=== PATIENT | male | born 1945 | race American Indian/Alaskan Native ===

== ENCOUNTER 2018-11-08 08:48 | Emergency (ER) | payer MEDICARE ==
--- NOTE | 2018-11-08 09:32 | Emergency Department Report ---
HPI - General Chief Complaint: Weakness Time Seen by Provider: 11/08/18 09:22 - HPI HPI: Room 4 The patient is a 73-year-old male presenting with chief complaint weakness. The patient reportedly is her personal [facility] and had difficulty getting up from the commode this morning. When asked what made him come to the emergency department the patient states "I don't know." The patient acknowledges he did have difficulty getting up from the commode this morning but currently denies having any complaints. Patient denies pain of any type, nausea/vomiting or shortness of breath. When asked how he is feeling currently the patient replies "fine." Location: [See above] Duration: [See above] Quality: [See above] Severity: [See above] Modifying factors: [see above] Context: [see above] Mode of transportation: [not driving] ED Past Medical Hx - Past Medical History Previous Medical History?: Yes Hx Hypertension: Yes Hx CVA: Yes Additional medical history: A-fib - Surgical History Past Surgical History?: Yes Additional Surgical History: pacemaker - Family History Family history: no significant - Social History Smoking Status: Never Smoker Substance Use Type: Alcohol (occasional) ED Review of Systems ROS: Stated complaint: BOTH LEG PAIN/WEAKNESS Other details as noted in HPI Constitutional: denies: fever Eyes: denies: eye pain ENT: denies: throat pain Respiratory: denies: shortness of breath Cardiovascular: denies: chest pain Endocrine: no symptoms reported Gastrointestinal: denies: abdominal pain Genitourinary: denies: dysuria Musculoskeletal: denies: back pain Neurological: denies: headache Physical Exam - Physical Exam Vital Signs: Vital Signs 11/08/18 11/08/18 09:12 09:27 Temperature 97.6 F Pulse Rate 60 Respiratory 18 20 Rate Blood Pressure 148/55 O2 Sat by Pulse 94 95 Oximetry Physical Exam: GENERAL: The patient is well-developed well-nourished male lying on stretcher not appearing to be in acute distress. [] HEENT: Normocephalic. Atraumatic. Extraocular motions are intact. Patient has moist mucous membranes. NECK: Supple. Trachea midline CHEST/LUNGS: Clear to auscultation. There is no respiratory distress noted. HEART/CARDIOVASCULAR: Regular. There is no tachycardia. There is no gallop rub or murmur. ABDOMEN: Abdomen is soft, nontender. Patient has normal bowel sounds. There is no abdominal distention. SKIN: There is no rash. There is no edema. There is no diaphoresis. NEURO: The patient is awake, alert, and oriented. The patient is cooperative. The patient has right-sided weakness from previous CVA. The patient has mild expressive aphasia from previous CVA. MUSCULOSKELETAL: There is no evidence of acute injury. ED Course Vital Signs 11/08/18 11/08/18 09:12 09:27 Temperature 97.6 F Pulse Rate 60 Respiratory 18 20 Rate Blood Pressure 148/55 O2 Sat by Pulse 94 95 Oximetry ED Medical Decision Making - Lab Data Result diagrams: 11/08/18 09:40 11/08/18 09:40 Laboratory Tests 11/08/18 11/08/18 11/08/18 09:40 09:40 09:40 WBC 7.2 RBC 4.71 Hgb 14.4 Hct 42.5 MCV 90 MCH 31 MCHC 34 RDW 15.4 H Plt Count 173 Lymph % (Auto) 4.6 L [place] % (Auto) 4.3 Eos % (Auto) 1.2 Baso % (Auto) 2.0 H Lymph # 0.3 L [place] # 0.3 Eos # 0.1 Baso # 0.1 Seg Neutrophils % 87.9 H Seg Neutrophils # 6.3 PT INR APTT Sodium 133 L Potassium 3.9 Chloride 96.5 L Carbon Dioxide 21 L Anion Gap 19 BUN 21 H Creatinine 1.9 H Estimated GFR 42 BUN/Creatinine Ratio 11 Glucose 210 H Calcium 9.3 Magnesium 1.90 Total Bilirubin 0.90 AST 20 ALT 24 Alkaline Phosphatase 111 Total Creatine Kinase 134 CK-MB (CK-2) 3.9 CK-MB (CK-2) Rel Index 2.9 Troponin T < 0.010 Total Protein 7.3 Albumin 4.1 Albumin/Globulin Ratio 1.3 TSH 6.150 H Free T4 1.00 Urine Color Urine Turbidity Urine pH Ur Specific [place] Urine Protein Urine Glucose (UA) Urine Ketones Urine Blood Urine Nitrite Urine Bilirubin Urine Urobilinogen Ur Leukocyte Esterase Urine WBC (Auto) Urine RBC (Auto) Urine Mucus 11/08/18 11/08/18 09:40 Unknown WBC RBC Hgb Hct MCV MCH MCHC RDW Plt Count Lymph % (Auto) [place] % (Auto) Eos % (Auto) Baso % (Auto) Lymph # [place] # Eos # Baso # Seg Neutrophils % Seg Neutrophils # PT 17.0 H INR 1.42 H APTT 30.9 Sodium Potassium Chloride Carbon Dioxide Anion Gap BUN Creatinine Estimated GFR BUN/Creatinine Ratio Glucose Calcium Magnesium Total Bilirubin AST ALT Alkaline Phosphatase Total Creatine Kinase CK-MB (CK-2) CK-MB (CK-2) Rel Index Troponin T Total Protein Albumin Albumin/Globulin Ratio TSH Free T4 Urine Color Yellow Urine Turbidity Clear Urine pH 6.0 Ur Specific [place] 1.015 Urine Protein <15 mg/dl Urine Glucose (UA) 150 Urine Ketones Tr Urine Blood Neg Urine Nitrite Neg Urine Bilirubin Neg Urine Urobilinogen < 2.0 Ur Leukocyte Esterase Neg Urine WBC (Auto) < 1.0 Urine RBC (Auto) 3.0 Urine Mucus Few - EKG Data -: EKG Interpreted by Me Rate: normal - EKG Data When compared to previous EKG there are: previous EKG unavailable 11/08/18 10:56 Paced rhythm - Differential Diagnosis symptomatic anemia, hypothyroidism, electrolyte abnormality Critical care attestation.: If time is entered above; I have spent that time in minutes in the direct care of this critically ill patient, excluding procedure time. ED Disposition Clinical Impression: Renal insufficiency Disposition: DC-01 TO HOME OR SELFCARE Is pt being admited?: No Does the pt Need Aspirin: No Condition: Stable Additional Instructions: Return to the emergency department immediately should you develop worsening symptoms, fever, inability to tolerate food or liquid or any other concerns. Referrals: [facility] MD GLORIA [Primary Care Provider] - 3-5 Days MILLIE AVELAR DO [Staff Physician] - 3-5 Days (Dr. Avelar is a kids activities coach. Please follow up with him for further evaluation of your kidney function) Time of Disposition: 10:57
[2018-11-08 09:58] LABS: Basophils # (Auto) 0.1 K/mm3 (0.0-0.1); Eosinophils # (Auto) 0.1 K/mm3 (0.0-0.4); Eosinophils % (Auto) 1.2 % (0.0-4.3); Hematocrit 42.5 % (35.5-45.6); Hemoglobin 14.4 gm/dl (11.8-15.2); Lymphocytes # (Auto) 0.3 K/mm3 (1.2-5.4); Lymphocytes % (Auto) 4.6 % (13.4-35.0); Mean Corpuscular HGB Conc 34 % (32-34); Mean Corpuscular Volume 90 fl (84-94); Monocytes # (Auto) 0.3 K/mm3 (0.0-0.8); Monocytes % (Auto) 4.3 % (0.0-7.3); Platelet Count 173 K/mm3 (140-440); Red Blood Count 4.71 M/mm3 (3.65-5.03); Red Cell Distribution Width 15.4 % (13.2-15.2)
[2018-11-08 10:01] LABS: Bilirubin,Urine NEG (Negative); Blood,Urine NEG (Negative); Color,Urine Yellow (Yellow); Mucus,Urine FEW /HPF; Protein,Urine <15 mg/dL mg/dL (Negative); Urobilinogen,Urine < 2.0 mg/dL (<2.0); WBC,Urine < 1.0 /HPF (0.0-6.0)
[2018-11-08 10:10] LABS: INR 1.42 (0.87-1.13); Partial Thromboplastin Time 30.9 Sec. (24.2-36.6)
[2018-11-08 10:21] LABS: Creatine Kinase MB 3.9 ng/mL (0.0-4.0)
[2018-11-08 10:23] LABS: Alanine Aminotransferase 24 units/L (7-56); Albumin 4.1 g/dL (3.9-5); BUN/Creatinine Ratio 11; Blood Urea Nitrogen 21 mg/dL (9-20); Calcium 9.3 mg/dL (8.4-10.2); Hemolysis Index 3
[2018-11-08 13:51] VITALS: BP 158/62
== END 2018-11-08 13:52 | disposition home or self-care (01) ==
LOC: ED 08:48
DX: N28.9 Disorder of kidney and ureter, unspecified (principal); I10 Essential (primary) hypertension; I48.91 Unspecified atrial fibrillation; Z86.73 Personal history of transient ischemic attack (TIA), and cerebral infarction without residual deficits; Z98.890 Other specified postprocedural states; Z95.0 Presence of cardiac pacemaker
CPT/HCPCS: 36415; 80053; 81001; 82550; 82553; 83735; 84439; 84443; 84484; 85025; 85610; 85730; 93005; 93010; 99283

== ENCOUNTER 2018-11-12 18:32 | Inpatient (IN) | payer MEDICARE ==
[2018-11-12] MEDS ORDERED: NACL 0.9% 500 ML 500 ML IV ONE ×2 (19:19→20:38)
[2018-11-12] MEDS ORDERED: ATROVENT IH ONE (19:21)
[2018-11-12] MEDS ORDERED: PROVENTIL IH ONE (19:21)
--- NOTE | 2018-11-12 19:25 | Emergency Department Report ---
ED General Adult HPI - General Chief complaint: Dyspnea/Respdistress Stated complaint: SEPSIS Time Seen by Provider: 11/12/18 19:11 Source: patient, EMS (verbal report received from EMS.ems notes not available at time of chart dictation), RN notes reviewed, old records reviewed Mode of arrival: Stretcher Limitations: Physical Limitation, Other - History of Present Illness Initial comments: This is a 73-year-old gentleman. The patient does not known to this provider previously. We do not know who his primary care doctor is. Apparently, the patient has a history of either A. fib or a flutter, worse if he is taking systemic anticoagulation, eliquis Past medical history also includes presumed renal insufficiency, question dementia, known history of stroke with reported right sided weakness The patient is brought to the hospital by EMS with a complaint of weakness. Apparently, the patient was found on the floor of his house, for uncertain d uration of time, and for uncertain mechanism. As per verbal report from EMS, last known well time is 4:00 PM today. EMS cannot tell me when they were contacted. The patient himself. The patient denies physical pain. The patient cannot tell me how he fell. The patient is not able to describe exacerbating or relieving factors, or qualitative nature of his symptoms. -: unknown Radiation: other Quality: other Consistency: other Worsens with: other Associated Symptoms: confusion, weakness, other - Related Data Allergies Allergy/AdvReac Type Severity Reaction Status Date / Time No Known Allergies Allergy Verified 11/12/18 22:27 ED Review of Systems ROS: Stated complaint: SEPSIS Other details as noted in HPI Comment: Unobtainable due to pts medical conditions Cardiovascular: denies: chest pain, syncope Gastrointestinal: denies: abdominal pain Neurological: confusion. denies: headache ED Past Medical Hx - Past Medical History Hx Hypertension: Yes Hx CVA: Yes Additional medical history: A-fib - Surgical History Additional Surgical History: pacemaker - Social History Smoking Status: Never Smoker Substance Use Type: Alcohol (occasional) ED Physical Exam - General Limitations: Altered Mental Status, Physical Limitation, Other General appearance: alert, anxious - Head Head exam: Present: atraumatic, normocephalic - Eye Eye exam: Present: normal appearance, EOMI. Absent: nystagmus - ENT ENT exam: Present: normal exam, normal orophraynx, mucous membranes moist, normal external ear exam - Neck Neck exam: Present: normal inspection, full ROM. Absent: tenderness, meningismu s - Respiratory Respiratory exam: Present: rhonchi, decreased breath sounds. Absent: stridor - Cardiovascular Cardiovascular Exam: Present: irregular rhythm. Absent: systolic murmur, diastolic murmur, rubs, gallop - GI/Abdominal GI/Abdominal exam: Present: soft. Absent: distended, tenderness, guarding, rebound, rigid, pulsatile mass - Rectal Rectal exam: Present: normal inspection, normal rectal tone, heme (+) stool, other (curtain feller blindstitch by bruce cordova) - Extremities Exam Extremities exam: Present: other (there is no long bony tenderness. The pelvis is stable. 2+ pulses noted in the bilateral upper, lower extremities.). Absent: normal inspection (there is ecchymosis noted to the right upper extremity. Contractures noted in the right upper extremity.) - Back Exam Back exam: Present: normal inspection. Absent: tenderness, CVA tenderness (R), paraspinal tenderness, vertebral tenderness - Neurological Exam Neurological exam: Present: altered, other (the patient is awake to name. The patient follows commands. He moves his left arm and his left leg spontaneously. He has chronic weakness in his right arm and right leg as per EMS report. There is no facial droop. ) - Psychiatric Psychiatric exam: Present: anxious - Skin Skin exam: Present: warm, ecchymosis ED Course Vital Signs 11/12/18 11/12/18 11/12/18 19:18 19:30 19:46 Temperature Pulse Rate 80 80 80 Pulse Rate [ Anterior] Respiratory 14 25 H 17 Rate Respiratory Rate [Anterior] Blood Pressure 123/58 116/80 O2 Sat by Pulse 93 67 L 89 Oximetry 11/12/18 11/12/18 11/12/18 19:50 20:00 20:01 Temperature Pulse Rate 73 Pulse Rate [ 62 Anterior] Respiratory 22 26 H Rate Respiratory 19 Rate [Anterior] Blood Pressure 122/63 O2 Sat by Pulse 47 L 94 Oximetry 11/12/18 11/12/18 11/12/18 20:09 20:16 20:17 Temperature 98.9 F Pulse Rate 80 Pulse Rate [ 65 Anterior] Respiratory 14 Rate Respiratory 19 Rate [Anterior] Blood Pressure 139/118 O2 Sat by Pulse 85 96 Oximetry 11/12/18 11/12/18 11/12/18 20:30 21:00 21:16 Temperature Pulse Rate 76 80 80 Pulse Rate [ Anterior] Respiratory 16 19 15 Rate Respiratory Rate [Anterior] Blood Pressure 111/72 114/56 120/50 O2 Sat by Pulse 86 77 L 78 L Oximetry 11/12/18 11/12/18 11/12/18 21:30 21:46 22:00 Temperature Pulse Rate 80 80 80 Pulse Rate [ Anterior] Respiratory 17 17 19 Rate Respiratory Rate [Anterior] Blood Pressure 120/50 139/51 139/51 O2 Sat by Pulse 94 87 79 L Oximetry 11/12/18 11/12/18 11/12/18 22:44 22:46 23:00 Temperature Pulse Rate 80 80 80 Pulse Rate [ Anterior] Respiratory 17 21 16 Rate Respiratory Rate [Anterior] Blood Pressure 139/64 139/64 131/67 O2 Sat by Pulse 100 100 100 Oximetry 11/12/18 11/12/18 11/12/18 23:16 23:30 23:46 Temperature Pulse Rate 80 80 80 Pulse Rate [ Anterior] Respiratory 16 18 22 Rate Respiratory Rate [Anterior] Blood Pressure 141/61 136/66 136/66 O2 Sat by Pulse 100 97 87 Oximetry 11/13/18 11/13/18 11/13/18 00:00 00:08 00:16 Temperature Pulse Rate 80 80 80 Pulse Rate [ Anterior] Respiratory 10 L 14 22 Rate Respiratory Rate [Anterior] Blood Pressure 129/64 136/66 136/66 O2 Sat by Pulse 99 98 98 Oximetry - Reevaluation(s) Reevaluation #1: 11/12/18 20:39 Differential diagnosis, including but not limited to: debility, dementia, intracranial injury, cervical spine injury, GI bleed, retroperitoneal hematoma, pneumonia, urinary tract infection Assessment and plan: 73-year-old gentleman, reportedly on systemic anticoagulation, has a known history of right-sided hemiparesthesia, found down today, follows unwitnessed, suspect mechanical fall. Patient so far is afebrile with reassuring vital signs. He is awake and protecting his airway, however, he is confused. Noncontrast CT scan of the brain, cervical spine ordered. CT scan of the abdomen and pelvis ordered to evaluate for retroperitoneal hematoma. He has had a 10 point drop in his hematocrit to previous visit within the past 5 days. His rectal exam shows brown stool that is guaiac positive. His laboratory studies also show worsening renal insufficiency, elevated troponin, and myositis. Most likely experiencing type II troponin leak, he also has hyperglycemia. Arterial blood gases bizarre, will repeat in 2 hours Plan to admit to the medical service for medical optimization, case management consult, physical therapy consult once initial diagnostics have resulted. Also found to be hyperglycemic, he will be given insulin. Arterial pH is reported at 7.317. Patient will be started on high flow nasal cannula. Reevaluation #2: 11/12/18 21:34 Discussed with gastroenterology, Dr. Ring, his group will follow in consultation. Recommends nothing by mouth after midnight, and holding systemic anticoagulation. Reevaluation #3: 11/13/18 00:49 CT scan of the brain, cervical spine negative for acute disease. CT scan of the abdomen and pelvis negative for acute disease and retroperitoneal bleed. In the [place], the patient had a reported seizure, nontraumatic, lasted for a few seconds, was described as generalized tonic-clonic. He is loaded with Keppra. No additional convulsive events have been noted so far. Seizure precautions have been ordered. The Hospital physician, Dr. Kessler has admitted patient to the medical service. ED Medical Decision Making - Lab Data Result diagrams: 11/12/18 19:28 11/12/18 19:28 Vital Signs 11/12/18 11/12/18 11/12/18 19:50 20:01 20:09 Temperature 98.9 F Pulse Rate [ 62 Anterior] Respiratory 26 H Rate Respiratory 19 Rate [Anterior] O2 Sat by Pulse 94 Oximetry 11/12/18 11/12/18 20:16 20:17 Temperature Pulse Rate [ 65 Anterior] Respiratory Rate Respiratory 19 Rate [Anterior] O2 Sat by Pulse 96 Oximetry Lab Results 11/12/18 11/12/18 11/12/18 Range/Units 19:28 19:28 19:28 WBC 13.1 H (4.5-11.0) K/mm3 RBC 3.62 L (3.65-5.03) M/mm3 Hgb 11.3 L (11.8-15.2) gm/dl Hct 33.6 L (35.5-45.6) % MCV 93 (84-94) fl MCH 31 (28-32) pg MCHC 34 (32-34) % RDW 15.1 (13.2-15.2) % Plt Count 225 (140-440) K/mm3 Lymph % (Auto) 6.7 L (13.4-35.0) % [place] % (Auto) 7.5 H (0.0-7.3) % Eos % (Auto) 0.0 (0.0-4.3) % Baso % (Auto) 0.3 (0.0-1.8) % Lymph # 0.9 L (1.2-5.4) K/mm3 [place] # 1.0 H (0.0-0.8) K/mm3 Eos # 0.0 (0.0-0.4) K/mm3 Baso # 0.0 (0.0-0.1) K/mm3 Seg Neutrophils % 85.5 H (40.0-70.0) % Seg Neutrophils # 11.2 H (1.8-7.7) K/mm3 PT (12.2-14.9) Sec. INR (0.87-1.13) APTT (24.2-36.6) Sec. Sodium 134 L (137-145) mmol/L Potassium 4.4 (3.6-5.0) mmol/L Chloride 95.6 L (98-107) mmol/L Carbon Dioxide 10 L D (22-30) mmol/L Anion Gap 33 mmol/L BUN 45 H (9-20) mg/dL Creatinine 2.8 H (0.8-1.5) mg/dL Estimated GFR 27 ml/min BUN/Creatinine Ratio 16 % Glucose 361 H (75-100) mg/dL POC Glucose (70-105) Calcium 9.2 (8.4-10.2) mg/dL Magnesium (1.7-2.3) mg/dL Total Bilirubin 1.70 H (0.1-1.2) mg/dL AST 46 H (5-40) units/L ALT 52 (7-56) units/L Alkaline Phosphatase 95 (35-129) units/L Ammonia (25-60) umol/L Total Creatine Kinase 1009 H (55-170) units/L Troponin T 0.071 H D (0.00-0.029) ng/mL Total Protein 7.2 (6.3-8.2) g/dL Albumin 3.3 L (3.9-5) g/dL Albumin/Globulin Ratio 0.8 % Salicylates (2.8-20.0) mg/dL Acetaminophen (10.0-30.0) ug/mL Plasma/Serum Alcohol < 0.01 (0-0.07) % 11/12/18 11/12/18 11/12/18 Range/Units 19:28 19:28 19:28 WBC (4.5-11.0) K/mm3 RBC (3.65-5.03) M/mm3 Hgb (11.8-15.2) gm/dl Hct (35.5-45.6) % MCV (84-94) fl MCH (28-32) pg MCHC (32-34) % RDW (13.2-15.2) % Plt Count (140-440) K/mm3 Lymph % (Auto) (13.4-35.0) % [place] % (Auto) (0.0-7.3) % Eos % (Auto) (0.0-4.3) % Baso % (Auto) (0.0-1.8) % Lymph # (1.2-5.4) K/mm3 [place] # (0.0-0.8) K/mm3 Eos # (0.0-0.4) K/mm3 Baso # (0.0-0.1) K/mm3 Seg Neutrophils % (40.0-70.0) % Seg Neutrophils # (1.8-7.7) K/mm3 PT 24.9 H (12.2-14.9) Sec. INR 2.31 H (0.87-1.13) APTT 28.1 (24.2-36.6) Sec. Sodium (137-145) mmol/L Potassium (3.6-5.0) mmol/L Chloride (98-107) mmol/L Carbon Dioxide (22-30) mmol/L Anion Gap mmol/L BUN (9-20) mg/dL Creatinine (0.8-1.5) mg/dL Estimated GFR ml/min BUN/Creatinine Ratio % Glucose (75-100) mg/dL POC Glucose (70-105) Calcium (8.4-10.2) mg/dL Magnesium 2.80 H (1.7-2.3) mg/dL Total Bilirubin (0.1-1.2) mg/dL AST (5-40) units/L ALT (7-56) units/L Alkaline Phosphatase (35-129) units/L Ammonia 37.0 (25-60) umol/L Total Creatine Kinase 987 H (55-170) units/L Troponin T (0.00-0.029) ng/mL Total Protein (6.3-8.2) g/dL Albumin (3.9-5) g/dL Albumin/Globulin Ratio % Salicylates (2.8-20.0) mg/dL Acetaminophen (10.0-30.0) ug/mL Plasma/Serum Alcohol (0-0.07) % 11/12/18 11/12/18 11/12/18 Range/Units 19:28 19:28 20:18 WBC (4.5-11.0) K/mm3 RBC (3.65-5.03) M/mm3 Hgb (11.8-15.2) gm/dl Hct (35.5-45.6) % MCV (84-94) fl MCH (28-32) pg MCHC (32-34) % RDW (13.2-15.2) % Plt Count (140-440) K/mm3 Lymph % (Auto) (13.4-35.0) % [place] % (Auto) (0.0-7.3) % Eos % (Auto) (0.0-4.3) % Baso % (Auto) (0.0-1.8) % Lymph # (1.2-5.4) K/mm3 [place] # (0.0-0.8) K/mm3 Eos # (0.0-0.4) K/mm3 Baso # (0.0-0.1) K/mm3 Seg Neutrophils % (40.0-70.0) % Seg Neutrophils # (1.8-7.7) K/mm3 PT (12.2-14.9) Sec. INR (0.87-1.13) APTT (24.2-36.6) Sec. Sodium (137-145) mmol/L Potassium (3.6-5.0) mmol/L Chloride (98-107) mmol/L Carbon Dioxide (22-30) mmol/L Anion Gap mmol/L BUN (9-20) mg/dL Creatinine (0.8-1.5) mg/dL Estimated GFR ml/min BUN/Creatinine Ratio % Glucose (75-100) mg/dL POC Glucose 287 H (70-105) Calcium (8.4-10.2) mg/dL Magnesium (1.7-2.3) mg/dL Total Bilirubin (0.1-1.2) mg/dL AST (5-40) units/L ALT (7-56) units/L Alkaline Phosphatase (35-129) units/L Ammonia (25-60) umol/L Total Creatine Kinase (55-170) units/L Troponin T (0.00-0.029) ng/mL Total Protein (6.3-8.2) g/dL Albumin (3.9-5) g/dL Albumin/Globulin Ratio % Salicylates < 0.3 L (2.8-20.0) mg/dL Acetaminophen < 5.0 L (10.0-30.0) ug/mL Plasma/Serum Alcohol (0-0.07) % - EKG Data 11/12/18 20:33 The EKG is limited by motion artifact. It appears to be a letter rhythm with variable conduction. There is a left axis deviation. QTc is prolonged. There is motion artifact. It is not consistent with ST elevation myocardial infarction. - Radiology Data Radiology results: report reviewed, image reviewed Print Report Referring Physician: CAROLYNN ONEIL Patient Name: DACIA KAT Date of : 1945 Sex: Male Report Date: 2018-11-12 Report Status: Finalized Findings [facility] [address] [place] [address] XRay Report Signed Patient: DACIA KAT MR#: [id number] : 1945 Acct:[id number] Age/Sex: 73 / M ADM Date: 11/12/18 Loc: ED Attending Dr: Ordering Physician: CAROLYNN NOEIL MD Date of Service: 11/12/18 Procedure(s): XR pelvis 1-2V Accession Number(s): [id number] cc: CAROLYNN ONEIL MD Fluoro Time In Minutes: AP PELVIS 11/12/2018 INDICATION / CLINICAL INFORMATION: Trauma. COMPARISON: None available. FINDINGS: No fracture. No hip dislocation. Signer Name: Bruno Stevens MD Signed: 11/12/2018 8:09 PM Workstation Name: [id number] Transcribed By: KWAKU Dictated By: Bruno Stevens MD Electronically Authenticated By: Bruno Stevens MD Signed Date/Time: 11/12/182008 Print Report Referring Physician: CAROLYNN ONEIL Patient Name: DACIA KAT Date of : 1945 Sex: Male Report Date: 2018-11-12 Report Status: Finalized Findings [address] [address] XRay Report Signed Patient: DACIA KAT MR#: [id number] : 1945 Acct:[id number] Age/Sex: 73 / M ADM Date: 11/12/18 Loc: ED Attending Dr: Ordering Physician: CAROLYNN ONEIL MD Date of Service: 11/12/18 Procedure(s): XR elbow 2V RT Accession Number(s): [id number] cc: CAROLYNN ONEIL MD Fluoro Time In Minutes: RIGHT ELBOW, 2 VIEWS INDICATION / CLINICAL INFORMATION: Trauma. COMPARISON: None available. FINDINGS: No fracture or dislocation. Posterior olecranon spurring. No evidence of joint effusion. Signer Name: Bruno Stevens MD Signed: 11/12/2018 8:09 PM Workstation Name: [id number] Transcribed By: KWAKU Dictated By: Bruno Stevens MD Electronically Authenticated By: Bruno Stevens MD Signed Date/Time: 11/12/182008 Print Report Referring Physician: CAROLYNN ONEIL Patient Name: DACIA KAT Date of : 1945 Sex: Male Report Date: 2018-11-12 Report Status: Finalized Findings [address] [address] XRay Report Signed Patient: DACIA KAT MR#: [id number] : 1945 Acct:[id number] Age/Sex: 73 / M ADM Date: 11/12/18 Loc: ED Attending Dr: Ordering Physician: CAROLYNN ONEIL MD Date of Service: 11/12/18 Procedure(s): XR chest 1V ap Accession Number(s): [id number] cc: CAROLYNN ONEIL MD Fluoro Time In Minutes: CHEST 1 VIEW INDICATION / CLINICAL INFORMATION: ams resp distress. COMPARISON: None available. FINDINGS: SUPPORT DEVICES: Dual-chamber pacemaker on the right HEART / MEDIASTINUM: No significant abnormality. LUNGS / PLEURA: No significant pulmonary or pleural abnormality. No pneumothorax. ADDITIONAL FINDINGS: Left nipple shadow incidentally noted IMPRESSION: 1. No acute findings. Signer Name: Bruno Stevens MD Signed: 11/12/2018 8:08 PM Workstation Name: [id number] Transcribed By: [place] Dictated By: Bruno Stevens MD Electronically Authenticated By: Bruno Stevens MD Signed Date/Time: 11/12/182007 DD/ 06 Critical Care Time: Yes Critical care time in (mins) excluding proc time.: 35 Critical care attestation.: If time is entered above; I have spent that time in minutes in the direct care of this critically ill patient, excluding procedure time. ED Disposition Clinical Impression: SAMARA (acute kidney injury), Myositis, Falls, Guaiac + stool, Convulsion Disposition: OP ADMIT IP TO THIS HOSP Is pt being admited?: Yes Condition: Fair [facility] GLORIA [Primary Care Provider] - 3-5 Days
[2018-11-12 19:50] LABS: Basophils % (Auto) 0.3 % (0.0-1.8); Hematocrit 33.6 % (35.5-45.6); Hemoglobin 11.3 gm/dl (11.8-15.2); Lymphocytes # (Auto) 0.9 K/mm3 (1.2-5.4); Lymphocytes % (Auto) 6.7 % (13.4-35.0); Mean Corpuscular HGB Conc 34 % (32-34); Mean Corpuscular Volume 93 fl (84-94); Monocytes % (Auto) 7.5 % (0.0-7.3); Platelet Count 225 K/mm3 (140-440); Red Blood Count 3.62 M/mm3 (3.65-5.03); Red Cell Distribution Width 15.1 % (13.2-15.2)
[2018-11-12 20:00] LABS: INR 2.31 (0.87-1.13)
[2018-11-12 20:01] LABS: Partial Thromboplastin Time 28.1 Sec. (24.2-36.6)
[2018-11-12 20:07] LABS: Albumin 3.3 g/dL (3.9-5); Calcium 9.2 mg/dL (8.4-10.2)
--- NOTE | 2018-11-12 20:12 | XRay Report ---
CHEST 1 VIEW INDICATION / CLINICAL INFORMATION: ams resp distress. COMPARISON: None available. FINDINGS: SUPPORT DEVICES: Dual-chamber pacemaker on the right HEART / MEDIASTINUM: No significant abnormality. LUNGS / PLEURA: No significant pulmonary or pleural abnormality. No pneumothorax. ADDITIONAL FINDINGS: Left nipple shadow incidentally noted IMPRESSION: 1. No acute findings. Signer Name: Bruno Stevens MD Signed: 11/12/2018 8:08 PM Workstation Name: [id number]
--- NOTE | 2018-11-12 20:13 | XRay Report ---
AP PELVIS 11/12/2018 INDICATION / CLINICAL INFORMATION: Trauma. COMPARISON: None available. FINDINGS: No fracture. No hip dislocation. Signer Name: Bruno Stevens MD Signed: 11/12/2018 8:09 PM Workstation Name: [id number]
--- NOTE | 2018-11-12 20:14 | XRay Report ---
RIGHT ELBOW, 2 VIEWS INDICATION / CLINICAL INFORMATION: Trauma. COMPARISON: None available. FINDINGS: No fracture or dislocation. Posterior olecranon spurring. No evidence of joint effusion. Signer Name: Bruno Stevens MD Signed: 11/12/2018 8:09 PM Workstation Name: [id number]
[2018-11-12 20:28] LABS: Chol/HDL Ratio 2.34 %
[2018-11-12] MEDS ORDERED: HumuLIN R IV ONE (20:38)
[2018-11-12 20:48] LABS: Bilirubin,Urine NEG (Negative); Blood,Urine MOD (Negative); Color,Urine Yellow (Yellow); Urobilinogen,Urine < 2.0 mg/dL (<2.0); WBC,Urine < 1.0 /HPF (0.0-6.0)
[2018-11-12 21:02] LABS: Amphetamine Screen,Urine PRESUMPTIVE NEGATIVE; Benzodiazepines Screen,Urine PRESUMPTIVE NEGATIVE; Cannabinoid Screen,Urine PRESUMPTIVE NEGATIVE; Cocaine Screen,Urine PRESUMPTIVE NEGATIVE; Methadone Screen,Urine PRESUMPTIVE NEGATIVE; Opiate Screen,Urine PRESUMPTIVE NEGATIVE
[2018-11-12] MEDS ORDERED: KEPPRA 500 MG in D5W 100 ML IV ONE (22:23)
--- NOTE | 2018-11-12 23:21 | Cat Scan Report ---
CT head/brain wo con INDICATION: Trauma. TECHNIQUE: All CT scans at this location are performed using CT dose reduction for ALARA by means of automated e xposure control. COMPARISON: None available. FINDINGS: Minimal mucosal thickening in the right maxillary and ethmoid sinuses. Visualized paranasal and masto id sinuses are otherwise clear. No cranial vault fracture or extracranial soft tissue swelling. 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 No mass, hemorrhage or other acute abnormality. IMPRESSION: 1. Chronic findings, but no definite acute abnormalities. Signer Name: Enoc Sullivan MD Signed: 11/12/2018 11:17 PM Workstation Name: [id number]
--- NOTE | 2018-11-12 23:31 | Cat Scan Report ---
CT cervical spine wo con INDICATION: Trauma. TECHNIQUE: All CT scans at this location are performed using CT dose reduction for ALARA by means of automated e xposure control. COMPARISON: None available. FINDINGS: Considerable spondylosis in the lower cervical spine. No appreciable fracture or other acute abnormal ity. IMPRESSION: 1. No acute fracture. Signer Name: Enoc Sullivan MD Signed: 11/12/2018 11:26 PM Workstation Name: [id number]
--- NOTE | 2018-11-12 23:43 | Cat Scan Report ---
CT abdomen pelvis wo con INDICATION: fall on [facility]. TECHNIQUE: All CT scans at this location are performed using CT dose reduction for ALARA by means of automated e xposure control. COMPARISON: None available. FINDINGS: Lung bases are clear. Liver, gallbladder, spleen, pancreas, right kidney and both adrenals are negati ve. Left kidney is small with very thinned cortex. Abdominal aorta is atherosclerotic, with a 3.4 cm aneurysm of the distal aorta. Common iliac arteries are atherosclerotic and ectatic. Pelvis Urinary bladder and distal ureters are negative. No free fluid. Sigmoid diverticulosis but no diverti culitis. There is an acute, slightly displaced fracture involving the right inferior pubic ramus. Fractures ar e also demonstrated in the right posterior ilium and in the right sacrum adjacent to the SI joint. IMPRESSION: 1. Pelvic fractures, as described. 2. 3.4 cm distal abdominal aortic aneurysm. 3. No definite acute soft tissue abnormalities. Signer Name: Enoc Sullivan MD Signed: 11/12/2018 11:39 PM Workstation Name: [id number]
[2018-11-13] MEDS ORDERED: TYLENOL PO PRN (00:50)
[2018-11-13] MEDS ORDERED: SODIUM CHLORIDE FLUSH SYRINGE 10 ML IV PRN (00:50)
[2018-11-13] MEDS ORDERED: ZOFRAN IV PRN (00:50)
[2018-11-13] MEDS ORDERED: PROTONIX IV ONE (01:42)
[2018-11-13] MEDS: PROTONIX IV SCH ×3 (01:48→22:48)
--- NOTE | 2018-11-13 02:40 | History and Physical Report ---
History of Present Illness Date of examination: 11/12/18 Date of admission: 11/13/18 00:50 History of present illness: Patient unable to give a history. 73-year-old male history of A. fib, CVA, chronic kidney disease, hypertension was brought to the emergency room for evaluation because he fell. Review of his labs from November 08 showed that he had a drop in his hemoglobin of 3 g, his stool was brown, heme positive. Review of systems unobtainable PAST MEDICAL HISTORY:A. fib, CVA, chronic kidney disease, hypertension PAST SURGICAL HISTORY:Unknown FAMILY HISTORY::Unknown SOCIAL HISTORY: :Unknown Medications and Allergies Allergies Allergy/AdvReac Type Severity Reaction Status Date / Time No Known Allergies Allergy Verified 11/12/18 22:27 Active Meds: Active Medications Acetaminophen (Tylenol) 650 mg PO Q4H PRN PRN Reason: Pain MILD(1-3)/Fever >100.5/CORTES Sodium Chloride (Nacl 0.45% 1000 Ml) 1,000 mls @ 75 mls/hr IV DIRECT EMERSON Ondansetron HCl (Zofran) 4 mg IV Q4H PRN PRN Reason: Nausea And Vomiting Pantoprazole Sodium (Protonix) 40 mg IV BID EMERSON Last Admin: 11/13/18 01:48 Dose: 40 mg Documented by: Sodium Chloride (Sodium Chloride Flush Syringe 10 Ml) 10 ml IV BID EMERSON Sodium Chloride (Sodium Chloride Flush Syringe 10 Ml) 10 ml IV PRN PRN PRN Reason: LINE FLUSH Exam - Physical Exam Narrative exam: General Apperance: The patient sitting in bed no acute distress HEENT: Normocephalic, atraumatic. Pupils equally round and reactive to light, extraocular movement intact, and no sclericterus or JVD or thyromegaly or nodule. Neck supple, no carotid bruit, mucous membranes moist, no exudate or erythema Heart: S1-S2, regular is rhythm Lungs: Clear to auscultation anteriorly bilaterally, breathing comfortable Abdomen: Positive bowel sounds, soft, nontender, nondistended, no organomegaly Extremities: No edema cyanosis clubbing Skin: no rash, nodule, warm and dry Neuro: Difficult to assess - Constitutional Vitals: Temp Pulse Resp BP Pulse Ox 98.9 F 80 10 L 120/46 100 11/12/18 20:09 11/13/18 02:35 11/13/18 01:16 11/13/18 01:16 11/13/18 01:16 Results - Labs CBC & Chem 7: 11/12/18 19:28 11/12/18 19:28 Labs: Abnormal lab results 11/12/18 11/12/18 11/12/18 Range/Units 19:28 19:28 19:28 WBC 13.1 H (4.5-11.0) K/mm3 RBC 3.62 L (3.65-5.03) M/mm3 Hgb 11.3 L (11.8-15.2) gm/dl Hct 33.6 L (35.5-45.6) % Lymph % (Auto) 6.7 L (13.4-35.0) % [place] % (Auto) 7.5 H (0.0-7.3) % Lymph # 0.9 L (1.2-5.4) K/mm3 [place] # 1.0 H (0.0-0.8) K/mm3 Seg Neutrophils % 85.5 H (40.0-70.0) % Seg Neutrophils # 11.2 H (1.8-7.7) K/mm3 PT 24.9 H (12.2-14.9) Sec. INR 2.31 H (0.87-1.13) Sodium 134 L (137-145) mmol/L Chloride 95.6 L (98-107) mmol/L Carbon Dioxide 10 L D (22-30) mmol/L BUN 45 H (9-20) mg/dL Creatinine 2.8 H (0.8-1.5) mg/dL Glucose 361 H (75-100) mg/dL POC Glucose (70-105) Magnesium (1.7-2.3) mg/dL Total Bilirubin 1.70 H (0.1-1.2) mg/dL AST 46 H (5-40) units/L Total Creatine Kinase 1009 H (55-170) units/L Troponin T 0.071 H D (0.00-0.029) ng/mL Albumin 3.3 L (3.9-5) g/dL Salicylates (2.8-20.0) mg/dL Acetaminophen (10.0-30.0) ug/mL 11/12/18 11/12/1811/12/19 Range/Units 19:28 19:28 19:28 WBC (4.5-11.0) K/mm3 RBC (3.65-5.03) M/mm3 Hgb (11.8-15.2) gm/dl Hct (35.5-45.6) % Lymph % (Auto) (13.4-35.0) % [place] % (Auto) (0.0-7.3) % Lymph # (1.2-5.4) K/mm3 [place] # (0.0-0.8) K/mm3 Seg Neutrophils % (40.0-70.0) % Seg Neutrophils # (1.8-7.7) K/mm3 PT (12.2-14.9) Sec. INR (0.87-1.13) Sodium (137-145) mmol/L Chloride (98-107) mmol/L Carbon Dioxide (22-30) mmol/L BUN (9-20) mg/dL Creatinine (0.8-1.5) mg/dL Glucose (75-100) mg/dL POC Glucose (70-105) Magnesium 2.80 H (1.7-2.3) mg/dL Total Bilirubin (0.1-1.2) mg/dL AST (5-40) units/L Total Creatine Kinase 987 H (55-170) units/L Troponin T (0.00-0.029) ng/mL Albumin (3.9-5) g/dL Salicylates < 0.3 L (2.8-20.0) mg/dL Acetaminophen < 5.0 L (10.0-30.0) ug/mL 11/12/18 Range/Units 20:18 WBC (4.5-11.0) K/mm3 RBC (3.65-5.03) M/mm3 Hgb (11.8-15.2) gm/dl Hct (35.5-45.6) % Lymph % (Auto) (13.4-35.0) % [place] % (Auto) (0.0-7.3) % Lymph # (1.2-5.4) K/mm3 [place] # (0.0-0.8) K/mm3 Seg Neutrophils % (40.0-70.0) % Seg Neutrophils # (1.8-7.7) K/mm3 PT (12.2-14.9) Sec. INR (0.87-1.13) Sodium (137-145) mmol/L Chloride (98-107) mmol/L Carbon Dioxide (22-30) mmol/L BUN (9-20) mg/dL Creatinine (0.8-1.5) mg/dL Glucose (75-100) mg/dL POC Glucose 287 H (70-105) Magnesium (1.7-2.3) mg/dL Total Bilirubin (0.1-1.2) mg/dL AST (5-40) units/L Total Creatine Kinase (55-170) units/L Troponin T (0.00-0.029) ng/mL Albumin (3.9-5) g/dL Salicylates (2.8-20.0) mg/dL Acetaminophen (10.0-30.0) ug/mL - Imaging and Cardiology Chest x-ray: report reviewed CT scan - abdomen: report reviewed CT Scan - head: report reviewed CT scan - pelvis: report reviewed Assessment and Plan CT C-spine, x-ray of hip, elbow reviewed Assessment GI bleed Acute on chronic renal insufficiency Pelvic fracture Abnormal cardiac enzymes A. fib Abdominal aortic aneurysm 3.4 cm Plan Admit medicine Start IV fluid, IV Protonix Check serial hemoglobin, consult GI Consult orthopedic, monitor renal function Cardiac enzymes, echo Consult renal, DVT prophalaxis Outpatient follow for aneurysm
[2018-11-13 08:28] LABS: Basophils % (Auto) 0.1 % (0.0-1.8); Hematocrit 30.5 % (35.5-45.6); Hemoglobin 10.4 gm/dl (11.8-15.2); Lymphocytes % (Auto) 9.3 % (13.4-35.0); Mean Corpuscular HGB Conc 34 % (32-34); Mean Corpuscular Volume 91 fl (84-94); Monocytes # (Auto) 0.8 K/mm3 (0.0-0.8); Monocytes % (Auto) 7.4 % (0.0-7.3); Platelet Count 179 K/mm3 (140-440); Red Blood Count 3.34 M/mm3 (3.65-5.03); Red Cell Distribution Width 15.2 % (13.2-15.2)
[2018-11-13 08:50] LABS: Creatine Kinase MB 19.1 ng/mL (0.0-4.0)
[2018-11-13 08:51] LABS: Calcium 8.6 mg/dL (8.4-10.2)
--- NOTE | 2018-11-13 09:24 | Consultation ---
History of Present Illness - History of Present Illness Thank you for the consultation ! Patient was evaluated today My assessment and plan are as follows; Acute on chronic renal failure, etiology is unclear to me at this time will orde r further workup, Judicious hydration, patiently monitor renal function, I emergent indication for renal replacement therapy at this time From renal standpoint patient's BUN/creatinine is 45 creatinine 2.8 bicarbonate 10 sodium 134 Patient has history of chronic kidney disease Baseline creatinine was 1.9 early this month CAT scan of the abdomen and pelvis are obtained showed evidence of unilateral thinning of the kidney he will need dedicated renal ultrasound sonogram of the kidney, may have renovascular disease Chest x-ray did not show any evidence of pulmonary vascular congestion Acidosis: Currently improving bicarbonate 20 now which was 10 yesterday Blood pressure was normal/ low upon arrival 97/58 Mild increase in CPK: Hydration follow up on CPK likely of low-grade rhabdomyolysis Hyponatremia: Appears to be improving at this time Anemia, normal platelet count current hemoglobin is 10.4 needs ongoing monitoring? Due to chronic kidney disease History of atrial arrhythmias, renal insufficiency, possible dementia, right- sided weakness, pacemaker placement, hypertension, on chronic anticoagulation, cervical spine injury, GI bleed, retroperitoneal hematoma, pneumonia, urinary tract infection Admitted with status post fall, altered mental status/ patient was noted to have respiratory distress and dyspnea upon arrival Severe acidosis bicarbonate was 10 We will continue to follow and make recommendations from renal standpoint. Thank you for the consultation Author: Dirk Santiago M.D. [facility], [address] [place] [address] Tel; [phone] Source of information: From patient History of present illness Patient is a [id number] male who has been admitted here with acute on chronic renal failure, patient is a very poor historian, he was brought into the hospital with complaints of generalized weakness and fatigue and fall Upon arrival he was noted to have a creatinine of 2.8 his baseline creatinine is around 1.9 he was severely acidotic bicarbonate was around 10 with sodium of 134 hemoglobin 11.3 with a normal platelet count Consultation was placed for management of renal failure Previous record were reviewed current medications reviewed Events of this hospitalization was also reviewed Patient is unable to provide any history Past medical history: chronic kidney disease Atrial fibrillation CVA Hypertension Current allergies: Reviewed from the current chart Social history: Reviewed from the current chart Family history: Reviewed from the current chart Review of system: Positive for generalized weakness fatigue poor appetite and dry mouth All other review of systems negative Physical examination Vitals: Reviewed General: No acute distress HEENT: Oral mucosa very dryno pallor or icterus Neck: Supple without any JVD thyromegaly or nodular mass Chest: Clear to auscultation Heart: Regular rate and rhythm S1-S2 heard no S3-S4 Abdomen: Soft nontender, bowel sounds present no renal bruit no suprapubic masses no CVA tenderness noted Extremity: Minimal edema very dry skin no peripheral cyanosis Endocrine: Thyroid not enlarged Psychiatric: No agitation and aggression noted Musculoskeletal: No joint effusion noted Labs and x-rays: Reviewed from this admission Medications and Allergies Allergies Allergy/AdvReac Type Severity Reaction Status Date / Time No Known Allergies Allergy Verified 11/12/18 22:27 Active Meds: Active Medications Acetaminophen (Tylenol) 650 mg PO Q4H PRN PRN Reason: Pain MILD(1-3)/Fever >100.5/CORTES Sodium Chloride (Nacl 0.45% 1000 Ml) 1,000 mls @ 75 mls/hr IV DIRECT EMERSON Ondansetron HCl (Zofran) 4 mg IV Q4H PRN PRN Reason: Nausea And Vomiting Pantoprazole Sodium (Protonix) 40 mg IV BID [facility] Last Admin: 11/13/18 01:48 Dose: 40 mg Documented by: Sodium Chloride (Sodium Chloride Flush Syringe 10 Ml) 10 ml IV BID EMERSON Sodium Chloride (Sodium Chloride Flush Syringe 10 Ml) 10 ml IV PRN PRN PRN Reason: LINE FLUSH Exam - Vital Signs Vital signs: Vital Signs Pulse Resp Pulse Ox 80 14 93 11/12/18 19:18 11/12/18 19:18 11/12/18 19:18 Results - Lab Results 11/16/18 05:15 11/15/18 04:16 Most recent lab results Calcium 8.6 mg/dL (8.4-10.2) 11/13/18 07:48 Magnesium 2.80 mg/dL (1.7-2.3) H 11/12/18 19:28
[2018-11-13] MEDS ORDERED: SODIUM BICARBONATE 150 MEQ in STERILE WATER 1,000 ML IV SCH (10:00)
[2018-11-13] MEDS: SODIUM CHLORIDE FLUSH SYRINGE 10 ML IV SCH ×2 (11:02→22:48)
--- NOTE | 2018-11-13 11:24 | Gastroenterology Consultation ---
History of Present Illness - Reason for Consult Consult date: 11/13/18 heme +stool, drop in H/H Requesting physician: CAROLYNN ONEIL - History of Present Illness Patient is a 73 y/o male with PMH of HTN, Afib (reported to be on anticoagulation at home), CVA (right sided weakness), question of dementia, and CKD who was brought to ED s/p fall for evaluation of weakness. Upon admission, he was found to worsening renal insufficiency along with a drop in H/H with guaiac positive stool to which GI has been consulted. Abd CT showed pelvic fractures and 3.4cm AAA but no acute GI process or bleeding. This morning patient was resting in bed w/o acute distress. Noted to be oriented to person but confused and unable to provide history (no family at bedside; history obta ined via chart review). Denies any GI complaints such as abd pain, N/V, or active signs of bleeding such as hematemesis, melena, or hematochezia (no signs of bleeding per nursing overnight or this am). Prior GI history or previous endoscopy procedures unknown. Past History Past Medical History: other (as per HPI) Past Surgical History: Other (pacemaker) Social history: denies: smoking, alcohol abuse Family history: other (unknown) Medications and Allergies Allergies Allergy/AdvReac Type Severity Reaction Status Date / Time No Known Allergies Allergy Verified 11/12/18 22:27 Active Meds: Active Medications Acetaminophen (Tylenol) 650 mg PO Q4H PRN PRN Reason: Pain MILD(1-3)/Fever >100.5/CORTES Sodium Chloride (Nacl 0.45% 1000 Ml) 1,000 mls @ 75 mls/hr IV DIRECT EMERSON Sodium Bicarbonate 150 meq/ (Sterile Water) 1,150 mls @ 75 mls/hr IV DIRECT EMERSON Last Admin: 11/13/18 11:01 Dose: 75 mls/hr Documented by: Ondansetron HCl (Zofran) 4 mg IV Q4H PRN PRN Reason: Nausea And Vomiting Pantoprazole Sodium (Protonix) 40 mg IV BID [facility] Last Admin: 11/13/18 11:02 Dose: 40 mg Documented by: Sodium Chloride (Sodium Chloride Flush Syringe 10 Ml) 10 ml IV BID [facility] Last Admin: 11/13/18 11:02 Dose: 10 ml Documented by: Sodium Chloride (Sodium Chloride Flush Syringe 10 Ml) 10 ml IV PRN PRN PRN Reason: LINE FLUSH medications reviewed/updated as required Review of Systems - Review of Systems ROS unobtainable: due to mental status Exam - Constitutional Vital Signs: Temp Pulse Resp BP Pulse Ox 97.0 F L 75 20 125/74 99 11/13/18 08:44 11/13/18 08:44 11/13/18 08:44 11/13/18 08:44 11/13/18 08:44 General appearance: no acute distress - Respiratory Respiratory effort: normal - Cardiovascular Rhythm: regular - Gastrointestinal General gastrointestinal: Present: soft, non-tender, non-distended, normal bowel sounds - Neurologic Neurological: oriented to person - Labs CBC & Chem 7: 11/13/18 07:48 11/13/18 07:48 Lab Results: Laboratory Results - last 24 hr 11/12/18 11/12/18 11/12/18 19:28 19:28 19:28 WBC 13.1 H RBC 3.62 L Hgb 11.3 L Hct 33.6 L MCV 93 MCH 31 MCHC 34 RDW 15.1 Plt Count 225 Lymph % (Auto) 6.7 L Tate % (Auto) 7.5 H Eos % (Auto) 0.0 Baso % (Auto) 0.3 Lymph # 0.9 L Tate # 1.0 H Eos # 0.0 Baso # 0.0 Seg Neutrophils % 85.5 H Seg Neutrophils # 11.2 H PT INR APTT Sodium 134 L Potassium 4.4 Chloride 95.6 L Carbon Dioxide 10 L D Anion Gap 33 BUN 45 H Creatinine 2.8 H Estimated GFR 27 BUN/Creatinine Ratio 16 Glucose 361 H POC Glucose Calcium 9.2 Magnesium Total Bilirubin 1.70 H AST 46 H ALT 52 Alkaline Phosphatase 95 Ammonia Total Creatine Kinase 1009 H CK-MB (CK-2) CK-MB (CK-2) Rel Index Troponin T 0.071 H D Total Protein 7.2 Albumin 3.3 L Albumin/Globulin Ratio 0.8 Triglycerides 95 Cholesterol 103 LDL Cholesterol Direct 58 HDL Cholesterol 44 Cholesterol/HDL Ratio 2.34 Urine Color Urine Turbidity Urine pH Ur Specific [place] Urine Protein Urine Glucose (UA) Urine Ketones Urine Blood Urine Nitrite Urine Bilirubin Urine Urobilinogen Ur Leukocyte Esterase Urine WBC (Auto) Urine RBC (Auto) Salicylates Urine Opiates Screen Urine Methadone Screen Acetaminophen Ur Barbiturates Screen Ur Phencyclidine Scrn Ur Amphetamines Screen U Benzodiazepines Scrn Urine Cocaine Screen U Marijuana (THC) Screen Drugs of Abuse Note Plasma/Serum Alcohol < 0.01 11/12/18 11/12/18 11/12/18 19:28 19:28 19:28 WBC RBC Hgb Hct MCV MCH MCHC RDW Plt Count Lymph % (Auto) Tate % (Auto) Eos % (Auto) Baso % (Auto) Lymph # Tate # Eos # Baso # Seg Neutrophils % Seg Neutrophils # PT 24.9 H INR 2.31 H APTT 28.1 Sodium Potassium Chloride Carbon Dioxide Anion Gap BUN Creatinine Estimated GFR BUN/Creatinine Ratio Glucose POC Glucose Calcium Magnesium 2.80 H Total Bilirubin AST ALT Alkaline Phosphatase Ammonia 37.0 Total Creatine Kinase 987 H CK-MB (CK-2) CK-MB (CK-2) Rel Index Troponin T Total Protein Albumin Albumin/Globulin Ratio Triglycerides Cholesterol LDL Cholesterol Direct HDL Cholesterol Cholesterol/HDL Ratio Urine Color Urine Turbidity Urine pH Ur Specific [place] Urine Protein Urine Glucose (UA) Urine Ketones Urine Blood Urine Nitrite Urine Bilirubin Urine Urobilinogen Ur Leukocyte Esterase Urine WBC (Auto) Urine RBC (Auto) Salicylates Urine Opiates Screen Urine Methadone Screen Acetaminophen Ur Barbiturates Screen Ur Phencyclidine Scrn Ur Amphetamines Screen U Benzodiazepines Scrn Urine Cocaine Screen U Marijuana (THC) Screen Drugs of Abuse Note Plasma/Serum Alcohol 11/12/18 11/12/18 11/12/18 19:28 19:28 20:18 WBC RBC Hgb Hct MCV MCH MCHC RDW Plt Count Lymph % (Auto) [place] % (Auto) Eos % (Auto) Baso % (Auto) Lymph # Tate # Eos # Baso # Seg Neutrophils % Seg Neutrophils # PT INR APTT Sodium Potassium Chloride Carbon Dioxide Anion Gap BUN Creatinine Estimated GFR BUN/Creatinine Ratio Glucose POC Glucose 287 H Calcium Magnesium Total Bilirubin AST ALT Alkaline Phosphatase Ammonia Total Creatine Kinase CK-MB (CK-2) CK-MB (CK-2) Rel Index Troponin T Total Protein Albumin Albumin/Globulin Ratio Triglycerides Cholesterol LDL Cholesterol Direct HDL Cholesterol Cholesterol/HDL Ratio Urine Color Urine Turbidity Urine pH Ur Specific [place] Urine Protein Urine Glucose (UA) Urine Ketones Urine Blood Urine Nitrite Urine Bilirubin Urine Urobilinogen Ur Leukocyte Esterase Urine WBC (Auto) Urine RBC (Auto) Salicylates < 0.3 L Urine Opiates Screen Urine Methadone Screen Acetaminophen < 5.0 L Ur Barbiturates Screen Ur Phencyclidine Scrn Ur Amphetamines Screen U Benzodiazepines Scrn Urine Cocaine Screen U Marijuana (THC) Screen Drugs of Abuse Note Plasma/Serum Alcohol 11/12/18 11/12/18 11/13/18 20:32 20:32 07:48 WBC 10.6 RBC 3.34 L Hgb 10.4 L Hct 30.5 L MCV 91 MCH 31 MCHC 34 RDW 15.2 Plt Count 179 Lymph % (Auto) 9.3 L Tate % (Auto) 7.4 H Eos % (Auto) 0.0 Baso % (Auto) 0.1 Lymph # 1.0 L Tate # 0.8 Eos # 0.0 Baso # 0.0 Seg Neutrophils % 83.2 H Seg Neutrophils # 8.8 H PT INR APTT Sodium Potassium Chloride Carbon Dioxide Anion Gap BUN Creatinine Estimated GFR BUN/Creatinine Ratio Glucose POC Glucose Calcium Magnesium Total Bilirubin AST ALT Alkaline Phosphatase Ammonia Total Creatine Kinase CK-MB (CK-2) CK-MB (CK-2) Rel Index Troponin T Total Protein Albumin Albumin/Globulin Ratio Triglycerides Cholesterol LDL Cholesterol Direct HDL Cholesterol Cholesterol/HDL Ratio Urine Color Yellow Urine Turbidity Clear Urine pH 5.0 Ur Specific [place] 1.017 Urine Protein 30 mg/dl Urine Glucose (UA) >=500 Urine Ketones Neg Urine Blood Mod Urine Nitrite Neg Urine Bilirubin Neg Urine Urobilinogen < 2.0 Ur Leukocyte Esterase Neg Urine WBC (Auto) < 1.0 Urine RBC (Auto) 2.0 Salicylates Urine Opiates Screen Presumptive negative Urine Methadone Screen Presumptive negative Acetaminophen Ur Barbiturates Screen Presumptive negative Ur Phencyclidine Scrn Presumptive negative Ur Amphetamines Screen Presumptive negative U Benzodiazepines Scrn Presumptive negative Urine Cocaine Screen Presumptive negative U Marijuana (THC) Screen Presumptive negative Drugs of Abuse Note Disclamer Plasma/Serum Alcohol 11/13/18 11/13/18 07:48 07:52 WBC RBC Hgb Hct MCV MCH MCHC RDW Plt Count Lymph % (Auto) Tate % (Auto) Eos % (Auto) Baso % (Auto) Lymph # Tate # Eos # Baso # Seg Neutrophils % Seg Neutrophils # PT INR APTT Sodium 136 L Potassium 4.2 Chloride 100.5 Carbon Dioxide 20 L D Anion Gap 20 BUN 47 H Creatinine 2.6 H Estimated GFR 29 BUN/Creatinine Ratio 18 Glucose 361 H POC Glucose Calcium 8.6 Magnesium Total Bilirubin AST ALT Alkaline Phosphatase Ammonia Total Creatine Kinase 1331 H CK-MB (CK-2) 19.1 H CK-MB (CK-2) Rel Index 1.4 Troponin T 0.070 H Total Protein Albumin Albumin/Globulin Ratio Triglycerides Cholesterol LDL Cholesterol Direct HDL Cholesterol Cholesterol/HDL Ratio Urine Color Urine Turbidity Urine pH Ur Specific [place] Urine Protein Urine Glucose (UA) Urine Ketones Urine Blood Urine Nitrite Urine Bilirubin Urine Urobilinogen Ur Leukocyte Esterase Urine WBC (Auto) Urine RBC (Auto) Salicylates Urine Opiates Screen Urine Methadone Screen Acetaminophen Ur Barbiturates Screen Ur Phencyclidine Scrn Ur Amphetamines Screen U Benzodiazepines Scrn Urine Cocaine Screen U Marijuana (THC) Screen Drugs of Abuse Note Plasma/Serum Alcohol Assessment and Plan 1.heme +stool 2.anemia -H/H 10.4/30.5 (H/H WNL on 11/08/18) -continue to monitor H/H and transfuse as needed -no active signs of GI bleeding per nursing-rectal by ED provider with brown heme + stool -etiology unclear (recent fall with pelvic fractures, however CT negative for retroperitoneal bleed) -discussed the option of an endoscopic evaluation with EGD/colonoscopy with patient to include purpose (r/o GI pathology such as malignancy vs other), risks, and benefits to which he is refusing, however I do not believe he is competent to make decision due to mental status. -no next of kin is listed in chart, will order consult for case management to help facility with family contact information for discussion of above procedures -given no overt signs of GI bleeding, okay to resume diet for now (renal diet) -iron studies in am -continue PPI and supportive care -will follow 3.acute on chronic renal insufficiency 4.pelvic fractures s/p fall 5.Afib 6.AAA
--- NOTE | 2018-11-13 12:17 | Ultrasound Report ---
ULTRASOUND RENAL INDICATION / CLINICAL INFORMATION: Acute kidney injury. Chronic kidney disease COMPARISON: None available. FINDINGS: RIGHT KIDNEY: Length = 9.8 cm. [normal > 9 cm] - Parenchymal Thickness = 1.2 cm. [normal > 1.5 cm] - Echogenicity: Increased - Hydronephrosis: None. - Cyst or mass: No significant abnormality. - Stones: None seen. LEFT KIDNEY: Length = 11.7 cm. [normal > 9 cm] - Parenchymal Thickness = 1.1 cm. [normal > 1.5 cm] - Echogenicity: Increased - Hydronephrosis: None. - Cyst or mass: No significant abnormality. - Stones: None seen. URINARY BLADDER: No significant abnormality. FREE FLUID: None. ADDITIONAL FINDINGS: None. IMPRESSION: Echogenic kidneys with diffuse cortical thinning suggestive of chronic renal parenchymal disease. Signer Name: Bernard Wallace Jr, MD Signed: 11/13/2018 12:12 PM Workstation Name: [id number]
--- NOTE | 2018-11-13 13:02 | Progress Note ---
Assessment and Plan Assessment and plan: GI bleed. GI consult. Acute on chronic renal insufficiency Pelvic fracture Abnormal cardiac enzymes A. fib Abdominal aortic aneurysm 3.4 cm History Interval history: 73-year-old male history of A. fib, CVA, chronic kidney disease, hypertension was brought to the emergency room for evaluation because of a fall Hospitalist Physical - Constitutional Vitals: Temp Pulse Resp BP Pulse Ox 98.3 F 80 20 121/52 100 11/13/18 11:22 11/13/18 11:25 11/13/18 11:22 11/13/18 11:22 11/13/18 11:22 General appearance: Present: no acute distress, well-nourished - EENT Eyes: Present: PERRL, EOM intact ENT: hearing intact, clear oral mucosa, dentition normal - Neck Neck: Present: supple, normal ROM - Respiratory Respiratory effort: normal Respiratory: bilateral: CTA - Cardiovascular Rhythm: regular Heart Sounds: Present: S1 & S2. Absent: gallop, rub - Extremities Extremities: no ischemia, No edema, Full ROM - Abdominal General gastrointestinal: soft, non-tender, non-distended, normal bowel sounds - Integumentary Integumentary: Present: clear, warm, dry - Neurologic Neurologic: CNII-XII intact, moves all extremities Results - Labs CBC & Chem 7: 11/13/18 07:48 11/13/18 07:48 Labs: Laboratory Last Values WBC 10.6 K/mm3 (4.5-11.0) 11/13/18 07:48 RBC 3.34 M/mm3 (3.65-5.03) L 11/13/18 07:48 Hgb 10.4 gm/dl (11.8-15.2) L 11/13/18 07:48 Hct 30.5 % (35.5-45.6) L 11/13/18 07:48 MCV 91 fl (84-94) 11/13/18 07:48 MCH 31 pg (28-32) 11/13/18 07:48 MCHC 34 % (32-34) 11/13/18 07:48 RDW 15.2 % (13.2-15.2) 11/13/18 07:48 Plt Count 179 K/mm3 (140-440) 11/13/18 07:48 Lymph % (Auto) 9.3 % (13.4-35.0) L 11/13/18 07:48 [place] % (Auto) 7.4 % (0.0-7.3) H 11/13/18 07:48 Eos % (Auto) 0.0 % (0.0-4.3) 11/13/18 07:48 Baso % (Auto) 0.1 % (0.0-1.8) 11/13/18 07:48 Lymph # 1.0 K/mm3 (1.2-5.4) L 11/13/18 07:48 [place] # 0.8 K/mm3 (0.0-0.8) 11/13/18 07:48 Eos # 0.0 K/mm3 (0.0-0.4) 11/13/18 07:48 Baso # 0.0 K/mm3 (0.0-0.1) 11/13/18 07:48 Seg Neutrophils % 83.2 % (40.0-70.0) H 11/13/18 07:48 Seg Neutrophils # 8.8 K/mm3 (1.8-7.7) H 11/13/18 07:48 PT 24.9 Sec. (12.2-14.9) H 11/12/18 19:28 INR 2.31 (0.87-1.13) H 11/12/18 19:28 APTT 28.1 Sec. (24.2-36.6) 11/12/18 19:28 Sodium 136 mmol/L (137-145) L 11/13/18 07:48 Potassium 4.2 mmol/L (3.6-5.0) 11/13/18 07:48 Chloride 100.5 mmol/L (98-107) 11/13/18 07:48 Carbon Dioxide 20 mmol/L (22-30) L D 11/13/18 07:48 20 mmol/L 11/13/18 07:48 BUN 47 mg/dL (9-20) H 11/13/18 07:48 2.6 mg/dL (0.8-1.5) H 11/13/18 07:48 Estimated GFR 29 ml/min 11/13/18 07:48 18 % 11/13/18 07:48 Glucose 361 mg/dL (75-100) H 11/13/18 07:48 POC Glucose 287 (70-105) H 11/12/18 20:18 7.1 mg/dL (3.5-7.6) 11/13/18 10:40 Calcium 8.6 mg/dL (8.4-10.2) 11/13/18 07:48 Magnesium 2.80 mg/dL (1.7-2.3) H 11/12/18 19:28 1.70 mg/dL (0.1-1.2) H 11/12/18 19:28 AST 46 units/L (5-40) H 11/12/18 19:28 ALT 52 units/L (7-56) 11/12/18 19:28 95 units/L (35-129) 11/12/18 19:28 37.0 umol/L (25-60) 11/12/18 19:28 1331 units/L (55-170) H 11/13/18 07:52 CK-MB (CK-2) 19.1 ng/mL (0.0-4.0) H 11/13/18 07:52 CK-MB (CK-2) Rel Index 1.4 (0-4) 11/13/18 07:52 0.070 ng/mL (0.00-0.029) H 11/13/18 07:52 7.2 g/dL (6.3-8.2) 11/12/18 19:28 3.3 g/dL (3.9-5) L 11/12/18 19:28 0.8 % 11/12/18 19:28 Triglycerides 95 mg/dL (2-149) 11/12/18 19:28 Cholesterol 103 mg/dL (50-199) 11/12/18 19:28 58 mg/dL (50-130) 11/12/18 19:28 44 mg/dL (40-59) 11/12/18 19:28 2.34 % 11/12/18 19:28 Yellow (Yellow) 11/12/18 20:32 Clear (Clear) 11/12/18 20:32 5.0 (5.0-7.0) 11/12/18 20:32 Ur Specific [place] 1.017 (1.003-1.030) 11/12/18 20:32 30 mg/dl mg/dL (Negative) 11/12/18 20:32 >=500 mg/dL (Negative) 11/12/18 20:32 Neg mg/dL (Negative) 11/12/18 20:32 Mod (Negative) 11/12/18 20:32 Neg (Negative) 11/12/18 20:32 Neg (Negative) 11/12/18 20:32 < 2.0 mg/dL (<2.0) 11/12/18 20:32 Ur Leukocyte Esterase Neg (Negative) 11/12/18 20:32 < 1.0 /HPF (0.0-6.0) 11/12/18 20:32 2.0 /HPF (0.0-6.0) 11/12/18 20:32 Salicylates < 0.3 mg/dL (2.8-20.0) L 11/12/18 19:28 Presumptive negative 11/12/18 20:32 Presumptive negative 11/12/18 20:32 Acetaminophen < 5.0 ug/mL (10.0-30.0) L 11/12/18 19:28 Ur Barbiturates Screen Presumptive negative 11/12/18 20:32 Ur Phencyclidine Scrn Presumptive negative 11/12/18 20:32 Ur Amphetamines Screen Presumptive negative 11/12/18 20:32 U Benzodiazepines Scrn Presumptive negative 11/12/18 20:32 Presumptive negative 11/12/18 20:32 U Marijuana (THC) Screen Presumptive negative 11/12/18 20:32 Disclamer 11/12/18 20:32 Plasma/Serum Alcohol < 0.01 % (0-0.07) 11/12/18 19:28 Active Medications - Current Medications Current Medications: Generic Name Dose Route Start Last Admin Trade Name Freq PRN Reason Stop Dose Admin Acetaminophen 650 mg 11/13/18 00:50 Tylenol PO Q4H PRN Pain MILD(1-3)/Fever >100.5/CORTES Sodium Chloride 1,000 mls @ 75 mls/hr 11/13/18 01:00 Nacl 0.45% 1000 Ml IV DIRECT EMERSON Sodium Bicarbonate 150 meq/ 1,150 mls @ 75 mls/hr 11/13/18 10:00 11/13/18 11:01 Sterile Water IV 75 mls/hr DIRECT EMERSON Administration Ondansetron HCl 4 mg 08/06/19 00:50 Zofran IV Q4H PRN Nausea And Vomiting Pantoprazole Sodium 40 mg 11/13/18 00:52 11/13/18 11:02 Protonix IV 40 mg BID EMERSON Administration Sodium Chloride 10 ml 11/13/18 10:00 11/13/18 11:02 Sodium Chloride Flush Syringe 10 Ml IV 10 ml BID EMERSON Administration Sodium Chloride 10 ml 11/13/18 00:50 Sodium Chloride Flush Syringe 10 Ml IV PRN PRN LINE FLUSH Nutrition/Malnutrition Assess - Dietary Evaluation Nutrition/Malnutrition Findings: Nutrition Notes Start: 11/13/18 12:07 Freq: Status: Active Protocol: Document 11/13/18 12:07 LP (Rec: 11/13/18 12:13 LP [id number]) Nutrition Notes 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 Pt states eating better now. Consumed 50% of meal this AM. 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 No Is Patient Ambulatory and/or Out of Bed No REE-([facility]-confined to bed) 1952.400 Calculation Used for Recommendations [facility] Additional Notes Protein needs are 84-101g (1-1 .2g/kg) Fluid needs are 1ml/kcal Nutrition Intervention Change Diet Order: Renal consistent CHO Add Supplement/Snack (indicate name/kcal Vanilla Nepro daily /protein ) Provides kCal: 425 Provides Protein (gm) 25 Goal #1 Meet at least 80% of kcal and protein needs Anticipated Discharge Needs: renal consistent CHO Follow-Up By: 11/15/18 Additional Comments Follow for intakes
--- NOTE | 2018-11-13 13:50 | Progress Note ---
Assessment and Plan Assessment and plan: GI bleed. GI consult. Acute on chronic renal insufficiency. Nephrology consultation. Pelvic fracture. Ortho consultation. Abnormal cardiac enzymes. No reports of chest pain. Etiology likely secondary to renal insufficiency. Mild rhabdomyolysis. Continue IV fluids. A. fib. Rate currently controlled. Abdominal aortic aneurysm 3.4 cm. Outpatient vascular follow-up. History Interval history: 73-year-old male history of A. fib, CVA, chronic kidney disease, hypertension was brought to the emergency room for evaluation because of a fall Hospitalist Physical - Constitutional Vitals: Temp Pulse Resp BP Pulse Ox 98.3 F 80 20 121/52 100 11/13/18 11:22 11/13/18 11:25 11/13/18 11:22 11/13/18 11:22 11/13/18 11:22 General appearance: Present: no acute distress, well-nourished - EENT Eyes: Present: PERRL, EOM intact ENT: hearing intact, clear oral mucosa, dentition normal - Neck Neck: Present: supple, normal ROM - Respiratory Respiratory effort: normal Respiratory: bilateral: CTA - Cardiovascular Rhythm: regular Heart Sounds: Present: S1 & S2. Absent: gallop, rub - Extremities Extremities: no ischemia, No edema, Full ROM - Abdominal General gastrointestinal: soft, non-tender, non-distended, normal bowel sounds - Integumentary Integumentary: Present: clear, warm, dry - Neurologic Neurologic: CNII-XII intact, moves all extremities Results - Labs CBC & Chem 7: 11/13/18 07:48 11/13/18 07:48 Labs: Laboratory Last Values WBC 10.6 K/mm3 (4.5-11.0) 11/13/18 07:48 RBC 3.34 M/mm3 (3.65-5.03) L 11/13/18 07:48 Hgb 10.4 gm/dl (11.8-15.2) L 11/13/18 07:48 Hct 30.5 % (35.5-45.6) L 11/13/18 07:48 MCV 91 fl (84-94) 11/13/18 07:48 MCH 31 pg (28-32) 11/13/18 07:48 MCHC 34 % (32-34) 11/13/18 07:48 RDW 15.2 % (13.2-15.2) 11/13/18 07:48 Plt Count 179 K/mm3 (140-440) 11/13/18 07:48 Lymph % (Auto) 9.3 % (13.4-35.0) L 11/13/18 07:48 [place] % (Auto) 7.4 % (0.0-7.3) H 11/13/18 07:48 Eos % (Auto) 0.0 % (0.0-4.3) 11/13/18 07:48 Baso % (Auto) 0.1 % (0.0-1.8) 11/13/18 07:48 Lymph # 1.0 K/mm3 (1.2-5.4) L 11/13/18 07:48 [place] # 0.8 K/mm3 (0.0-0.8) 11/13/18 07:48 Eos # 0.0 K/mm3 (0.0-0.4) 11/13/18 07:48 Baso # 0.0 K/mm3 (0.0-0.1) 11/13/18 07:48 Seg Neutrophils % 83.2 % (40.0-70.0) H 11/13/18 07:48 Seg Neutrophils # 8.8 K/mm3 (1.8-7.7) H 11/13/18 07:48 PT 24.9 Sec. (12.2-14.9) H 11/12/18 19:28 INR 2.31 (0.87-1.13) H 11/12/18 19:28 APTT 28.1 Sec. (24.2-36.6) 11/12/18 19:28 Sodium 136 mmol/L (137-145) L 11/13/18 07:48 Potassium 4.2 mmol/L (3.6-5.0) 11/13/18 07:48 Chloride 100.5 mmol/L (98-107) 11/13/18 07:48 Carbon Dioxide 20 mmol/L (22-30) L D 11/13/18 07:48 20 mmol/L 11/13/18 07:48 BUN 47 mg/dL (9-20) H 11/13/18 07:48 2.6 mg/dL (0.8-1.5) H 11/13/18 07:48 Estimated GFR 29 ml/min 11/13/18 07:48 18 % 11/13/18 07:48 Glucose 361 mg/dL (75-100) H 11/13/18 07:48 POC Glucose 287 (70-105) H 11/12/18 20:18 321 Mosm/kg 11/13/18 10:40 7.1 mg/dL (3.5-7.6) 11/13/18 10:40 Calcium 8.6 mg/dL (8.4-10.2) 11/13/18 07:48 Magnesium 2.80 mg/dL (1.7-2.3) H 11/12/18 19:28 1.70 mg/dL (0.1-1.2) H 11/12/18 19:28 AST 46 units/L (5-40) H 11/12/18 19:28 ALT 52 units/L (7-56) 11/12/18 19:28 95 units/L (35-129) 11/12/18 19:28 37.0 umol/L (25-60) 11/12/18 19:28 1331 units/L (55-170) H 11/13/18 07:52 CK-MB (CK-2) 19.1 ng/mL (0.0-4.0) H 11/13/18 07:52 CK-MB (CK-2) Rel Index 1.4 (0-4) 11/13/18 07:52 0.070 ng/mL (0.00-0.029) H 11/13/18 07:52 7.2 g/dL (6.3-8.2) 11/12/18 19:28 3.3 g/dL (3.9-5) L 11/12/18 19:28 0.8 % 11/12/18 19:28 Triglycerides 95 mg/dL (2-149) 11/12/18 19:28 Cholesterol 103 mg/dL (50-199) 11/12/18 19:28 58 mg/dL (50-130) 11/12/18 19:28 44 mg/dL (40-59) 11/12/18 19:28 2.34 % 11/12/18 19:28 Yellow (Yellow) 11/12/18 20:32 Clear (Clear) 11/12/18 20:32 5.0 (5.0-7.0) 11/12/18 20:32 Ur Specific [place] 1.017 (1.003-1.030) 11/12/18 20:32 30 mg/dl mg/dL (Negative) 11/12/18 20:32 >=500 mg/dL (Negative) 11/12/18 20:32 Neg mg/dL (Negative) 11/12/18 20:32 Mod (Negative) 11/12/18 20:32 Neg (Negative) 11/12/18 20:32 Neg (Negative) 11/12/18 20:32 < 2.0 mg/dL (<2.0) 11/12/18 20:32 Ur Leukocyte Esterase Neg (Negative) 11/12/18 20:32 < 1.0 /HPF (0.0-6.0) 11/12/18 20:32 2.0 /HPF (0.0-6.0) 11/12/18 20:32 Salicylates < 0.3 mg/dL (2.8-20.0) L 11/12/18 19:28 Presumptive negative 11/12/18 20:32 Presumptive negative 11/12/18 20:32 Acetaminophen < 5.0 ug/mL (10.0-30.0) L 11/12/18 19:28 Ur Barbiturates Screen Presumptive negative 11/12/18 20:32 Ur Phencyclidine Scrn Presumptive negative 11/12/18 20:32 Ur Amphetamines Screen Presumptive negative 11/12/18 20:32 U Benzodiazepines Scrn Presumptive negative 11/12/18 20:32 Presumptive negative 11/12/18 20:32 U Marijuana (THC) Screen Presumptive negative 11/12/18 20:32 Disclamer 11/12/18 20:32 Plasma/Serum Alcohol < 0.01 % (0-0.07) 11/12/18 19:28 Active Medications - Current Medications Current Medications: Generic Name Dose Route Start Last Admin Trade Name Freq PRN Reason Stop Dose Admin Acetaminophen 650 mg 11/13/18 00:50 Tylenol PO Q4H PRN Pain MILD(1-3)/Fever >100.5/CORTES Sodium Chloride 1,000 mls @ 75 mls/hr 11/13/18 01:00 Nacl 0.45% 1000 Ml IV DIRECT EMERSON Sodium Bicarbonate 150 meq/ 1,150 mls @ 75 mls/hr 11/13/18 10:00 11/13/18 11:01 Sterile Water IV 75 mls/hr DIRECT EMERSON Administration Ondansetron HCl 4 mg 11/13/18 00:50 Zofran IV Q4H PRN Nausea And Vomiting Pantoprazole Sodium 40 mg 11/13/18 00:52 11/13/18 11:02 Protonix IV 40 mg BID EMERSON Administration Sodium Chloride 10 ml 11/13/18 10:00 11/13/18 11:02 Sodium Chloride Flush Syringe 10 Ml IV 10 ml BID EMERSON Administration Sodium Chloride 10 ml 11/13/18 00:50 Sodium Chloride Flush Syringe 10 Ml IV PRN PRN LINE FLUSH Nutrition/Malnutrition Assess - Dietary Evaluation Nutrition/Malnutrition Findings: Nutrition Notes Start: 11/13/18 12:07 Freq: Status: Active Protocol: Document 11/13/18 12:07 LP (Rec: 11/13/18 12:13 LP [id number]) Nutrition Notes 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 Pt states eating better now. Consumed 50% of meal this AM. 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 No Is Patient Ambulatory and/or Out of Bed No REE-([facility]-confined to bed) 1952.400 Calculation Used for Recommendations [facility] Additional Notes Protein needs are 84-101g (1-1 .2g/kg) Fluid needs are 1ml/kcal Nutrition Intervention Change Diet Order: Renal consistent CHO Add Supplement/Snack (indicate name/kcal Vanilla Nepro daily /protein ) Provides kCal: 425 Provides Protein (gm) 25 Goal #1 Meet at least 80% of kcal and protein needs Anticipated Discharge Needs: renal consistent CHO Follow-Up By: 11/15/18 Additional Comments Follow for intakes
[2018-11-13 19:58] LABS: Creatinine,Urine 101.2 mg/dL (0.1-20.0)
[2018-11-13 21:35] LABS: Hematocrit 25.8 % (35.5-45.6); Hemoglobin 8.9 gm/dl (11.8-15.2)
[2018-11-14 07:50] LABS: Iron 36 ug/dL (49-181); Total Iron Binding Capacity 153 mcg/dL (250-450)
[2018-11-14] MEDS: NACL 0.45% 1000 ML 1,000 ML IV SCH (08:13)
[2018-11-14 09:39] LABS: Hematocrit 24.9 % (35.5-45.6); Hemoglobin 8.8 gm/dl (11.8-15.2)
[2018-11-14] MEDS: PROTONIX IV SCH ×2 (10:51→21:21)
[2018-11-14] MEDS: SODIUM CHLORIDE FLUSH SYRINGE 10 ML IV SCH ×2 (10:51→21:22)
--- NOTE | 2018-11-14 13:27 | Progress Note ---
Assessment and Plan Assessment and plan: GI bleed. GI consulted. Acute on chronic renal insufficiency. Nephrology following Pelvic fracture. Ortho consultation pending. Abnormal cardiac enzymes. No reports of chest pain. Etiology likely secondary to renal insufficiency. Mild rhabdomyolysis. Continue IV fluids. F/U CK A. fib. Rate currently controlled. Abdominal aortic aneurysm 3.4 cm. Outpatient vascular follow-up. History Interval history: 73-year-old male history of A. fib, CVA, chronic kidney disease, hypertension was brought to the emergency room for evaluation because of a fall Hospitalist Physical - Constitutional Vitals: Temp Pulse Resp BP Pulse Ox 97.5 F L 78 18 92/69 98 11/14/18 08:21 11/14/18 10:00 11/14/18 10:00 11/14/18 08:21 11/14/18 10:00 General appearance: Present: no acute distress, well-nourished - EENT Eyes: Present: PERRL, EOM intact ENT: hearing intact, clear oral mucosa, dentition normal - Neck Neck: Present: supple, normal ROM - Respiratory Respiratory effort: normal Respiratory: bilateral: CTA - Cardiovascular Rhythm: regular Heart Sounds: Present: S1 & S2. Absent: gallop, rub - Extremities Extremities: no ischemia, No edema, Full ROM - Abdominal General gastrointestinal: soft, non-tender, non-distended, normal bowel sounds - Integumentary Integumentary: Present: clear, warm, dry - Neurologic Neurologic: CNII-XII intact, moves all extremities Results - Labs CBC & Chem 7: 11/14/18 09:29 11/13/18 07:48 Labs: Laboratory Last Values WBC 10.6 K/mm3 (4.5-11.0) 11/13/18 07:48 RBC 3.34 M/mm3 (3.65-5.03) L 11/13/18 07:48 Hgb 8.8 gm/dl (11.8-15.2) L 11/14/18 09:29 Hct 24.9 % (35.5-45.6) L 11/14/18 09:29 MCV 91 fl (84-94) 11/13/18 07:48 MCH 31 pg (28-32) 11/13/18 07:48 MCHC 34 % (32-34) 11/13/18 07:48 RDW 15.2 % (13.2-15.2) 11/13/18 07:48 Plt Count 179 K/mm3 (140-440) 11/13/18 07:48 Lymph % (Auto) 9.3 % (13.4-35.0) L 11/13/18 07:48 [place] % (Auto) 7.4 % (0.0-7.3) H 11/13/18 07:48 Eos % (Auto) 0.0 % (0.0-4.3) 11/13/18 07:48 Baso % (Auto) 0.1 % (0.0-1.8) 11/13/18 07:48 Lymph # 1.0 K/mm3 (1.2-5.4) L 11/13/18 07:48 [place] # 0.8 K/mm3 (0.0-0.8) 11/13/18 07:48 Eos # 0.0 K/mm3 (0.0-0.4) 11/13/18 07:48 Baso # 0.0 K/mm3 (0.0-0.1) 11/13/18 07:48 Seg Neutrophils % 83.2 % (40.0-70.0) H 11/13/18 07:48 Seg Neutrophils # 8.8 K/mm3 (1.8-7.7) H 11/13/18 07:48 PT 24.9 Sec. (12.2-14.9) H 11/12/18 19:28 INR 2.31 (0.87-1.13) H 11/12/18 19:28 APTT 28.1 Sec. (24.2-36.6) 11/12/18 19:28 Sodium 136 mmol/L (137-145) L 11/13/18 07:48 Potassium 4.2 mmol/L (3.6-5.0) 11/13/18 07:48 Chloride 100.5 mmol/L (98-107) 11/13/18 07:48 Carbon Dioxide 20 mmol/L (22-30) L D 11/13/18 07:48 20 mmol/L 11/13/18 07:48 BUN 47 mg/dL (9-20) H 11/13/18 07:48 2.6 mg/dL (0.8-1.5) H 11/13/18 07:48 Estimated GFR 29 ml/min 11/13/18 07:48 18 % 11/13/18 07:48 Glucose 361 mg/dL (75-100) H 11/13/18 07:48 POC Glucose 287 (70-105) H 11/12/18 20:18 321 Mosm/kg 11/13/18 10:40 7.1 mg/dL (3.5-7.6) 11/13/18 10:40 Calcium 8.6 mg/dL (8.4-10.2) 11/13/18 07:48 Magnesium 2.80 mg/dL (1.7-2.3) H 11/12/18 19:28 Iron 36 ug/dL (49-181) L 11/14/18 05:50 TIBC 153 mcg/dL (250-450) L 11/14/18 05:50 896.0 ng/mL (13.0-400.0) H 11/14/18 05:50 1.70 mg/dL (0.1-1.2) H 11/12/18 19:28 AST 46 units/L (5-40) H 11/12/18 19:28 ALT 52 units/L (7-56) 11/12/18 19:28 95 units/L (35-129) 11/12/18 19:28 37.0 umol/L (25-60) 11/12/18 19:28 1381 units/L (55-170) H 11/13/18 14:54 CK-MB (CK-2) 17.0 ng/mL (0.0-4.0) H 11/13/18 14:54 CK-MB (CK-2) Rel Index 1.2 (0-4) 11/13/18 14:54 0.049 ng/mL (0.00-0.029) H D 11/13/18 14:54 7.2 g/dL (6.3-8.2) 11/12/18 19:28 3.3 g/dL (3.9-5) L 11/12/18 19:28 0.8 % 11/12/18 19:28 Triglycerides 95 mg/dL (2-149) 11/12/18 19:28 Cholesterol 103 mg/dL (50-199) 11/12/18 19:28 58 mg/dL (50-130) 11/12/18 19:28 44 mg/dL (40-59) 11/12/18 19:28 2.34 % 11/12/18 19:28 Yellow (Yellow) 11/12/18 20:32 Clear (Clear) 11/12/18 20:32 5.0 (5.0-7.0) 11/12/18 20:32 Ur Specific [place] 1.017 (1.003-1.030) 11/12/18 20:32 30 mg/dl mg/dL (Negative) 11/12/18 20:32 >=500 mg/dL (Negative) 11/12/18 20:32 Neg mg/dL (Negative) 11/12/18 20:32 Mod (Negative) 11/12/18 20:32 Neg (Negative) 11/12/18 20:32 Neg (Negative) 11/12/18 20:32 < 2.0 mg/dL (<2.0) 11/12/18 20:32 Ur Leukocyte Esterase Neg (Negative) 11/12/18 20:32 < 1.0 /HPF (0.0-6.0) 11/12/18 20:32 2.0 /HPF (0.0-6.0) 11/12/18 20:32 101.2 mg/dL (0.1-20.0) H 11/13/18 19:00 28 mmol/L 11/13/18 19:00 36 mg/dL (5-11.8) H 11/13/18 19:00 Salicylates < 0.3 mg/dL (2.8-20.0) L 11/12/18 19:28 Presumptive negative 11/12/18 20:32 Presumptive negative 11/12/18 20:32 Acetaminophen < 5.0 ug/mL (10.0-30.0) L 11/12/18 19:28 Ur Barbiturates Screen Presumptive negative 11/12/18 20:32 Ur Phencyclidine Scrn Presumptive negative 11/12/18 20:32 Ur Amphetamines Screen Presumptive negative 11/12/18 20:32 U Benzodiazepines Scrn Presumptive negative 11/12/18 20:32 Presumptive negative 11/12/18 20:32 U Marijuana (THC) Screen Presumptive negative 11/12/18 20:32 Disclamer 11/12/18 20:32 Plasma/Serum Alcohol < 0.01 % (0-0.07) 11/12/18 19:28 Active Medications - Current Medications Current Medications: Generic Name Dose Route Start Last Admin Trade Name Freq PRN Reason Stop Dose Admin Acetaminophen 650 mg 11/13/18 00:50 Tylenol PO Q4H PRN Pain MILD(1-3)/Fever >100.5/CORTES Sodium Chloride 1,000 mls @ 75 mls/hr 11/13/18 01:00 11/14/18 08:13 Nacl 0.45% 1000 Ml IV 75 mls/hr DIRECT EMERSON Administration Sodium Bicarbonate 150 meq/ 1,150 mls @ 75 mls/hr 11/13/18 10:00 11/13/18 11:01 Sterile Water IV 75 mls/hr DIRECT EMERSON Administration Ondansetron HCl 4 mg 11/13/18 00:50 Zofran IV Q4H PRN Nausea And Vomiting Pantoprazole Sodium 40 mg 11/13/18 00:52 11/14/18 10:51 Protonix IV 40 mg BID EMERSON Administration Sodium Chloride 10 ml 11/13/18 10:00 11/14/18 10:51 Sodium Chloride Flush Syringe 10 Ml IV 10 ml BID EMERSON Administration Sodium Chloride 10 ml 11/13/18 00:50 Sodium Chloride Flush Syringe 10 Ml IV PRN PRN LINE FLUSH Nutrition/Malnutrition Assess - Dietary Evaluation Nutrition/Malnutrition Findings: Nutrition Notes Start: 11/13/18 12:07 Freq: Status: Active Protocol: Document 11/13/18 12:07 LP (Rec: 11/13/18 12:13 LP [id number]) Nutrition Notes 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 Pt states eating better now. Consumed 50% of meal this AM. 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 Burn Absent Trauma Absent #1 Nutrition Diagnosis Inadequate oral intake Etiology decreased appetite [employer] PIL[employer] As Evidenced by Signs and Symptoms Pt states not eating well [employer]IL[employer] and currently consuming 50% of meals Is patient on ventilator? No Is Patient Ambulatory and/or Out of Bed No REE-([facility]-confined to bed) 195.400 Calculation Used for Recommendations [facility] Additional Notes Protein needs are 84-101g (1-1 .2g/kg) Fluid needs are 1ml/kcal Nutrition Intervention Change Diet Order: Renal consistent CHO Add Supplement/Snack (indicate name/kcal Vanilla Nepro daily /protein ) Provides kCal: 425 Provides Protein (gm) 25 Goal #1 Meet at least 80% of kcal and protein needs Anticipated Discharge Needs: renal consistent CHO Follow-Up By: 11/15/18 Additional Comments Follow for intakes
--- NOTE | 2018-11-14 13:32 | Gastroenterology Progress Note ---
Assessment and Plan 1.heme +stool 2.anemia -H/H 8.8/24.9-stable (H/H WNL on 11/08/18) -continue to monitor H/H and transfuse as needed -iron 36 -no active signs of GI bleeding overnight or this am per nursing -etiology unclear (recent fall with pelvic fractures, however CT negative for retroperitoneal bleed) -discussed the option of an endoscopic evaluation with EGD/colonoscopy with patient to include purpose (r/o GI pathology such as malignancy vs other), risks, and benefits to which he is refusing, however I do not believe he is competent to make decision due to mental status. -spoke with caregiver (Vera Rucker) at current [facility]. She reports patient having an ex- and ex-caregiver that is involved in his care but neither person has POA that she is aware of. (states patient may also have a brother but she has no contact information for him). -will discuss with Dr. Ring regarding proceeding with EGD/colonoscopy as medical nesecityl based on progress -continue PPI and supportive care -further recommendations to follow 3.acute on chronic renal insufficiency 4.pelvic fractures s/p fall 5.Afib 6.AAA Subjective Date of service: 11/14/18 Principal diagnosis: occult +stool, anemia Interval history: No active signs of bleeding overnight or this am per nursing. Objective - Constitutional Vitals: Temp Pulse Resp BP Pulse Ox 97.5 F L 78 18 92/69 98 11/14/18 08:21 11/14/18 10:00 11/14/18 10:00 11/14/18 08:21 11/14/18 10:00 General appearance: no acute distress, other (confused) - Respiratory Respiratory effort: normal - Cardiovascular Rhythm: regular - Gastrointestinal General gastrointestinal: Present: soft, non-tender, non-distended, normal bowel sounds - Labs CBC & Chem 7: 11/14/18 09:29 11/13/18 07:48 Labs: Laboratory Results - last 24 hr 11/13/18 11/13/18 11/13/18 10:40 14:54 19:00 Hgb Hct Osmolality 321 Iron TIBC Ferritin Total Creatine Kinase 1381 H CK-MB (CK-2) 17.0 H CK-MB (CK-2) Rel Index 1.2 Troponin T 0.049 H D Urine Creatinine 101.2 H Urine Sodium 28 Urine Total Protein 36 H 11/13/18 11/14/18 11/14/18 21:01 05:50 05:50 Hgb 8.9 L Hct 25.8 L Osmolality Iron 36 L TIBC 153 L Ferritin 896.0 H Total Creatine Kinase CK-MB (CK-2) CK-MB (CK-2) Rel Index Troponin T Urine Creatinine Urine Sodium Urine Total Protein 11/14/18 09:29 Hgb 8.8 L Hct 24.9 L Osmolality Iron TIBC Ferritin Total Creatine Kinase CK-MB (CK-2) CK-MB (CK-2) Rel Index Troponin T Urine Creatinine Urine Sodium Urine Total Protein
--- NOTE | 2018-11-14 13:41 | Progress Note ---
Subjective Principal diagnosis: occult +stool, anemia Interval history: Patient was seen today for follow-up of multiple renal related issues resting comfortably in bed Very poor historian Interdisciplinary notes that also reviewed Events of 24 hours vitals labs intake output medications were reviewed Past medical history: Reviewed Family history: Reviewed Social history: Reviewed Allergies: Reviewed Physical examination: Vitals: Reviewed HEENT: No pallor or icterus oral mucosa moist Neck: Supple no JVD no thyromegaly Chest: Bilateral clear to auscultation anteriorly Heart: Regular rate and rhythm S1-S2 heard no S3-S4 Abdomen: Soft nontender no voluntary guarding rigidity rebound Extremity: Dry skin less than 1+ peripheral edema Psychiatric: No evidence of agitation and aggression noted Dermatology: No petechial rashes Labs and x-rays: Reviewed from today Assessment and plan acute kidney injury: there is no indication for renal replacement therapy Hyponatremia to monitor and follow Baseline creatinine 1.9 early November 2018 GI bleed noted to have heme positive stools, pelvic fracture, abnormal cardiac enzyme, atrial fibrillation, abdominal aortic aneurysm: Being followed by primary team Continue with hydration and monitor renal function Low-grade rhabdomyolysis to monitor and follow Metabolic acidosis to monitor and follow We'll continue to follow and make recommendation for renal standpoint Objective - Vital Signs Vital signs: Vital Signs - 12hr 11/14/18 11/14/18 11/14/18 03:43 07:38 08:21 Temperature 98.0 F 97.5 F L Pulse Rate 67 Pulse Rate [ Apical] Pulse Rate [ From Monitor] Respiratory 18 18 Rate Blood Pressure 144/52 92/69 O2 Sat by Pulse 90 94 Oximetry 11/14/18 10:00 Temperature Pulse Rate Pulse Rate [ 80 Apical] Pulse Rate [ 78 From Monitor] Respiratory 18 Rate Blood Pressure O2 Sat by Pulse 98 Oximetry - Lab 11/14/18 09:29 11/13/18 07:48 Most recent lab results Calcium 8.6 mg/dL (8.4-10.2) 11/13/18 07:48 Magnesium 2.80 mg/dL (1.7-2.3) H 11/12/18 19:28 101.2 mg/dL (0.1-20.0) H 11/13/18 19:00 28 mmol/L 11/13/18 19:00 36 mg/dL (5-11.8) H 11/13/18 19:00 Medications & Allergies - Medications Allergies/Adverse Reactions: Allergies No Known Allergies Allergy (Verified 11/12/18 22:27) Active Medications: Generic Name Dose Route Start Last Admin Trade Name Maciej PRN Reason Stop Dose Admin Acetaminophen 650 mg 11/13/18 00:50 Tylenol PO Q4H PRN Pain MILD(1-3)/Fever >100.5/CORTES Sodium Chloride 1,000 mls @ 75 mls/hr 11/13/18 01:00 11/14/18 08:13 Nacl 0.45% 1000 Ml IV 75 mls/hr DIRECT EMERSON Administration Sodium Bicarbonate 150 meq/ 1,150 mls @ 75 mls/hr 11/13/18 10:00 11/13/18 11:01 Sterile Water IV 75 mls/hr DIRECT EMERSON Administration Ondansetron HCl 4 mg 11/13/18 00:50 Zofran IV Q4H PRN Nausea And Vomiting Pantoprazole Sodium 40 mg 11/13/18 00:52 11/14/18 10:51 Protonix IV 40 mg BID EMERSON Administration Sodium Chloride 10 ml 11/13/18 10:00 11/14/18 10:51 Sodium Chloride Flush Syringe 10 Ml IV 10 ml BID EMERSON Administration Sodium Chloride 10 ml 11/13/18 00:50 Sodium Chloride Flush Syringe 10 Ml IV PRN PRN LINE FLUSH
[2018-11-15 04:39] LABS: Basophils % (Auto) 0.3 % (0.0-1.8); Eosinophils # (Auto) 0.1 K/mm3 (0.0-0.4); Eosinophils % (Auto) 1.1 % (0.0-4.3); Hematocrit 26.5 % (35.5-45.6); Hemoglobin 9.4 gm/dl (11.8-15.2); Lymphocytes # (Auto) 1.2 K/mm3 (1.2-5.4); Lymphocytes % (Auto) 16.2 % (13.4-35.0); Mean Corpuscular HGB Conc 36 % (32-34); Mean Corpuscular Volume 89 fl (84-94); Monocytes # (Auto) 0.6 K/mm3 (0.0-0.8); Monocytes % (Auto) 8.3 % (0.0-7.3); Platelet Count 216 K/mm3 (140-440); Red Blood Count 2.97 M/mm3 (3.65-5.03)
[2018-11-15 04:59] LABS: Calcium 8.8 mg/dL (8.4-10.2)
[2018-11-15] MEDS: NACL 0.45% 1000 ML 1,000 ML IV SCH (05:54)
--- NOTE | 2018-11-15 09:07 | Progress Note ---
Subjective Principal diagnosis: occult +stool, anemia Interval history: Patient was seen today for follow-up of multiple renal related issues resting comfortably in bed Very poor historian Interdisciplinary notes that also reviewed Events of 24 hours vitals labs intake output medications were reviewed Past medical history: Reviewed Family history: Reviewed Social history: Reviewed Allergies: Reviewed Physical examination: Vitals: Reviewed HEENT: No pallor or icterus oral mucosa moist Neck: Supple no JVD no thyromegaly Chest: Bilateral clear to auscultation anteriorly Heart: Regular rate and rhythm S1-S2 heard no S3-S4 Abdomen: Soft nontender no voluntary guarding rigidity rebound Extremity: Dry skin less than 1+ peripheral edema Psychiatric: No evidence of agitation and aggression noted Dermatology: No petechial rashes Labs and x-rays: Reviewed from today Assessment and plan acute kidney injury: Improving renal function patient mostly appear to be prerenal creatinine is almost close to his baseline maintain hydration close monitoring of renal function Renal ultrasonogram shows diffusely echogenic kidneys/patient is prone to progression over time due to age and multiple comorbidities Upon discharge he will surely need to be followed up in the office, I risk for progression to ESRD Hyponatremia to monitor and follow Baseline creatinine 1.9 early November 2018 GI bleed noted to have heme positive stools, pelvic fracture, abnormal cardiac enzyme, atrial fibrillation, abdominal aortic aneurysm: Being followed by primary team Continue with hydration and monitor renal function Low-grade rhabdomyolysis to monitor and follow Metabolic acidosis to monitor and follow We'll continue to follow and make recommendation for renal standpoint Objective - Vital Signs Vital signs: Vital Signs - 12hr 11/14/18 11/14/18 11/14/18 22:00 22:23 23:32 Temperature 98.0 F Pulse Rate 80 81 Respiratory 20 Rate Blood Pressure 134/63 O2 Sat by Pulse 95 Oximetry 11/15/18 04:08 Temperature 98.0 F Pulse Rate 80 Respiratory 18 Rate Blood Pressure 162/59 O2 Sat by Pulse 94 Oximetry - Lab 11/15/18 04:16 11/15/18 04:16 Most recent lab results Calcium 8.8 mg/dL (8.4-10.2) 11/15/18 04:16 Magnesium 2.80 mg/dL (1.7-2.3) H 11/12/18 19:28 101.2 mg/dL (0.1-20.0) H 11/13/18 19:00 28 mmol/L 11/13/18 19:00 36 mg/dL (5-11.8) H 11/13/18 19:00 Medications & Allergies - Medications Allergies/Adverse Reactions: Allergies No Known Allergies Allergy (Verified 11/12/18 22:27) Active Medications: Generic Name Dose Route Start Last Admin Trade Name Freq PRN Reason Stop Dose Admin Acetaminophen 650 mg 11/13/18 00:50 Tylenol PO Q4H PRN Pain MILD(1-3)/Fever >100.5/CORTES Sodium Chloride 1,000 mls @ 75 mls/hr 11/13/18 01:00 11/15/18 05:54 Nacl 0.45% 1000 Ml IV 75 mls/hr DIRECT EMERSON Administration Sodium Bicarbonate 150 meq/ 1,150 mls @ 75 mls/hr 11/13/18 10:00 11/13/18 11:01 Sterile Water IV 75 mls/hr DIRECT EMERSON Administration Ondansetron HCl 4 mg 11/13/18 00:50 Zofran IV Q4H PRN Nausea And Vomiting Pantoprazole Sodium 40 mg 11/13/18 00:52 11/14/18 21:21 Protonix IV 40 mg BID EMERSON Administration Pantoprazole Sodium 40 mg 11/15/18 10:00 Protonix PO QDAY EMERSON Sodium Chloride 10 ml 11/13/18 10:00 11/14/18 21:22 Sodium Chloride Flush Syringe 10 Ml IV 10 ml BID EMERSON Administration Sodium Chloride 10 ml 11/13/18 00:50 Sodium Chloride Flush Syringe 10 Ml IV PRN PRN LINE FLUSH
[2018-11-15] MEDS: PROTONIX PO SCH (09:29)
[2018-11-15] MEDS: PROTONIX IV SCH (09:29)
[2018-11-15] MEDS: SODIUM CHLORIDE FLUSH SYRINGE 10 ML IV SCH ×2 (09:33→22:13)
[2018-11-15] MEDS ORDERED: GOLYTELY PO ONE (10:56)
--- NOTE | 2018-11-15 10:59 | Gastroenterology Progress Note ---
Assessment and Plan 1.heme +stool 2.anemia -H/H 9.4/26.5-trending up (H/H WNL on 11/08/18) -continue to monitor H/H and transfuse as needed -iron 36 -no active signs of GI bleeding overnight or this am per nursing -etiology unclear (recent fall with pelvic fractures, however CT negative for retroperitoneal bleed) -EGD/colonoscopy for further evaluation tomorrow (no POA or next to kin available per caregiver) -clear liquid diet today then NPO after MN -INR in am -continue PPI and supportive care -will follow 3.acute on chronic renal insufficiency 4.pelvic fractures s/p fall 5.Afib 6.AAA Subjective Date of service: 11/15/18 Principal diagnosis: occult +stool, anemia Interval history: No active signs of bleeding overnight or this am per nursing. Objective - Constitutional Vitals: Temp Pulse Resp BP Pulse Ox 97.7 F 89 16 146/64 98 11/15/18 09:13 11/15/18 09:13 11/15/18 09:13 11/15/18 09:13 11/15/18 09:13 General appearance: no acute distress - Respiratory Respiratory effort: normal - Cardiovascular Rhythm: regular - Gastrointestinal General gastrointestinal: Present: soft, non-tender, non-distended, normal bowel sounds - Labs CBC & Chem 7: 11/15/18 04:16 11/15/18 04:16 Labs: Laboratory Results - last 24 hr 11/15/18 11/15/18 04:16 04:16 WBC 7.3 RBC 2.97 L Hgb 9.4 L Hct 26.5 L MCV 89 MCH 32 MCHC 36 H RDW 15.0 Plt Count 216 Lymph % (Auto) 16.2 [place] % (Auto) 8.3 H Eos % (Auto) 1.1 Baso % (Auto) 0.3 Lymph # 1.2 [place] # 0.6 Eos # 0.1 Baso # 0.0 Seg Neutrophils % 74.1 H Seg Neutrophils # 5.4 Sodium 134 L Potassium 3.9 Chloride 97.5 L Carbon Dioxide 25 Anion Gap 15 BUN 34 H Creatinine 2.0 H Estimated GFR 40 BUN/Creatinine Ratio 17 Glucose 184 H Calcium 8.8 Total Creatine Kinase 1255 H
--- NOTE | 2018-11-15 11:43 | Progress Note ---
Assessment and Plan Assessment and plan: GI bleed. GI following. Patient with no active signs of GI bleeding overnight or this am per nursing. EGD/colonoscopy for further evaluation tomorrow, continue PPI Anemia. Continue to monitor H&H and transfuse for hemoglobin less than 7. Acute on chronic renal insufficiency. Nephrology following Pelvic fracture. Ortho consultation pending. Abnormal cardiac enzymes. No reports of chest pain. Etiology likely secondary to renal insufficiency. Mild rhabdomyolysis. Continue IV fluids. F/U CK A. fib. Rate currently controlled. Acute hypoxic respiratory failure. Continue O2 to maintain sats greater or 92%. Abdominal aortic aneurysm 3.4 cm. Outpatient vascular follow-up. History Interval history: 73-year-old male history of A. fib, CVA, chronic kidney disease, hypertension was brought to the emergency room for evaluation because of a fall Hospitalist Physical - Constitutional Vitals: Temp Pulse Resp BP Pulse Ox 97.7 F 89 16 146/64 98 11/15/18 09:13 11/15/18 09:13 11/15/18 09:13 11/15/18 09:13 11/15/18 09:13 General appearance: Present: no acute distress, well-nourished - EENT Eyes: Present: PERRL, EOM intact ENT: hearing intact, clear oral mucosa, dentition normal - Neck Neck: Present: supple, normal ROM - Respiratory Respiratory effort: normal Respiratory: bilateral: CTA - Cardiovascular Rhythm: regular Heart Sounds: Present: S1 & S2. Absent: gallop, rub - Extremities Extremities: no ischemia, No edema, Full ROM - Abdominal General gastrointestinal: soft, non-tender, non-distended, normal bowel sounds - Integumentary Integumentary: Present: clear, warm, dry - Neurologic Neurologic: CNII-XII intact, moves all extremities Results - Labs CBC & Chem 7: 11/15/18 04:16 11/15/18 04:16 Labs: Laboratory Last Values WBC 7.3 K/mm3 (4.5-11.0) 11/15/18 04:16 RBC 2.97 M/mm3 (3.65-5.03) L 11/15/18 04:16 Hgb 9.4 gm/dl (11.8-15.2) L 11/15/18 04:16 Hct 26.5 % (35.5-45.6) L 11/15/18 04:16 MCV 89 fl (84-94) 11/15/18 04:16 MCH 32 pg (28-32) 11/15/18 04:16 MCHC 36 % (32-34) H 11/15/18 04:16 RDW 15.0 % (13.2-15.2) 11/15/18 04:16 Plt Count 216 K/mm3 (140-440) 11/15/18 04:16 Lymph % (Auto) 16.2 % (13.4-35.0) 11/15/18 04:16 [place] % (Auto) 8.3 % (0.0-7.3) H 11/15/18 04:16 Eos % (Auto) 1.1 % (0.0-4.3) 11/15/18 04:16 Baso % (Auto) 0.3 % (0.0-1.8) 11/15/18 04:16 Lymph # 1.2 K/mm3 (1.2-5.4) 11/15/18 04:16 [place] # 0.6 K/mm3 (0.0-0.8) 11/15/18 04:16 Eos # 0.1 K/mm3 (0.0-0.4) 11/15/18 04:16 Baso # 0.0 K/mm3 (0.0-0.1) 11/15/18 04:16 Seg Neutrophils % 74.1 % (40.0-70.0) H 11/15/18 04:16 Seg Neutrophils # 5.4 K/mm3 (1.8-7.7) 11/15/18 04:16 PT 24.9 Sec. (12.2-14.9) H 11/12/18 19:28 INR 2.31 (0.87-1.13) H 11/12/18 19:28 APTT 28.1 Sec. (24.2-36.6) 11/12/18 19:28 Sodium 134 mmol/L (137-145) L 11/15/18 04:16 Potassium 3.9 mmol/L (3.6-5.0) 11/15/18 04:16 Chloride 97.5 mmol/L (98-107) L 11/15/18 04:16 Carbon Dioxide 25 mmol/L (22-30) 11/15/18 04:16 15 mmol/L 11/15/18 04:16 BUN 34 mg/dL (9-20) H 11/15/18 04:16 2.0 mg/dL (0.8-1.5) H 11/15/18 04:16 Estimated GFR 40 ml/min 11/15/18 04:16 17 % 11/15/18 04:16 Glucose 184 mg/dL (75-100) H 11/15/18 04:16 POC Glucose 287 (70-105) H 11/12/18 20:18 321 Mosm/kg 11/13/18 10:40 7.1 mg/dL (3.5-7.6) 11/13/18 10:40 Calcium 8.8 mg/dL (8.4-10.2) 11/15/18 04:16 Magnesium 2.80 mg/dL (1.7-2.3) H 11/12/18 19:28 Iron 36 ug/dL (49-181) L 11/14/18 05:50 TIBC 153 mcg/dL (250-450) L 11/14/18 05:50 896.0 ng/mL (13.0-400.0) H 11/14/18 05:50 1.70 mg/dL (0.1-1.2) H 11/12/18 19:28 AST 46 units/L (5-40) H 11/12/18 19:28 ALT 52 units/L (7-56) 11/12/18 19:28 95 units/L (35-129) 11/12/18 19:28 37.0 umol/L (25-60) 11/12/18 19:28 1255 units/L (55-170) H 11/15/18 04:16 CK-MB (CK-2) 17.0 ng/mL (0.0-4.0) H 11/13/18 14:54 CK-MB (CK-2) Rel Index 1.2 (0-4) 11/13/18 14:54 0.049 ng/mL (0.00-0.029) H D 11/13/18 14:54 7.2 g/dL (6.3-8.2) 11/12/18 19:28 3.3 g/dL (3.9-5) L 11/12/18 19:28 0.8 % 11/12/18 19:28 Triglycerides 95 mg/dL (2-149) 11/12/18 19:28 Cholesterol 103 mg/dL (50-199) 11/12/18 19:28 58 mg/dL (50-130) 11/12/18 19:28 44 mg/dL (40-59) 11/12/18 19:28 2.34 % 11/12/18 19:28 Yellow (Yellow) 11/12/18 20:32 Clear (Clear) 11/12/18 20:32 5.0 (5.0-7.0) 11/12/18 20:32 Ur Specific [place] 1.017 (1.003-1.030) 11/12/18 20:32 30 mg/dl mg/dL (Negative) 11/12/18 20:32 >=500 mg/dL (Negative) 11/12/18 20:32 Neg mg/dL (Negative) 11/12/18 20:32 Mod (Negative) 11/12/18 20:32 Neg (Negative) 11/12/18 20:32 Neg (Negative) 11/12/18 20:32 < 2.0 mg/dL (<2.0) 11/12/18 20:32 Ur Leukocyte Esterase Neg (Negative) 11/12/18 20:32 < 1.0 /HPF (0.0-6.0) 11/12/18 20:32 2.0 /HPF (0.0-6.0) 11/12/18 20:32 101.2 mg/dL (0.1-20.0) H 11/13/18 19:00 28 mmol/L 11/13/18 19:00 36 mg/dL (5-11.8) H 11/13/18 19:00 Salicylates < 0.3 mg/dL (2.8-20.0) L 11/12/18 19:28 Presumptive negative 11/12/18 20:32 Presumptive negative 11/12/18 20:32 Acetaminophen < 5.0 ug/mL (10.0-30.0) L 11/12/18 19:28 Ur Barbiturates Screen Presumptive negative 11/12/18 20:32 Ur Phencyclidine Scrn Presumptive negative 11/12/18 20:32 Ur Amphetamines Screen Presumptive negative 11/12/18 20:32 U Benzodiazepines Scrn Presumptive negative 11/12/18 20:32 Presumptive negative 11/12/18 20:32 U Marijuana (THC) Screen Presumptive negative 11/12/18 20:32 Disclamer 11/12/18 20:32 Plasma/Serum Alcohol < 0.01 % (0-0.07) 11/12/18 19:28 Active Medications - Current Medications Current Medications: Generic Name Dose Route Start Last Admin Trade Name Freq PRN Reason Stop Dose Admin Acetaminophen 650 mg 11/13/18 00:50 Tylenol PO Q4H PRN Pain MILD(1-3)/Fever >100.5/CORTES Sodium Bicarbonate 150 meq/ 1,150 mls @ 75 mls/hr 11/13/18 10:00 11/13/18 11:01 Sterile Water IV 75 mls/hr DIRECT EMERSON Administration Ondansetron HCl 4 mg 11/13/18 00:50 Zofran IV Q4H PRN Nausea And Vomiting Pantoprazole Sodium 40 mg 11/15/18 10:00 11/15/18 09:29 Protonix PO 40 mg QDAY EMERSON Administration Sodium Chloride 10 ml 11/13/18 10:00 11/15/18 09:33 Sodium Chloride Flush Syringe 10 Ml IV 10 ml BID EMERSON Administration Sodium Chloride 10 ml 11/13/18 00:50 Sodium Chloride Flush Syringe 10 Ml IV PRN PRN LINE FLUSH Nutrition/Malnutrition Assess - Dietary Evaluation Nutrition/Malnutrition Findings: Nutrition Notes Start: 11/13/18 12:07 Freq: Status: Active Protocol: Document 11/13/18 12:07 LP (Rec: 11/13/18 12:13 LP [id number]) Nutrition Notes Need for Assessment generated from: front desk person Initial or Follow up Assessment Current Diagnosis Acute Kidney Injury,CKD(stage I-IV),Hypertension,Stroke Current Diet renal Labs/Tests Na 136 BUN 47 Cr 2.6 BG 361 Pertinent Medications Reviewed Height 6 ft Weight 83.9 kg [place] Body Weight (kg) 80.90 BMI 25.0 Subjective/Other Information Screen for skin risk(13). Pt states eating better now. Consumed 50% of meal this AM. Pt states not eating well [employer]. Burn Absent Trauma Absent #1 Nutrition Diagnosis Inadequate oral intake Etiology decreased appetite [employer] As Evidenced by Signs and Symptoms Pt states not eating well [employer] and currently consuming 50% of meals Is patient on ventilator? No Is Patient Ambulatory and/or Out of Bed No REE-([facility]-confined to bed) 1951.400 Calculation Used for Recommendations [facility] Additional Notes Protein needs are 84-101g (1-1 .2g/kg) Fluid needs are 1ml/kcal Nutrition Intervention Change Diet Order: Renal consistent CHO Add Supplement/Snack (indicate name/kcal Vanilla Nepro daily /protein ) Provides kCal: 425 Provides Protein (gm) 25 Goal #1 Meet at least 80% of kcal and protein needs Anticipated Discharge Needs: renal consistent CHO Follow-Up By: 11/15/18 Additional Comments Follow for intakes
--- NOTE | 2018-11-15 18:33 | Consultation ---
History of Present Illness - [facility] Consult date: 11/15/18 Consult reason: fracture History of present illness: 73-year-old male history of A. fib, CVA, chronic kidney disease, hypertension was brought to the emergency room for evaluation because he fell. Patient with dementia unable to give adequate history, CT scan done on admission revealed nondisplaced right inferior pubic ramus fracture...currently denies pain... Past History Past Medical History: other (as per HPI) Past Surgical History: Other (pacemaker) Social history: denies: smoking, alcohol abuse Family history: other (unknown) Medications and Allergies Allergies Allergy/AdvReac Type Severity Reaction Status Date / Time No Known Allergies Allergy Verified 11/12/18 22:27 Active Meds: Active Medications Acetaminophen (Tylenol) 650 mg PO Q4H PRN PRN Reason: Pain MILD(1-3)/Fever >100.5/CORTES Sodium Bicarbonate 150 meq/ (Sterile Water) 1,150 mls @ 75 mls/hr IV DIRECT [facility] Last Admin: 11/13/18 11:01 Dose: 75 mls/hr Documented by: Ondansetron HCl (Zofran) 4 mg IV Q4H PRN PRN Reason: Nausea And Vomiting Pantoprazole Sodium (Protonix) 40 mg PO QDAY [facility] Last Admin: 11/15/18 09:29 Dose: 40 mg Documented by: Sodium Chloride (Sodium Chloride Flush Syringe 10 Ml) 10 ml IV BID [facility] Last Admin: 11/15/18 09:33 Dose: 10 ml Documented by: Sodium Chloride (Sodium Chloride Flush Syringe 10 Ml) 10 ml IV PRN PRN PRN Reason: LINE FLUSH Physical Examination - Physical exam Narrative exam: Pelvis - no obvious deformity, passive ROM ok, distal n/v intact Eyes: PERRL ENT: Positive: clear oral mucosa Respiratory effort: normal Respiratory: bilateral: CTA Rhythm: regular Heart Sounds: Positive: S1 & S2 General gastrointestinal: Positive: soft, non-tender, non-distended, normal bowel sounds Integumentary: clear, warm, dry Neurologic: Positive: CNII-XII intact, moves all extremities, gait normal. Negative: focal deficits - Cervical Spine Neck pain: none Tenderness with palpation: none Full ROM: yes ROM: flexion: normal ROM: extension: normal ROM: rotation right: normal ROM: rotation left: normal ROM: lateral flexion right: normal ROM: lateral flexion left: normal - Lumbar Spine Back pain: none Tenderness with palpation: none Appearance: normal Full ROM: yes ROM: flexion: normal ROM: extension: normal ROM: rotation right: normal ROM: rotation left: normal ROM: lateral flexion right: normal ROM: lateral flexion left: normal Assessment and Plan Non displaced stable pelvic fracture recommendation - WBAT with PT
[2018-11-16 05:44] LABS: Hematocrit 28.8 % (35.5-45.6); Hemoglobin 10.2 gm/dl (11.8-15.2)
[2018-11-16 05:48] LABS: INR 1.13 (0.87-1.13)
[2018-11-16] MEDS ORDERED: APRESOLINE IV PRN (10:00)
[2018-11-16] MEDS: SODIUM CHLORIDE FLUSH SYRINGE 10 ML IV SCH ×2 (10:21→22:52)
--- NOTE | 2018-11-16 12:03 | Progress Note ---
Subjective Principal diagnosis: occult +stool, anemia Interval history: Patient was seen today for follow-up of multiple renal related issues resting comfortably in bed No new labs today Events of 24 hours vitals labs intake output medications were reviewed Past medical history: Reviewed Family history: Reviewed Social history: Reviewed Allergies: Reviewed Physical examination: Vitals: Reviewed HEENT: No pallor or icterus oral mucosa moist Neck: Supple no JVD no thyromegaly Chest: Bilateral clear to auscultation anteriorly Heart: Regular rate and rhythm S1-S2 heard no S3-S4 Abdomen: Soft nontender no voluntary guarding rigidity rebound Extremity: Dry skin less than 1+ peripheral edema Psychiatric: No evidence of agitation and aggression noted Dermatology: No petechial rashes Labs and x-rays: Reviewed from today Assessment and plan acute kidney injury: Acute renal failure renal function has markedly improved yesterday creatinine was 2.0 Mild hyponatremia: Multifactorial in his case Proteinuria 30 mg protein creatinine ratio 36/101 Anemia mild multifactorial hemoglobin between 9 and 11 Ultrasound: Echogenic kidneys Patient is at risk for progression of renal failure Hyponatremia to monitor and follow Baseline creatinine 1.9 early November 2018 GI bleed noted to have heme positive stools, pelvic fracture, abnormal cardiac enzyme, atrial fibrillation, abdominal aortic aneurysm: Being followed by p cami team Continue with hydration and monitor renal function Low-grade rhabdomyolysis to monitor and follow Metabolic acidosis to monitor and follow We'll continue to follow and make recommendation for renal standpoint Objective - Vital Signs Vital signs: Vital Signs - 12hr 11/16/18 11/16/18 11/16/18 00:46 04:01 08:27 Temperature 98.6 F 98.7 F Pulse Rate 80 80 84 Respiratory 20 20 Rate Blood Pressure 146/76 177/77 O2 Sat by Pulse 91 96 Oximetry 11/16/18 11/16/18 09:04 10:20 Temperature Pulse Rate 84 Respiratory Rate Blood Pressure 177/77 O2 Sat by Pulse 98 Oximetry - Lab 11/16/18 05:15 11/15/18 04:16 Most recent lab results Calcium 8.8 mg/dL (8.4-10.2) 11/15/18 04:16 Magnesium 2.80 mg/dL (1.7-2.3) H 11/12/18 19:28 101.2 mg/dL (0.1-20.0) H 11/13/18 19:00 28 mmol/L 11/13/18 19:00 36 mg/dL (5-11.8) H 11/13/18 19:00 Medications & Allergies - Medications Allergies/Adverse Reactions: Allergies No Known Allergies Allergy (Verified 11/12/18 22:27) Active Medications: Generic Name Dose Route Start Last Admin Trade Name Freq PRN Reason Stop Dose Admin Acetaminophen 650 mg 11/13/18 00:50 Tylenol PO Q4H PRN Pain MILD(1-3)/Fever >100.5/CORTES Hydralazine HCl 10 mg 11/16/18 10:00 11/16/18 10:20 Apresoline IV 10 mg Q4HR PRN Administration Blood Pressure Sodium Bicarbonate 150 meq/ 1,150 mls @ 75 mls/hr 11/13/18 10:00 11/13/18 11:01 Sterile Water IV 75 mls/hr DIRECT EMERSON Administration Ondansetron HCl 4 mg 11/13/18 00:50 Zofran IV Q4H PRN Nausea And Vomiting Pantoprazole Sodium 40 mg 11/15/18 10:00 11/15/18 09:29 Protonix PO 40 mg QDAY EMERSON Administration Sodium Chloride 10 ml 11/13/18 10:00 11/16/18 10:21 Sodium Chloride Flush Syringe 10 Ml IV 10 ml BID EMERSON Administration Sodium Chloride 10 ml 11/13/18 00:50 Sodium Chloride Flush Syringe 10 Ml IV PRN PRN LINE FLUSH
--- NOTE | 2018-11-16 13:32 | Gastroenterology Progress Note ---
Assessment and Plan 1.heme +stool 2.anemia -H/H 10.2/28.8-trending up (H/H WNL on 11/08/18) -continue to monitor H/H and transfuse as needed -iron 36 -no active signs of GI bleeding -etiology unclear -possibly related to recent fall with pelvic fractures, how ever CT negative for retroperitoneal bleed vs other -patient refused colon prep overnight and is currently refusing procedures (no POA or next to kin available per caregiver) -EGD/colonoscopy cancelled for today -okay to resume diet -continue PPI and supportive care -patient okay to be d/c per GI standpoint with further workup/management as outpatient -will sign off, please call if needed 3.acute on chronic renal insufficiency 4.pelvic fractures s/p fall 5.Afib 6.AAA Subjective Date of service: 11/16/18 Principal diagnosis: occult +stool, anemia Interval history: Patient refused colon prep overnight. No acute distress, GI complaints, or active signs of bleeding. Objective - Constitutional Vitals: Temp Pulse Resp BP Pulse Ox 98.7 F 84 20 177/77 98 11/16/18 08:27 11/16/18 10:20 11/16/18 08:27 11/16/18 10:20 11/16/18 09:04 General appearance: no acute distress - Respiratory Respiratory effort: normal - Cardiovascular Rhythm: regular - Gastrointestinal General gastrointestinal: Present: soft, non-tender, non-distended, normal bowel sounds - Labs CBC & Chem 7: 11/16/18 05:15 11/15/18 04:16 Labs: Laboratory Results - last 24 hr 11/16/18 11/16/18 05:15 05:15 Hgb 10.2 L Hct 28.8 L PT 14.2 INR 1.13
--- NOTE | 2018-11-16 14:20 | Progress Note ---
Assessment and Plan Assessment and plan: GI bleed. GI following. Patient with no active signs of GI bleeding overnight or this am per nursing. GI plans to evaluate with EGD and colonoscopy as an outpatient. Patient refuses colon prep overnight and is currently refusing procedures. No POA available. Continue PPI Anemia. Continue to monitor H&H and transfuse for hemoglobin less than 7. Acute on chronic renal insufficiency. Nephrology following Pelvic fracture. Orthopedics recommends passive range of motion. Physical therapy consult. Abnormal cardiac enzymes. No reports of chest pain. Etiology likely secondary to renal insufficiency. Mild rhabdomyolysis. Continue IV fluids. F/U CK A. fib. Rate currently controlled. Acute hypoxic respiratory failure. Continue O2 to maintain sats greater or 92%. Abdominal aortic aneurysm 3.4 cm. Outpatient vascular follow-up. History Interval history: 73-year-old male history of A. fib, CVA, chronic kidney disease, hypertension was brought to the emergency room for evaluation because of a fall Hospitalist Physical - Constitutional Vitals: Temp Pulse Resp BP Pulse Ox 98.7 F 84 20 177/77 98 11/16/18 08:27 11/16/18 10:20 11/16/18 08:27 11/16/18 10:20 11/16/18 09:04 General appearance: Present: no acute distress, well-nourished - EENT Eyes: Present: PERRL, EOM intact ENT: hearing intact, clear oral mucosa, dentition normal - Neck Neck: Present: supple, normal ROM - Respiratory Respiratory effort: normal Respiratory: bilateral: CTA - Cardiovascular Rhythm: regular Heart Sounds: Present: S1 & S2. Absent: gallop, rub - Extremities Extremities: no ischemia, No edema, Full ROM - Abdominal General gastrointestinal: soft, non-tender, non-distended, normal bowel sounds - Integumentary Integumentary: Present: clear, warm, dry - Neurologic Neurologic: CNII-XII intact, moves all extremities Results - Labs CBC & Chem 7: 11/16/18 05:15 11/15/18 04:16 Labs: Laboratory Last Values WBC 7.3 K/mm3 (4.5-11.0) 11/15/18 04:16 RBC 2.97 M/mm3 (3.65-5.03) L 11/15/18 04:16 Hgb 10.2 gm/dl (11.8-15.2) L 11/16/18 05:15 Hct 28.8 % (35.5-45.6) L 11/16/18 05:15 MCV 89 fl (84-94) 11/15/18 04:16 MCH 32 pg (28-32) 11/15/18 04:16 MCHC 36 % (32-34) H 11/15/18 04:16 RDW 15.0 % (13.2-15.2) 11/15/18 04:16 Plt Count 216 K/mm3 (140-440) 11/15/18 04:16 Lymph % (Auto) 16.2 % (13.4-35.0) 11/15/18 04:16 [place] % (Auto) 8.3 % (0.0-7.3) H 11/15/18 04:16 Eos % (Auto) 1.1 % (0.0-4.3) 11/15/18 04:16 Baso % (Auto) 0.3 % (0.0-1.8) 11/15/18 04:16 Lymph # 1.2 K/mm3 (1.2-5.4) 11/15/18 04:16 [place] # 0.6 K/mm3 (0.0-0.8) 11/15/18 04:16 Eos # 0.1 K/mm3 (0.0-0.4) 11/15/18 04:16 Baso # 0.0 K/mm3 (0.0-0.1) 11/15/18 04:16 Seg Neutrophils % 74.1 % (40.0-70.0) H 11/15/18 04:16 Seg Neutrophils # 5.4 K/mm3 (1.8-7.7) 11/15/18 04:16 PT 14.2 Sec. (12.2-14.9) 11/16/18 05:15 INR 1.13 (0.87-1.13) 11/16/18 05:15 APTT 28.1 Sec. (24.2-36.6) 11/12/18 19:28 Sodium 134 mmol/L (137-145) L 11/15/18 04:16 Potassium 3.9 mmol/L (3.6-5.0) 11/15/18 04:16 Chloride 97.5 mmol/L (98-107) L 11/15/18 04:16 Carbon Dioxide 25 mmol/L (22-30) 11/15/18 04:16 15 mmol/L 11/15/18 04:16 BUN 34 mg/dL (9-20) H 11/15/18 04:16 2.0 mg/dL (0.8-1.5) H 11/15/18 04:16 Estimated GFR 40 ml/min 11/15/18 04:16 17 % 11/15/18 04:16 Glucose 184 mg/dL (75-100) H 11/15/18 04:16 POC Glucose 287 (70-105) H 11/12/18 20:18 321 Mosm/kg 11/13/18 10:40 7.1 mg/dL (3.5-7.6) 11/13/18 10:40 Calcium 8.8 mg/dL (8.4-10.2) 11/15/18 04:16 Magnesium 2.80 mg/dL (1.7-2.3) H 11/12/18 19:28 Iron 36 ug/dL (49-181) L 11/14/18 05:50 TIBC 153 mcg/dL (250-450) L 11/14/18 05:50 896.0 ng/mL (13.0-400.0) H 11/14/18 05:50 1.70 mg/dL (0.1-1.2) H 11/12/18 19:28 AST 46 units/L (5-40) H 11/12/18 19:28 ALT 52 units/L (7-56) 11/12/18 19:28 95 units/L (35-129) 11/12/18 19:28 37.0 umol/L (25-60) 11/12/18 19:28 1255 units/L (55-170) H 11/15/18 04:16 CK-MB (CK-2) 17.0 ng/mL (0.0-4.0) H 11/13/18 14:54 CK-MB (CK-2) Rel Index 1.2 (0-4) 11/13/18 14:54 0.049 ng/mL (0.00-0.029) H D 11/13/18 14:54 7.2 g/dL (6.3-8.2) 11/12/18 19:28 3.3 g/dL (3.9-5) L 11/12/18 19:28 0.8 % 11/12/18 19:28 Triglycerides 95 mg/dL (2-149) 11/12/18 19:28 Cholesterol 103 mg/dL (50-199) 11/12/18 19:28 58 mg/dL (50-130) 11/12/18 19:28 44 mg/dL (40-59) 11/12/18 19:28 2.34 % 11/12/18 19:28 Yellow (Yellow) 11/12/18 20:32 Clear (Clear) 11/12/18 20:32 5.0 (5.0-7.0) 11/12/18 20:32 Ur Specific [place] 1.017 (1.003-1.030) 11/12/18 20:32 30 mg/dl mg/dL (Negative) 11/12/18 20:32 >=500 mg/dL (Negative) 11/12/18 20:32 Neg mg/dL (Negative) 11/12/18 20:32 Mod (Negative) 11/12/18 20:32 Neg (Negative) 11/12/18 20:32 Neg (Negative) 11/12/18 20:32 < 2.0 mg/dL (<2.0) 11/12/18 20:32 Ur Leukocyte Esterase Neg (Negative) 11/12/18 20:32 < 1.0 /HPF (0.0-6.0) 11/12/18 20:32 2.0 /HPF (0.0-6.0) 11/12/18 20:32 101.2 mg/dL (0.1-20.0) H 11/13/18 19:00 28 mmol/L 11/13/18 19:00 36 mg/dL (5-11.8) H 11/13/18 19:00 Salicylates < 0.3 mg/dL (2.8-20.0) L 11/12/18 19:28 Presumptive negative 11/12/18 20:32 Presumptive negative 11/12/18 20:32 Acetaminophen < 5.0 ug/mL (10.0-30.0) L 11/12/18 19:28 Ur Barbiturates Screen Presumptive negative 11/12/18 20:32 Ur Phencyclidine Scrn Presumptive negative 11/12/18 20:32 Ur Amphetamines Screen Presumptive negative 11/12/18 20:32 U Benzodiazepines Scrn Presumptive negative 11/12/18 20:32 Presumptive negative 11/12/18 20:32 U Marijuana (THC) Screen Presumptive negative 11/12/18 20:32 Disclamer 11/12/18 20:32 Plasma/Serum Alcohol < 0.01 % (0-0.07) 11/12/18 19:28 Active Medications - Current Medications Current Medications: Generic Name Dose Route Start Last Admin Trade Name Freq PRN Reason Stop Dose Admin Acetaminophen 650 mg 11/13/18 00:50 Tylenol PO Q4H PRN Pain MILD(1-3)/Fever >100.5/CORTES Hydralazine HCl 10 mg 11/16/18 10:00 11/16/18 10:20 Apresoline IV 10 mg Q4HR PRN Administration Blood Pressure Ondansetron HCl 4 mg 11/13/18 00:50 Zofran IV Q4H PRN Nausea And Vomiting Pantoprazole Sodium 40 mg 11/15/18 10:00 11/15/18 09:29 Protonix PO 40 mg QDAY EMERSON Administration Sodium Chloride 10 ml 11/13/18 10:00 11/16/18 10:21 Sodium Chloride Flush Syringe 10 Ml IV 10 ml BID EMERSON Administration Sodium Chloride 10 ml 11/13/18 00:50 Sodium Chloride Flush Syringe 10 Ml IV PRN PRN LINE FLUSH Nutrition/Malnutrition Assess - Dietary Evaluation Nutrition/Malnutrition Findings: Nutrition Notes Start: 11/13/18 12:07 Freq: Status: Active Protocol: Document 11/15/18 16:04 RM (Rec: 11/15/18 16:11 [id number]) Nutrition Notes Initial or Follow up Reassessment Current Diagnosis Acute Kidney Injury,CKD(stage I-IV),Hypertension,Stroke Current Diet Clear liquid Labs/Tests Reviewed Pertinent Medications Reviewed Height 6 ft Weight 83.9 kg [place] Body Weight (kg) 80.90 BMI 25.0 Subjective/Other Information Pureed diet recommended per bedside dysphagia evaluation. Pureed diet in place earlier today. Clear liquid diet ordered for lunch. [place] was not carried over when diet was changed to pureed. Pt confused at time of visit. Per tech pt ate 25% of breakfast. Percent of energy/protein needs met: 23%/23% Burn Absent Trauma Absent #1 Nutrition Diagnosis Inadequate oral intake Diagnosis Progress(for reassessment Continues documentation) Is patient on ventilator? No Is Patient Ambulatory and/or Out of Bed No REE-([facility]-confined to bed) 1952.400 Calculation Used for Recommendations [facility] Additional Notes Protein needs are 84-101g (1-1 .2g/kg) Fluid needs are 1ml/kcal Nutrition Intervention Change Diet Order: Advance diet when medically able Add Supplement/Snack (indicate name/kcal Ensure Clear 1 daily /protein ) Provides kCal: 240 Provides Protein (gm) 8 Goal #1 Diet advancement Anticipated Discharge Needs: renal consistent CHO Follow-Up By: 11/19/18 Additional Comments Follow for PO and ONS intakes
[2018-11-16] MEDS: PROTONIX PO SCH (16:32)
--- NOTE | 2018-11-17 10:02 | Progress Note ---
Assessment and Plan Assessment and plan: GI bleed. GI following. Patient with no active signs of GI bleeding overnight or this am per nursing. GI plans to evaluate with EGD and colonoscopy as an outpatient. Patient refuses colon prep overnight and is currently refusing procedures. No POA available. Continue PPI Anemia. Continue to monitor H&H and transfuse for hemoglobin less than 7. Acute on chronic renal insufficiency. Nephrology following Pelvic fracture. Orthopedics recommends passive range of motion. Physical therapy following. Abnormal cardiac enzymes. No reports of chest pain. Etiology likely secondary to renal insufficiency. Mild rhabdomyolysis. Continue IV fluids. F/U CK A. fib. Rate currently controlled. Acute hypoxic respiratory failure. Continue O2 to maintain sats greater or 92%. Abdominal aortic aneurysm 3.4 cm. Outpatient vascular follow-up. Disposition. Await PT recommendations. History Interval history: 73-year-old male history of A. fib, CVA, chronic kidney disease, hypertension was brought to the emergency room for evaluation because of a fall Hospitalist Physical - Constitutional Vitals: Temp Pulse Resp BP Pulse Ox 97.7 F 82 20 139/73 94 11/17/18 03:40 11/17/18 03:40 11/17/18 03:40 11/17/18 03:40 11/17/18 08:40 General appearance: Present: no acute distress, well-nourished - EENT Eyes: Present: PERRL, EOM intact ENT: hearing intact, clear oral mucosa, dentition normal - Neck Neck: Present: supple, normal ROM - Respiratory Respiratory effort: normal Respiratory: bilateral: CTA - Cardiovascular Rhythm: regular Heart Sounds: Present: S1 & S2. Absent: gallop, rub - Extremities Extremities: no ischemia, No edema, Full ROM - Abdominal General gastrointestinal: soft, non-tender, non-distended, normal bowel sounds - Integumentary Integumentary: Present: clear, warm, dry - Neurologic Neurologic: CNII-XII intact, moves all extremities Results - Labs CBC & Chem 7: 11/16/18 05:15 11/15/18 04:16 Labs: Laboratory Last Values WBC 7.3 K/mm3 (4.5-11.0) 11/15/18 04:16 RBC 2.97 M/mm3 (3.65-5.03) L 11/15/18 04:16 Hgb 10.2 gm/dl (11.8-15.2) L 11/16/18 05:15 Hct 28.8 % (35.5-45.6) L 11/16/18 05:15 MCV 89 fl (84-94) 11/15/18 04:16 MCH 32 pg (28-32) 11/15/18 04:16 MCHC 36 % (32-34) H 11/15/18 04:16 RDW 15.0 % (13.2-15.2) 11/15/18 04:16 Plt Count 216 K/mm3 (140-440) 11/15/18 04:16 Lymph % (Auto) 16.2 % (13.4-35.0) 11/15/18 04:16 [place] % (Auto) 8.3 % (0.0-7.3) H 11/15/18 04:16 Eos % (Auto) 1.1 % (0.0-4.3) 11/15/18 04:16 Baso % (Auto) 0.3 % (0.0-1.8) 11/15/18 04:16 Lymph # 1.2 K/mm3 (1.2-5.4) 11/15/18 04:16 [place] # 0.6 K/mm3 (0.0-0.8) 11/15/18 04:16 Eos # 0.1 K/mm3 (0.0-0.4) 11/15/18 04:16 Baso # 0.0 K/mm3 (0.0-0.1) 11/15/18 04:16 Seg Neutrophils % 74.1 % (40.0-70.0) H 11/15/18 04:16 Seg Neutrophils # 5.4 K/mm3 (1.8-7.7) 11/15/18 04:16 PT 14.2 Sec. (12.2-14.9) 11/16/18 05:15 INR 1.13 (0.87-1.13) 11/16/18 05:15 APTT 28.1 Sec. (24.2-36.6) 11/12/18 19:28 Sodium 134 mmol/L (137-145) L 11/15/18 04:16 Potassium 3.9 mmol/L (3.6-5.0) 11/15/18 04:16 Chloride 97.5 mmol/L (98-107) L 11/15/18 04:16 Carbon Dioxide 25 mmol/L (22-30) 11/15/18 04:16 15 mmol/L 11/15/18 04:16 BUN 34 mg/dL (9-20) H 11/15/18 04:16 2.0 mg/dL (0.8-1.5) H 11/15/18 04:16 Estimated GFR 40 ml/min 11/15/18 04:16 17 % 11/15/18 04:16 Glucose 184 mg/dL (75-100) H 11/15/18 04:16 POC Glucose 287 (70-105) H 11/12/18 20:18 321 Mosm/kg 11/13/18 10:40 7.1 mg/dL (3.5-7.6) 11/13/18 10:40 Calcium 8.8 mg/dL (8.4-10.2) 11/15/18 04:16 Magnesium 2.80 mg/dL (1.7-2.3) H 11/12/18 19:28 Iron 36 ug/dL (49-181) L 11/14/18 05:50 TIBC 153 mcg/dL (250-450) L 11/14/18 05:50 896.0 ng/mL (13.0-400.0) H 11/14/18 05:50 1.70 mg/dL (0.1-1.2) H 11/12/18 19:28 AST 46 units/L (5-40) H 11/12/18 19:28 ALT 52 units/L (7-56) 11/12/18 19:28 95 units/L (35-129) 11/12/18 19:28 37.0 umol/L (25-60) 11/12/18 19:28 1255 units/L (55-170) H 11/15/18 04:16 CK-MB (CK-2) 17.0 ng/mL (0.0-4.0) H 11/13/18 14:54 CK-MB (CK-2) Rel Index 1.2 (0-4) 11/13/18 14:54 0.049 ng/mL (0.00-0.029) H D 11/13/18 14:54 7.2 g/dL (6.3-8.2) 11/12/18 19:28 3.3 g/dL (3.9-5) L 11/12/18 19:28 0.8 % 11/12/18 19:28 Triglycerides 95 mg/dL (2-149) 11/12/18 19:28 Cholesterol 103 mg/dL (50-199) 11/12/18 19:28 58 mg/dL (50-130) 11/12/18 19:28 44 mg/dL (40-59) 11/12/18 19:28 2.34 % 11/12/18 19:28 Yellow (Yellow) 11/12/18 20:32 Clear (Clear) 11/12/18 20:32 5.0 (5.0-7.0) 11/12/18 20:32 Ur Specific [place] 1.017 (1.003-1.030) 11/12/18 20:32 30 mg/dl mg/dL (Negative) 11/12/18 20:32 >=500 mg/dL (Negative) 11/12/18 20:32 Neg mg/dL (Negative) 11/12/18 20:32 Mod (Negative) 11/12/18 20:32 Neg (Negative) 11/12/18 20:32 Neg (Negative) 11/12/18 20:32 < 2.0 mg/dL (<2.0) 11/12/18 20:32 Ur Leukocyte Esterase Neg (Negative) 11/12/18 20:32 < 1.0 /HPF (0.0-6.0) 11/12/18 20:32 2.0 /HPF (0.0-6.0) 11/12/18 20:32 101.2 mg/dL (0.1-20.0) H 11/13/18 19:00 28 mmol/L 11/13/18 19:00 36 mg/dL (5-11.8) H 11/13/18 19:00 Salicylates < 0.3 mg/dL (2.8-20.0) L 11/12/18 19:28 Presumptive negative 11/12/18 20:32 Presumptive negative 11/12/18 20:32 Acetaminophen < 5.0 ug/mL (10.0-30.0) L 11/12/18 19:28 Ur Barbiturates Screen Presumptive negative 11/12/18 20:32 Ur Phencyclidine Scrn Presumptive negative 11/12/18 20:32 Ur Amphetamines Screen Presumptive negative 11/12/18 20:32 U Benzodiazepines Scrn Presumptive negative 11/12/18 20:32 Presumptive negative 11/12/18 20:32 U Marijuana (THC) Screen Presumptive negative 11/12/18 20:32 Disclamer 11/12/18 20:32 Plasma/Serum Alcohol < 0.01 % (0-0.07) 11/12/18 19:28 Active Medications - Current Medications Current Medications: Generic Name Dose Route Start Last Admin Trade Name Freq PRN Reason Stop Dose Admin Acetaminophen 650 mg 11/13/18 00:50 Tylenol PO Q4H PRN Pain MILD(1-3)/Fever >100.5/CORTES Hydralazine HCl 10 mg 11/16/18 10:00 11/16/18 10:20 Apresoline IV 10 mg Q4HR PRN Administration Blood Pressure Ondansetron HCl 4 mg 11/13/18 00:50 Zofran IV Q4H PRN Nausea And Vomiting Pantoprazole Sodium 40 mg 11/15/18 10:00 11/16/18 16:32 Protonix PO 40 mg QDAY EMERSON Administration Sodium Chloride 10 ml 11/13/18 10:00 11/16/18 22:52 Sodium Chloride Flush Syringe 10 Ml IV 10 ml BID EMERSON Administration Sodium Chloride 10 ml 11/13/18 00:50 Sodium Chloride Flush Syringe 10 Ml IV PRN PRN LINE FLUSH Nutrition/Malnutrition Assess - Dietary Evaluation Nutrition/Malnutrition Findings: Nutrition Notes Start: 11/13/18 12:07 Freq: Status: Active Protocol: Document 11/16/18 17:45 RM (Rec: 11/16/18 17:54 RM [id number]) Nutrition Notes Initial or Follow up Reassessment Current Diagnosis Acute Kidney Injury,CKD(stage I-IV),Hypertension,Stroke Current Diet Pureed Labs/Tests Reviewed Pertinent Medications Reviewed Height 6 ft Weight 58 kg [place] Body Weight (kg) 80.90 BMI 17.3 Weight change and time frame Current wt obtained from bedscale Subjective/Other Information Screened for low BMI. Pt already being followed. Diet advanced to pureed today. Confirmed wt change on bedscale. Previous recorded wt likely inaccurate. Noted temporal wasting. Burn Absent Trauma Absent #2 Nutrition Diagnosis Malnutrition Etiology CVA As Evidenced by Signs and Symptoms BMI 18.3, temporal wasting #1 Nutrition Diagnosis Inadequate oral intake Diagnosis Progress(for reassessment Continues documentation) Is patient on ventilator? No Is Patient Ambulatory and/or Out of Bed No REE-([place]-confined to bed) 1641.912 Kcal/Kg value to use for calculation 34 Approximate Energy Requirements Using 1972 kcal/Kg Calculation Used for Recommendations Kcal/kg Additional Notes Protein needs are 84-101g (1-1 .2g/kg) Fluid needs are 1ml/kcal Nutrition Intervention Change Diet Order: Pureed, Renal Add Supplement/Snack (indicate name/kcal Ensure Clear 1 daily /protein ) Provides kCal: 240 Provides Protein (gm) 8 Goal #1 Meet at least 75% of calorie and protein needs via PO and ONS intakes Anticipated Discharge Needs: Unable to determine at this time Follow-Up By: 11/19/18 Additional Comments Follow for PO and ONS intakes
[2018-11-17] MEDS: SODIUM CHLORIDE FLUSH SYRINGE 10 ML IV SCH (10:07)
[2018-11-17] MEDS: PROTONIX PO SCH (10:07)
--- NOTE | 2018-11-17 11:09 | Progress Note ---
Subjective Principal diagnosis: occult +stool, anemia Interval history: Patient was seen today for follow-up of multiple renal related issues resting comfortably in bed wants to go home No new labs today Events of 24 hours vitals labs intake output medications were reviewed Past medical history: Reviewed Family history: Reviewed Social history: Reviewed Allergies: Reviewed Physical examination: Vitals: Reviewed HEENT: No pallor or icterus oral mucosa moist Neck: Supple no JVD no thyromegaly Chest: Bilateral clear to auscultation anteriorly Heart: Regular rate and rhythm S1-S2 heard no S3-S4 Abdomen: Soft nontender no voluntary guarding rigidity rebound Extremity: Dry skin less than 1+ peripheral edema Psychiatric: No evidence of agitation and aggression noted Dermatology: No petechial rashes Labs and x-rays: Reviewed from today Assessment and plan acute kidney injury: Acute renal failure renal function has markedly improved continue to monitor renal function, avoid nephrotoxic medication Creatinine is close to his baseline, 1.9 in November 2018 Mild hyponatremia: Multifactorial in his case Proteinuria 30 mg protein creatinine ratio 36/101 Anemia mild multifactorial hemoglobin between 9 and 11 Ultrasound: Echogenic kidneys Patient is at risk for progression of renal failure Hyponatremia to monitor and follow GI bleed noted to have heme positive stools, pelvic fracture, abnormal cardiac enzyme, atrial fibrillation, abdominal aortic aneurysm: Being followed by primary team Continue with hydration and monitor renal function Low-grade rhabdomyolysis to monitor and follow Metabolic acidosis to monitor and follow We'll continue to follow and make recommendation for renal standpoint Objective - Vital Signs Vital signs: Vital Signs - 12hr 11/17/18 11/17/18 11/17/18 00:00 03:40 08:10 Temperature 98.0 F 97.7 F 98.0 F Pulse Rate 77 82 79 Respiratory 18 20 16 Rate Blood Pressure 139/73 139/69 Blood Pressure 156/78 [Left] O2 Sat by Pulse 90 97 94 Oximetry 11/17/18 08:40 Temperature Pulse Rate Respiratory Rate Blood Pressure Blood Pressure [Left] O2 Sat by Pulse 94 Oximetry - Lab 11/16/18 05:15 11/17/18 12:13 Most recent lab results Calcium 8.8 mg/dL (8.4-10.2) 11/15/18 04:16 Magnesium 2.80 mg/dL (1.7-2.3) H 11/12/18 19:28 101.2 mg/dL (0.1-20.0) H 11/13/18 19:00 28 mmol/L 11/13/18 19:00 36 mg/dL (5-11.8) H 11/13/18 19:00 Medications & Allergies - Medications Allergies/Adverse Reactions: Allergies No Known Allergies Allergy (Verified 11/12/18 22:27) Active Medications: Generic Name Dose Route Start Last Admin Trade Name Freq PRN Reason Stop Dose Admin Acetaminophen 650 mg 11/13/18 00:50 Tylenol PO Q4H PRN Pain MILD(1-3)/Fever >100.5/CORTES Hydralazine HCl 10 mg 11/16/18 10:00 11/16/18 10:20 Apresoline IV 10 mg Q4HR PRN Administration Blood Pressure Ondansetron HCl 4 mg 11/13/18 00:50 Zofran IV Q4H PRN Nausea And Vomiting Pantoprazole Sodium 40 mg 11/15/18 10:00 11/17/18 10:07 Protonix PO 40 mg QDAY EMERSON Administration Sodium Chloride 10 ml 11/13/18 10:00 11/17/18 10:07 Sodium Chloride Flush Syringe 10 Ml IV 10 ml BID EMERSON Administration Sodium Chloride 10 ml 11/13/18 00:50 Sodium Chloride Flush Syringe 10 Ml IV PRN PRN LINE FLUSH
[2018-11-17 13:18] LABS: Calcium 8.8 mg/dL (8.4-10.2)
[2018-11-18] MEDS: SODIUM CHLORIDE FLUSH SYRINGE 10 ML IV SCH ×3 (07:28→22:13)
[2018-11-18] MEDS: PROTONIX PO SCH (11:03)
--- NOTE | 2018-11-18 11:29 | Progress Note ---
Assessment and Plan Assessment and plan: GI bleed. GI following. Patient with no active signs of GI bleeding overnight or this am per nursing. GI plans to evaluate with EGD and colonoscopy as an outpatient. Patient refuses colon prep overnight and is currently refusing procedures. No POA available. Continue PPI Anemia. Continue to monitor H&H and transfuse for hemoglobin less than 7. Acute on chronic renal insufficiency. Etiology likely secondary to acute kidney injury from vasomotor nephropathy/dehydration. Creatinine continues to improve. Nephrology following Pelvic fracture. Orthopedics recommends passive range of motion. Physical therapy following. Abnormal cardiac enzymes. No reports of chest pain. Etiology likely secondary to renal insufficiency. Mild rhabdomyolysis. Continue IV fluids. F/U CK A. fib. Rate currently controlled. Acute hypoxic respiratory failure. Continue O2 to maintain sats greater or 92%. Abdominal aortic aneurysm 3.4 cm. Outpatient vascular follow-up. Disposition. Await PT recommendations. History Interval history: 73-year-old male history of A. fib, CVA, chronic kidney disease, hypertension was brought to the emergency room for evaluation because of a fall Hospitalist Physical - Constitutional Vitals: Temp Pulse Resp BP Pulse Ox 98.4 F 80 18 147/68 97 11/18/18 07:53 11/18/18 07:53 11/18/18 07:53 11/18/18 07:53 11/18/18 07:53 General appearance: Present: no acute distress, well-nourished - EENT Eyes: Present: PERRL, EOM intact ENT: hearing intact, clear oral mucosa, dentition normal - Neck Neck: Present: supple, normal ROM - Respiratory Respiratory effort: normal Respiratory: bilateral: CTA - Cardiovascular Rhythm: regular Heart Sounds: Present: S1 & S2. Absent: gallop, rub - Extremities Extremities: no ischemia, No edema, Full ROM - Abdominal General gastrointestinal: soft, non-tender, non-distended, normal bowel sounds - Integumentary Integumentary: Present: clear, warm, dry - Neurologic Neurologic: CNII-XII intact, moves all extremities Results - Labs CBC & Chem 7: 11/16/18 05:15 11/17/18 12:13 Labs: Laboratory Last Values WBC 7.3 K/mm3 (4.5-11.0) 11/15/18 04:16 RBC 2.97 M/mm3 (3.65-5.03) L 11/15/18 04:16 Hgb 10.2 gm/dl (11.8-15.2) L 11/16/18 05:15 Hct 28.8 % (35.5-45.6) L 11/16/18 05:15 MCV 89 fl (84-94) 11/15/18 04:16 MCH 32 pg (28-32) 11/15/18 04:16 MCHC 36 % (32-34) H 11/15/18 04:16 RDW 15.0 % (13.2-15.2) 11/15/18 04:16 Plt Count 216 K/mm3 (140-440) 11/15/18 04:16 Lymph % (Auto) 16.2 % (13.4-35.0) 11/15/18 04:16 [place] % (Auto) 8.3 % (0.0-7.3) H 11/15/18 04:16 Eos % (Auto) 1.1 % (0.0-4.3) 11/15/18 04:16 Baso % (Auto) 0.3 % (0.0-1.8) 11/15/18 04:16 Lymph # 1.2 K/mm3 (1.2-5.4) 11/15/18 04:16 [place] # 0.6 K/mm3 (0.0-0.8) 11/15/18 04:16 Eos # 0.1 K/mm3 (0.0-0.4) 11/15/18 04:16 Baso # 0.0 K/mm3 (0.0-0.1) 11/15/18 04:16 Seg Neutrophils % 74.1 % (40.0-70.0) H 11/15/18 04:16 Seg Neutrophils # 5.4 K/mm3 (1.8-7.7) 11/15/18 04:16 PT 14.2 Sec. (12.2-14.9) 11/16/18 05:15 INR 1.13 (0.87-1.13) 11/16/18 05:15 APTT 28.1 Sec. (24.2-36.6) 11/12/18 19:28 Sodium 135 mmol/L (137-145) L 11/17/18 12:13 Potassium 3.9 mmol/L (3.6-5.0) 11/17/18 12:13 Chloride 99.3 mmol/L (98-107) 11/17/18 12:13 Carbon Dioxide 21 mmol/L (22-30) L 11/17/18 12:13 19 mmol/L 11/17/18 12:13 BUN 27 mg/dL (9-20) H 11/17/18 12:13 1.6 mg/dL (0.8-1.5) H 11/17/18 12:13 Estimated GFR 52 ml/min 11/17/18 12:13 17 % 11/17/18 12:13 Glucose 205 mg/dL (75-100) H 11/17/18 12:13 POC Glucose 287 (70-105) H 11/12/18 20:18 321 Mosm/kg 11/13/18 10:40 7.1 mg/dL (3.5-7.6) 11/13/18 10:40 Calcium 8.8 mg/dL (8.4-10.2) 11/17/18 12:13 Magnesium 2.80 mg/dL (1.7-2.3) H 11/12/18 19:28 Iron 36 ug/dL (49-181) L 11/14/18 05:50 TIBC 153 mcg/dL (250-450) L 11/14/18 05:50 896.0 ng/mL (13.0-400.0) H 11/14/18 05:50 1.70 mg/dL (0.1-1.2) H 11/12/18 19:28 AST 46 units/L (5-40) H 11/12/18 19:28 ALT 52 units/L (7-56) 11/12/18 19:28 95 units/L (35-129) 11/12/18 19:28 37.0 umol/L (25-60) 11/12/18 19:28 1255 units/L (55-170) H 11/15/18 04:16 CK-MB (CK-2) 17.0 ng/mL (0.0-4.0) H 11/13/18 14:54 CK-MB (CK-2) Rel Index 1.2 (0-4) 11/13/18 14:54 0.049 ng/mL (0.00-0.029) H D 11/13/18 14:54 7.2 g/dL (6.3-8.2) 11/12/18 19:28 3.3 g/dL (3.9-5) L 11/12/18 19:28 0.8 % 11/12/18 19:28 Triglycerides 95 mg/dL (2-149) 11/12/18 19:28 Cholesterol 103 mg/dL (50-199) 11/12/18 19:28 58 mg/dL (50-130) 11/12/18 19:28 44 mg/dL (40-59) 11/12/18 19:28 2.34 % 11/12/18 19:28 Yellow (Yellow) 11/12/18 20:32 Clear (Clear) 11/12/18 20:32 5.0 (5.0-7.0) 11/12/18 20:32 Ur Specific [place] 1.017 (1.003-1.030) 11/12/18 20:32 30 mg/dl mg/dL (Negative) 11/12/18 20:32 >=500 mg/dL (Negative) 11/12/18 20:32 Neg mg/dL (Negative) 11/12/18 20:32 Mod (Negative) 11/12/18 20:32 Neg (Negative) 11/12/18 20:32 Neg (Negative) 11/12/18 20:32 < 2.0 mg/dL (<2.0) 11/12/18 20:32 Ur Leukocyte Esterase Neg (Negative) 11/12/18 20:32 < 1.0 /HPF (0.0-6.0) 11/12/18 20:32 2.0 /HPF (0.0-6.0) 11/12/18 20:32 101.2 mg/dL (0.1-20.0) H 11/13/18 19:00 28 mmol/L 11/13/18 19:00 36 mg/dL (5-11.8) H 11/13/18 19:00 Salicylates < 0.3 mg/dL (2.8-20.0) L 11/12/18 19:28 Presumptive negative 11/12/18 20:32 Presumptive negative 11/12/18 20:32 Acetaminophen < 5.0 ug/mL (10.0-30.0) L 11/12/18 19:28 Ur Barbiturates Screen Presumptive negative 11/12/18 20:32 Ur Phencyclidine Scrn Presumptive negative 11/12/18 20:32 Ur Amphetamines Screen Presumptive negative 11/12/18 20:32 U Benzodiazepines Scrn Presumptive negative 11/12/18 20:32 Presumptive negative 11/12/18 20:32 U Marijuana (THC) Screen Presumptive negative 11/12/18 20:32 Disclamer 11/12/18 20:32 Plasma/Serum Alcohol < 0.01 % (0-0.07) 11/12/18 19:28 Active Medications - Current Medications Current Medications: Generic Name Dose Route Start Last Admin Trade Name Freq PRN Reason Stop Dose Admin Acetaminophen 650 mg 11/13/18 00:50 Tylenol PO Q4H PRN Pain MILD(1-3)/Fever >100.5/CORTES Hydralazine HCl 10 mg 11/16/18 10:00 11/16/18 10:20 Apresoline IV 10 mg Q4HR PRN Administration Blood Pressure Ondansetron HCl 4 mg 11/13/18 00:50 Zofran IV Q4H PRN Nausea And Vomiting Pantoprazole Sodium 40 mg 11/15/18 10:00 11/18/18 11:03 Protonix PO 40 mg QDAY EMERSON Administration Sodium Chloride 10 ml 11/13/18 10:00 11/18/18 11:04 Sodium Chloride Flush Syringe 10 Ml IV 10 ml BID EMERSON Administration Sodium Chloride 10 ml 11/13/18 00:50 Sodium Chloride Flush Syringe 10 Ml IV PRN PRN LINE FLUSH Nutrition/Malnutrition Assess - Dietary Evaluation Nutrition/Malnutrition Findings: Nutrition Notes Start: 11/13/18 12:07 Freq: Status: Active Protocol: Document 11/16/18 17:45 RM (Rec: 11/16/18 17:54 RM [id number]) Nutrition Notes Initial or Follow up Reassessment Current Diagnosis Acute Kidney Injury,CKD(stage I-IV),Hypertension,Stroke Current Diet Pureed Labs/Tests Reviewed Pertinent Medications Reviewed Height 6 ft Weight 58 kg [place] Body Weight (kg) 80.90 BMI 17.3 Weight change and time frame Current wt obtained from [facility] Subjective/Other Information Screened for low BMI. Pt already being followed. Diet advanced to pureed today. Confirmed wt change on bedscale. Previous recorded wt likely inaccurate. Noted temporal wasting. Burn Absent Trauma Absent #2 Nutrition Diagnosis Malnutrition Etiology CVA As Evidenced by Signs and Symptoms BMI 18.3, temporal wasting #1 Nutrition Diagnosis Inadequate oral intake Diagnosis Progress(for reassessment Continues documentation) Is patient on ventilator? No Is Patient Ambulatory and/or Out of Bed No REE-([facility]-confined to bed) 1641.912 Kcal/Kg value to use for calculation 34 Approximate Energy Requirements Using 1972 kcal/Kg Calculation Used for Recommendations Kcal/kg Additional Notes Protein needs are 84-101g (1-1 .2g/kg) Fluid needs are 1ml/kcal Nutrition Intervention Change Diet Order: Pureed, Renal Add Supplement/Snack (indicate name/kcal Ensure Clear 1 daily /protein ) Provides kCal: 240 Provides Protein (gm) 8 Goal #1 Meet at least 75% of calorie and protein needs via PO and ONS intakes Anticipated Discharge Needs: Unable to determine at this time Follow-Up By: 11/19/18 Additional Comments Follow for PO and ONS intakes
--- NOTE | 2018-11-18 11:34 | Progress Note ---
Subjective Principal diagnosis: occult +stool, anemia Interval history: Patient was seen today for follow-up of multiple renal related issues resting comfortably in bed He wants to go home Events of 24 hours vitals labs intake output medications were reviewed Past medical history: Reviewed Family history: Reviewed Social history: Reviewed Allergies: Reviewed Physical examination: Vitals: Reviewed HEENT: No pallor or icterus oral mucosa moist Neck: Supple no JVD no thyromegaly Chest: Bilateral clear to auscultation anteriorly Heart: Regular rate and rhythm S1-S2 heard no S3-S4 Abdomen: Soft nontender no voluntary guarding rigidity rebound Extremity: Dry skin less than 1+ peripheral edema Psychiatric: No evidence of agitation and aggression noted Dermatology: No petechial rashes Labs and x-rays: Reviewed from today Assessment and plan Acute renal failure: Creatinine around 1.6 as of yesterday Mild metabolic acidosis will place him on sodium bicarbonate tablets Creatinine kinases 1255 patient will need follow-up on that, likely this was resulting from dehydration and low-grade rhabdomyolysis, status post fall Protein creatinine ratio 36/101 low-grade proteinuria We'll need follow-up appointment office upon discharge Anemia multifactorial Baseline creatinine 1.9 early November 2018 GI bleed noted to have heme positive stools, pelvic fracture, abnormal cardiac enzyme, atrial fibrillation, abdominal aortic aneurysm: Being followed by primary team Continue with hydration and monitor renal function Low-grade rhabdomyolysis to monitor and follow Metabolic acidosis to monitor and follow We'll continue to follow and make recommendation for renal standpoint Objective - Vital Signs Vital signs: Vital Signs - 12hr 11/18/18 11/18/18 11/18/18 00:08 00:09 04:43 Temperature 100.5 F H 99.6 F Pulse Rate 76 71 Respiratory 20 20 Rate Blood Pressure 147/63 Blood Pressure 174/71 [Left] O2 Sat by Pulse 94 98 Oximetry 11/18/18 07:53 Temperature 98.4 F Pulse Rate 80 Respiratory 18 Rate Blood Pressure 147/68 Blood Pressure [Left] O2 Sat by Pulse 97 Oximetry - Lab 11/16/18 05:15 11/17/18 12:13 Most recent lab results Calcium 8.8 mg/dL (8.4-10.2) 11/17/18 12:13 Magnesium 2.80 mg/dL (1.7-2.3) H 11/12/18 19:28 101.2 mg/dL (0.1-20.0) H 11/13/18 19:00 28 mmol/L 11/13/18 19:00 36 mg/dL (5-11.8) H 11/13/18 19:00 Medications & Allergies - Medications Allergies/Adverse Reactions: Allergies No Known Allergies Allergy (Verified 11/12/18 22:27) Active Medications: Generic Name Dose Route Start Last Admin Trade Name Freq PRN Reason Stop Dose Admin Acetaminophen 650 mg 11/13/18 00:50 Tylenol PO Q4H PRN Pain MILD(1-3)/Fever >100.5/CORTES Hydralazine HCl 10 mg 11/16/18 10:00 11/16/18 10:20 Apresoline IV 10 mg Q4HR PRN Administration Blood Pressure Ondansetron HCl 4 mg 11/13/18 00:50 Zofran IV Q4H PRN Nausea And Vomiting Pantoprazole Sodium 40 mg 11/15/18 10:00 11/18/18 11:03 Protonix PO 40 mg QDAY EMERSON Administration Sodium Chloride 10 ml 11/13/18 10:00 11/18/18 11:04 Sodium Chloride Flush Syringe 10 Ml IV 10 ml BID EMERSON Administration Sodium Chloride 10 ml 11/13/18 00:50 Sodium Chloride Flush Syringe 10 Ml IV PRN PRN LINE FLUSH
[2018-11-18] MEDS: SODIUM BICARBONATE PO SCH ×2 (14:11→22:13)
[2018-11-19] MEDS: SODIUM BICARBONATE PO SCH ×2 (09:15→21:41)
[2018-11-19] MEDS: PROTONIX PO SCH (09:15)
[2018-11-19] MEDS: SODIUM CHLORIDE FLUSH SYRINGE 10 ML IV SCH ×2 (09:27→21:41)
--- NOTE | 2018-11-19 11:23 | Progress Note ---
Assessment and Plan Assessment and plan: GI bleed. GI following. Patient with no active signs of GI bleeding overnight or this am per nursing. GI plans to evaluate with EGD and colonoscopy as an outpatient. Patient refuses colon prep previously and is currently refusing procedures. No POA available. Continue PPI Anemia. Continue to monitor H&H and transfuse for hemoglobin less than 7. Acute on chronic renal insufficiency. Etiology likely secondary to acute kidney injury from vasomotor nephropathy/dehydration. Creatinine continues to improve. Nephrology following Pelvic fracture. Orthopedics recommends passive range of motion. Physical therapy following. Abnormal cardiac enzymes. No reports of chest pain. Etiology likely secondary to renal insufficiency. Mild rhabdomyolysis. Continue IV fluids. F/U CK A. fib. Rate currently controlled. Patient was reportedly on anticoagulation at home. No meds were initiated secondary to GI bleed as noted above. Acute hypoxic respiratory failure. Continue O2 to maintain sats greater or 92%. Abdominal aortic aneurysm 3.4 cm. Outpatient vascular follow-up. Disposition. Await PT recommendations. History Interval history: 73-year-old male history of A. fib, CVA, chronic kidney disease, hypertension was brought to the emergency room for evaluation because of a fall Hospitalist Physical - Constitutional Vitals: Temp Pulse Resp BP Pulse Ox 98.4 F 70 18 147/62 96 11/19/18 11:04 11/19/18 11:04 11/19/18 11:04 11/19/18 11:04 11/19/18 11:04 General appearance: Present: no acute distress, well-nourished - EENT Eyes: Present: PERRL, EOM intact ENT: hearing intact, clear oral mucosa, dentition normal - Neck Neck: Present: supple, normal ROM - Respiratory Respiratory effort: normal Respiratory: bilateral: CTA - Cardiovascular Rhythm: regular Heart Sounds: Present: S1 & S2. Absent: gallop, rub - Extremities Extremities: no ischemia, No edema, Full ROM - Abdominal General gastrointestinal: soft, non-tender, non-distended, normal bowel sounds - Integumentary Integumentary: Present: clear, warm, dry - Neurologic Neurologic: CNII-XII intact, moves all extremities Results - Labs CBC & Chem 7: 11/16/18 05:15 11/17/18 12:13 Labs: Laboratory Last Values WBC 7.3 K/mm3 (4.5-11.0) 11/15/18 04:16 RBC 2.97 M/mm3 (3.65-5.03) L 11/15/18 04:16 Hgb 10.2 gm/dl (11.8-15.2) L 11/16/18 05:15 Hct 28.8 % (35.5-45.6) L 11/16/18 05:15 MCV 89 fl (84-94) 11/15/18 04:16 MCH 32 pg (28-32) 11/15/18 04:16 MCHC 36 % (32-34) H 11/15/18 04:16 RDW 15.0 % (13.2-15.2) 11/15/18 04:16 Plt Count 216 K/mm3 (140-440) 11/15/18 04:16 Lymph % (Auto) 16.2 % (13.4-35.0) 11/15/18 04:16 [place] % (Auto) 8.3 % (0.0-7.3) H 11/15/18 04:16 Eos % (Auto) 1.1 % (0.0-4.3) 11/15/18 04:16 Baso % (Auto) 0.3 % (0.0-1.8) 11/15/18 04:16 Lymph # 1.2 K/mm3 (1.2-5.4) 11/15/18 04:16 [place] # 0.6 K/mm3 (0.0-0.8) 11/15/18 04:16 Eos # 0.1 K/mm3 (0.0-0.4) 11/15/18 04:16 Baso # 0.0 K/mm3 (0.0-0.1) 11/15/18 04:16 Seg Neutrophils % 74.1 % (40.0-70.0) H 11/15/18 04:16 Seg Neutrophils # 5.4 K/mm3 (1.8-7.7) 11/15/18 04:16 PT 14.2 Sec. (12.2-14.9) 11/16/18 05:15 INR 1.13 (0.87-1.13) 11/16/18 05:15 APTT 28.1 Sec. (24.2-36.6) 11/12/18 19:28 Sodium 135 mmol/L (137-145) L 11/17/18 12:13 Potassium 3.9 mmol/L (3.6-5.0) 11/17/18 12:13 Chloride 99.3 mmol/L (98-107) 11/17/18 12:13 Carbon Dioxide 21 mmol/L (22-30) L 11/17/18 12:13 19 mmol/L 11/17/18 12:13 BUN 27 mg/dL (9-20) H 11/17/18 12:13 1.6 mg/dL (0.8-1.5) H 11/17/18 12:13 Estimated GFR 52 ml/min 11/17/18 12:13 17 % 11/17/18 12:13 Glucose 205 mg/dL (75-100) H 11/17/18 12:13 POC Glucose 287 (70-105) H 11/12/18 20:18 321 Mosm/kg 11/13/18 10:40 7.1 mg/dL (3.5-7.6) 11/13/18 10:40 Calcium 8.8 mg/dL (8.4-10.2) 11/17/18 12:13 Magnesium 2.80 mg/dL (1.7-2.3) H 11/12/18 19:28 Iron 36 ug/dL (49-181) L 11/14/18 05:50 TIBC 153 mcg/dL (250-450) L 11/14/18 05:50 896.0 ng/mL (13.0-400.0) H 11/14/18 05:50 1.70 mg/dL (0.1-1.2) H 11/12/18 19:28 AST 46 units/L (5-40) H 11/12/18 19:28 ALT 52 units/L (7-56) 11/12/18 19:28 95 units/L (35-129) 11/12/18 19:28 37.0 umol/L (25-60) 11/12/18 19:28 1255 units/L (55-170) H 11/15/18 04:16 CK-MB (CK-2) 17.0 ng/mL (0.0-4.0) H 11/13/18 14:54 CK-MB (CK-2) Rel Index 1.2 (0-4) 11/13/18 14:54 0.049 ng/mL (0.00-0.029) H D 11/13/18 14:54 7.2 g/dL (6.3-8.2) 11/12/18 19:28 3.3 g/dL (3.9-5) L 11/12/18 19:28 0.8 % 11/12/18 19:28 Triglycerides 95 mg/dL (2-149) 11/12/18 19:28 Cholesterol 103 mg/dL (50-199) 11/12/18 19:28 58 mg/dL (50-130) 11/12/18 19:28 44 mg/dL (40-59) 11/12/18 19:28 2.34 % 11/12/18 19:28 Yellow (Yellow) 11/12/18 20:32 Clear (Clear) 11/12/18 20:32 5.0 (5.0-7.0) 11/12/18 20:32 Ur Specific [place] 1.017 (1.003-1.030) 11/12/18 20:32 30 mg/dl mg/dL (Negative) 11/12/18 20:32 >=500 mg/dL (Negative) 11/12/18 20:32 Neg mg/dL (Negative) 11/12/18 20:32 Mod (Negative) 11/12/18 20:32 Neg (Negative) 11/12/18 20:32 Neg (Negative) 11/12/18 20:32 < 2.0 mg/dL (<2.0) 11/12/18 20:32 Ur Leukocyte Esterase Neg (Negative) 11/12/18 20:32 < 1.0 /HPF (0.0-6.0) 11/12/18 20:32 2.0 /HPF (0.0-6.0) 11/12/18 20:32 101.2 mg/dL (0.1-20.0) H 11/13/18 19:00 28 mmol/L 11/13/18 19:00 36 mg/dL (5-11.8) H 11/13/18 19:00 Salicylates < 0.3 mg/dL (2.8-20.0) L 11/12/18 19:28 Presumptive negative 11/12/18 20:32 Presumptive negative 11/12/18 20:32 Acetaminophen < 5.0 ug/mL (10.0-30.0) L 11/12/18 19:28 Ur Barbiturates Screen Presumptive negative 11/12/18 20:32 Ur Phencyclidine Scrn Presumptive negative 11/12/18 20:32 Ur Amphetamines Screen Presumptive negative 11/12/18 20:32 U Benzodiazepines Scrn Presumptive negative 11/12/18 20:32 Presumptive negative 11/12/18 20:32 U Marijuana (THC) Screen Presumptive negative 11/12/18 20:32 Disclamer 11/12/18 20:32 Plasma/Serum Alcohol < 0.01 % (0-0.07) 11/12/18 19:28 Active Medications - Current Medications Current Medications: Generic Name Dose Route Start Last Admin Trade Name Freq PRN Reason Stop Dose Admin Acetaminophen 650 mg 11/13/18 00:50 Tylenol PO Q4H PRN Pain MILD(1-3)/Fever >100.5/CORTES Hydralazine HCl 10 mg 11/16/18 10:00 11/16/18 10:20 Apresoline IV 10 mg Q4HR PRN Administration Blood Pressure Ondansetron HCl 4 mg 11/13/18 00:50 Zofran IV Q4H PRN Nausea And Vomiting Pantoprazole Sodium 40 mg 11/15/18 10:00 11/19/18 09:15 Protonix PO 40 mg QDAY EMERSON Administration Sodium Bicarbonate 1,300 mg 11/18/18 12:00 11/19/18 09:15 Sodium Bicarbonate PO 1,300 mg BID EMERSON Administration Sodium Chloride 10 ml 11/13/18 10:00 11/19/18 09:27 Sodium Chloride Flush Syringe 10 Ml IV 10 ml BID EMERSON Administration Sodium Chloride 10 ml 11/13/18 00:50 Sodium Chloride Flush Syringe 10 Ml IV PRN PRN LINE FLUSH Nutrition/Malnutrition Assess - Dietary Evaluation Nutrition/Malnutrition Findings: Nutrition Notes Start: 11/13/18 12:07 Freq: Status: Active Protocol: Document 11/16/18 17:45 RM (Rec: 11/16/18 17:54 RM [id number]) Nutrition Notes Initial or Follow up Reassessment Current Diagnosis Acute Kidney Injury,CKD(stage I-IV),Hypertension,Stroke Current Diet Pureed Labs/Tests Reviewed Pertinent Medications Reviewed Height 6 ft Weight 58 kg [place] Body Weight (kg) 80.90 BMI 17.3 Weight change and time frame Current wt obtained from bedscale Subjective/Other Information Screened for low BMI. Pt already being followed. Diet advanced to pureed today. Confirmed wt change on bedscale. Previous recorded wt likely inaccurate. Noted temporal wasting. Burn Absent Trauma Absent #2 Nutrition Diagnosis Malnutrition Etiology CVA As Evidenced by Signs and Symptoms BMI 18.3, temporal wasting #1 Nutrition Diagnosis Inadequate oral intake Diagnosis Progress(for reassessment Continues documentation) Is patient on ventilator? No Is Patient Ambulatory and/or Out of Bed No REE-([place]-confined to bed) 1641.912 Kcal/Kg value to use for calculation 34 Approximate Energy Requirements Using 1972 kcal/Kg Calculation Used for Recommendations Kcal/kg Additional Notes Protein needs are 84-101g (1-1 .2g/kg) Fluid needs are 1ml/kcal Nutrition Intervention Change Diet Order: Pureed, Renal Add Supplement/Snack (indicate name/kcal Ensure Clear 1 daily /protein ) Provides kCal: 240 Provides Protein (gm) 8 Goal #1 Meet at least 75% of calorie and protein needs via PO and ONS intakes Anticipated Discharge Needs: Unable to determine at this time Follow-Up By: 11/19/18 Additional Comments Follow for PO and ONS intakes
--- NOTE | 2018-11-19 12:43 | Progress Note ---
Subjective Principal diagnosis: occult +stool, anemia Interval history: Patient was seen today for follow-up of multiple renal related issues no acute distressed renal function stable very poor historian Events of 24 hours vitals labs intake output medications were reviewed Past medical history: Reviewed Family history: Reviewed Social history: Reviewed Allergies: Reviewed Physical examination: Vitals: Reviewed HEENT: No pallor or icterus oral mucosa moist Neck: Supple no JVD no thyromegaly Chest: Bilateral clear to auscultation anteriorly Heart: Regular rate and rhythm S1-S2 heard no S3-S4 Abdomen: Soft nontender no voluntary guarding rigidity rebound Extremity: Dry skin trace edema Psychiatric: No evidence of agitation and aggression noted Dermatology: No petechial rashes Labs and x-rays: Reviewed from today Assessment and plan Acute renal failure: improved renal function much better than his baseline 1.9 in November 2018 earlier this month patient mostly appeared to be prerenal Metabolic acidosis on sodium bicarbonate tablet Low-grade rhabdomyolysis resulting from dehydration as well as fall needs monitoring and follow-up Baseline creatinine 1.9 early November 2018 GI bleed noted to have heme positive stools, pelvic fracture, abnormal cardiac enzyme, atrial fibrillation, abdominal aortic aneurysm: Being followed by primary team Continue with hydration and monitor renal function Low-grade rhabdomyolysis to monitor and follow Metabolic acidosis to monitor and follow We'll continue to follow and make recommendation for renal standpoint Objective - Vital Signs Vital signs: Vital Signs - 12hr 11/19/18 11/19/18 11/19/18 04:05 04:06 07:44 Temperature 99.5 F 98.8 F Pulse Rate 70 61 Respiratory 20 16 Rate Blood Pressure 156/69 169/67 O2 Sat by Pulse 93 94 Oximetry 11/19/18 11:04 Temperature 98.4 F Pulse Rate 70 Respiratory 18 Rate Blood Pressure 147/62 O2 Sat by Pulse 96 Oximetry - Lab 11/16/18 05:15 11/19/18 12:39 Most recent lab results Calcium 8.8 mg/dL (8.4-10.2) 11/17/18 12:13 Magnesium 2.80 mg/dL (1.7-2.3) H 11/12/18 19:28 101.2 mg/dL (0.1-20.0) H 11/13/18 19:00 28 mmol/L 11/13/18 19:00 36 mg/dL (5-11.8) H 11/13/18 19:00 Medications & Allergies - Medications Allergies/Adverse Reactions: Allergies No Known Allergies Allergy (Verified 11/12/18 22:27) Active Medications: Generic Name Dose Route Start Last Admin Trade Name Freq PRN Reason Stop Dose Admin Acetaminophen 650 mg 11/13/18 00:50 Tylenol PO Q4H PRN Pain MILD(1-3)/Fever >100.5/CORTES Hydralazine HCl 10 mg 11/16/18 10:00 11/16/18 10:20 Apresoline IV 10 mg Q4HR PRN Administration Blood Pressure Ondansetron HCl 4 mg 11/13/18 00:50 Zofran IV Q4H PRN Nausea And Vomiting Pantoprazole Sodium 40 mg 11/15/18 10:00 11/19/18 09:15 Protonix PO 40 mg QDAY EMERSON Administration Sodium Bicarbonate 1,300 mg 11/18/18 12:00 11/19/18 09:15 Sodium Bicarbonate PO 1,300 mg BID EMERSON Administration Sodium Chloride 10 ml 11/13/18 10:00 11/19/18 09:27 Sodium Chloride Flush Syringe 10 Ml IV 10 ml BID EMERSON Administration Sodium Chloride 10 ml 11/13/18 00:50 Sodium Chloride Flush Syringe 10 Ml IV PRN PRN LINE FLUSH
[2018-11-19 13:35] LABS: Calcium 8.6 mg/dL (8.4-10.2)
[2018-11-20 05:12] LABS: Basophils % (Auto) 0.2 % (0.0-1.8); Eosinophils # (Auto) 0.1 K/mm3 (0.0-0.4); Eosinophils % (Auto) 1.3 % (0.0-4.3); Hematocrit 26.8 % (35.5-45.6); Hemoglobin 9.2 gm/dl (11.8-15.2); Lymphocytes % (Auto) 13.4 % (13.4-35.0); Mean Corpuscular HGB Conc 34 % (32-34); Mean Corpuscular Volume 90 fl (84-94); Monocytes # (Auto) 0.7 K/mm3 (0.0-0.8); Monocytes % (Auto) 10.3 % (0.0-7.3); Platelet Count 236 K/mm3 (140-440); Red Blood Count 2.98 M/mm3 (3.65-5.03); Red Cell Distribution Width 15.4 % (13.2-15.2)
[2018-11-20 05:31] LABS: Calcium 8.5 mg/dL (8.4-10.2)
--- NOTE | 2018-11-20 09:32 | Progress Note ---
Assessment and Plan Assessment: * Nonoliguric SAMARA secondary to prerenal azotemia on stage III chronic kidney disease --Renal u/s: diffusely echogenic kidneys * Pelvic fracture (nondisplaced) s/p fall * Anemia w/ heme + stool * Metabolic acidosis * Hyponatremia * Hypertension * Abdominal aorta aneurysm * Rhabdomyolysis, mild Plan: * Renal function is stable. Continue conservative management * Hyponatremia noted - medications/IVF reviewed, follow for now * Continue NaBicarb tabs - acidosis improved * Ortho recommendations noted - WBAT PT * GI following - patient has refused colonoscopy/EGD * Dose medications for renal function * Avoid potential nephrotoxins Subjective Date of service: 11/20/18 Principal diagnosis: occult +stool, anemia Interval history: Patient has no complaints today Objective - Vital Signs Vital signs: Vital Signs - 12hr 11/20/18 11/20/18 11/20/18 00:00 04:00 08:07 Temperature 98.0 F 98.5 F 97.9 F Pulse Rate 75 80 65 Respiratory 18 18 18 Rate Blood Pressure 145/69 139/72 144/61 [Left] O2 Sat by Pulse 97 98 98 Oximetry - General Appearance General appearance: well-developed, well-nourished EENT: ATNC Respiratory: Present: Clear to Ascultation Cardiology: regular, S1S2 Gastrointestinal: normal Integumentary: no rash, warm and dry Musculoskeletal: other (no edema) Psychiatric: cooperative - Lab 11/20/18 04:35 11/20/18 04:35 Most recent lab results Calcium 8.5 mg/dL (8.4-10.2) 11/20/18 04:35 Magnesium 2.80 mg/dL (1.7-2.3) H 11/12/18 19:28 101.2 mg/dL (0.1-20.0) H 11/13/18 19:00 28 mmol/L 11/13/18 19:00 36 mg/dL (5-11.8) H 11/13/18 19:00 Medications & Allergies - Medications Allergies/Adverse Reactions: Allergies No Known Allergies Allergy (Verified 11/12/18 22:27) Active Medications: Generic Name Dose Route Start Last Admin Trade Name Freq PRN Reason Stop Dose Admin Acetaminophen 650 mg 11/13/18 00:50 Tylenol PO Q4H PRN Pain MILD(1-3)/Fever >100.5/CORTES Hydralazine HCl 10 mg 11/16/18 10:00 11/16/18 10:20 Apresoline IV 10 mg Q4HR PRN Administration Blood Pressure Ondansetron HCl 4 mg 11/13/18 00:50 Zofran IV Q4H PRN Nausea And Vomiting Pantoprazole Sodium 40 mg 11/15/18 10:00 11/19/18 09:15 Protonix PO 40 mg QDAY EMERSON Administration Sodium Bicarbonate 1,300 mg 11/18/18 12:00 11/19/18 21:41 Sodium Bicarbonate PO 1,300 mg BID EMERSON Administration Sodium Chloride 10 ml 11/13/18 10:00 11/19/18 21:41 Sodium Chloride Flush Syringe 10 Ml IV 10 ml BID EMERSON Administration Sodium Chloride 10 ml 11/13/18 00:50 Sodium Chloride Flush Syringe 10 Ml IV PRN PRN LINE FLUSH
[2018-11-20] MEDS: PROTONIX PO SCH (10:03)
[2018-11-20] MEDS: SODIUM BICARBONATE PO SCH ×2 (10:03→21:08)
[2018-11-20] MEDS: SODIUM CHLORIDE FLUSH SYRINGE 10 ML IV SCH ×2 (10:04→21:08)
--- NOTE | 2018-11-20 17:46 | Progress Note ---
Assessment and Plan Assessment and plan: GI bleed. GI following. Patient with no active signs of GI bleeding. GI plans to evaluate with EGD and colonoscopy as an outpatient. Patient refuses colon prep previously and is currently refusing procedures. No POA available. Continue PPI Anemia. Continue to monitor H&H and transfuse for hemoglobin less than 7. Acute on chronic renal insufficiency. Etiology likely secondary to acute kidney injury from vasomotor nephropathy/dehydration. Creatinine continues to improve. Nephrology following Pelvic fracture. Orthopedics recommends passive range of motion. Physical therapy following. Abnormal cardiac enzymes. No reports of chest pain. Etiology likely secondary to renal insufficiency. Mild rhabdomyolysis. Continue IV fluids. F/U CK A. fib. Rate currently controlled. Patient was reportedly on anticoagulation at home. No meds were initiated secondary to GI bleed as noted above. Acute hypoxic respiratory failure. Continue O2 to maintain sats greater or 92%. Abdominal aortic aneurysm 3.4 cm. Outpatient vascular follow-up. Disposition. Await PT recommendations. History Interval history: Gen weakness Hospitalist Physical - Physical exam Narrative exam: Gen: Not in acute distress, lying in bed, malnourished HEENT: Normocephalic, atraumatic Neck: supple, no JVD Heart: S1 and S2 reg, no murmurs, rubs or gallop Lungs: Clear, no crackles, no rhonchi Abd: soft, non tender, non distended, normal BS, Ext: No edema, no clubbing, no cyanosis Neuro: Lethargic - Constitutional Vitals: Temp Pulse Resp BP Pulse Ox 97.9 F 61 18 170/63 97 11/20/18 15:43 11/20/18 15:43 11/20/18 15:43 11/20/18 15:43 11/20/18 15:43 General appearance: Present: no acute distress, well-nourished Results - Labs CBC & Chem 7: 11/20/18 04:35 11/20/18 04:35 Labs: Laboratory Last Values WBC 7.3 K/mm3 (4.5-11.0) 11/20/18 04:35 RBC 2.98 M/mm3 (3.65-5.03) L 11/20/18 04:35 Hgb 9.2 gm/dl (11.8-15.2) L 11/20/18 04:35 Hct 26.8 % (35.5-45.6) L 11/20/18 04:35 MCV 90 fl (84-94) 11/20/18 04:35 MCH 31 pg (28-32) 11/20/18 04:35 MCHC 34 % (32-34) 11/20/18 04:35 RDW 15.4 % (13.2-15.2) H 11/20/18 04:35 Plt Count 236 K/mm3 (140-440) 11/20/18 04:35 Lymph % (Auto) 13.4 % (13.4-35.0) 11/20/18 04:35 [place] % (Auto) 10.3 % (0.0-7.3) H 11/20/18 04:35 Eos % (Auto) 1.3 % (0.0-4.3) 11/20/18 04:35 Baso % (Auto) 0.2 % (0.0-1.8) 11/20/18 04:35 Lymph # 1.0 K/mm3 (1.2-5.4) L 11/20/18 04:35 [place] # 0.7 K/mm3 (0.0-0.8) 11/20/18 04:35 Eos # 0.1 K/mm3 (0.0-0.4) 11/20/18 04:35 Baso # 0.0 K/mm3 (0.0-0.1) 11/20/18 04:35 Seg Neutrophils % 74.8 % (40.0-70.0) H 11/20/18 04:35 Seg Neutrophils # 5.4 K/mm3 (1.8-7.7) 11/20/18 04:35 PT 14.2 Sec. (12.2-14.9) 11/16/18 05:15 INR 1.13 (0.87-1.13) 11/16/18 05:15 APTT 28.1 Sec. (24.2-36.6) 11/12/18 19:28 Sodium 131 mmol/L (137-145) L 11/20/18 04:35 Potassium 3.5 mmol/L (3.6-5.0) L 11/20/18 04:35 Chloride 96.1 mmol/L (98-107) L 11/20/18 04:35 Carbon Dioxide 22 mmol/L (22-30) 11/20/18 04:35 16 mmol/L 11/20/18 04:35 BUN 21 mg/dL (9-20) H 11/20/18 04:35 1.6 mg/dL (0.8-1.5) H 11/20/18 04:35 Estimated GFR 52 ml/min 11/20/18 04:35 13 % 11/20/18 04:35 Glucose 171 mg/dL (75-100) H 11/20/18 04:35 POC Glucose 287 (70-105) H 11/12/18 20:18 321 Mosm/kg 11/13/18 10:40 7.1 mg/dL (3.5-7.6) 11/13/18 10:40 Calcium 8.5 mg/dL (8.4-10.2) 11/20/18 04:35 Magnesium 2.80 mg/dL (1.7-2.3) H 11/12/18 19:28 Iron 36 ug/dL (49-181) L 11/14/18 05:50 TIBC 153 mcg/dL (250-450) L 11/14/18 05:50 896.0 ng/mL (13.0-400.0) H 11/14/18 05:50 1.70 mg/dL (0.1-1.2) H 11/12/18 19:28 AST 46 units/L (5-40) H 11/12/18 19:28 ALT 52 units/L (7-56) 11/12/18 19:28 95 units/L (35-129) 11/12/18 19:28 37.0 umol/L (25-60) 11/12/18 19:28 1255 units/L (55-170) H 11/15/18 04:16 CK-MB (CK-2) 17.0 ng/mL (0.0-4.0) H 11/13/18 14:54 CK-MB (CK-2) Rel Index 1.2 (0-4) 11/13/18 14:54 0.049 ng/mL (0.00-0.029) H D 11/13/18 14:54 7.2 g/dL (6.3-8.2) 11/12/18 19:28 3.3 g/dL (3.9-5) L 11/12/18 19:28 0.8 % 11/12/18 19:28 Triglycerides 95 mg/dL (2-149) 11/12/18 19:28 Cholesterol 103 mg/dL (50-199) 11/12/18 19:28 58 mg/dL (50-130) 11/12/18 19:28 44 mg/dL (40-59) 11/12/18 19:28 2.34 % 11/12/18 19:28 Yellow (Yellow) 11/12/18 20:32 Clear (Clear) 11/12/18 20:32 5.0 (5.0-7.0) 11/12/18 20:32 Ur Specific [place] 1.017 (1.003-1.030) 11/12/18 20:32 30 mg/dl mg/dL (Negative) 11/12/18 20:32 >=500 mg/dL (Negative) 11/12/18 20:32 Neg mg/dL (Negative) 11/12/18 20:32 Mod (Negative) 11/12/18 20:32 Neg (Negative) 11/12/18 20:32 Neg (Negative) 11/12/18 20:32 < 2.0 mg/dL (<2.0) 11/12/18 20:32 Ur Leukocyte Esterase Neg (Negative) 11/12/18 20:32 < 1.0 /HPF (0.0-6.0) 11/12/18 20:32 2.0 /HPF (0.0-6.0) 11/12/18 20:32 101.2 mg/dL (0.1-20.0) H 11/13/18 19:00 28 mmol/L 11/13/18 19:00 36 mg/dL (5-11.8) H 11/13/18 19:00 Salicylates < 0.3 mg/dL (2.8-20.0) L 11/12/18 19:28 Presumptive negative 11/12/18 20:32 Presumptive negative 11/12/18 20:32 Acetaminophen < 5.0 ug/mL (10.0-30.0) L 11/12/18 19:28 Ur Barbiturates Screen Presumptive negative 11/12/18 20:32 Ur Phencyclidine Scrn Presumptive negative 11/12/18 20:32 Ur Amphetamines Screen Presumptive negative 11/12/18 20:32 U Benzodiazepines Scrn Presumptive negative 11/12/18 20:32 Presumptive negative 11/12/18 20:32 U Marijuana (THC) Screen Presumptive negative 11/12/18 20:32 Disclamer 11/12/18 20:32 Plasma/Serum Alcohol < 0.01 % (0-0.07) 11/12/18 19:28 Active Medications - Current Medications Current Medications: Generic Name Dose Route Start Last Admin Trade Name Freq PRN Reason Stop Dose Admin Acetaminophen 650 mg 11/13/18 00:50 Tylenol PO Q4H PRN Pain MILD(1-3)/Fever >100.5/CORTES Hydralazine HCl 10 mg 11/16/18 10:00 11/16/18 10:20 Apresoline IV 10 mg Q4HR PRN Administration Blood Pressure Ondansetron HCl 4 mg 11/13/18 00:50 Zofran IV Q4H PRN Nausea And Vomiting Pantoprazole Sodium 40 mg 11/15/18 10:00 11/20/18 10:03 Protonix PO 40 mg QDAY EMERSON Administration Sodium Bicarbonate 1,300 mg 11/18/18 12:00 11/20/18 10:03 Sodium Bicarbonate PO 1,300 mg BID EMERSON Administration Sodium Chloride 10 ml 11/13/18 10:00 11/20/18 10:04 Sodium Chloride Flush Syringe 10 Ml IV 10 ml BID EMERSON Administration Sodium Chloride 10 ml 11/13/18 00:50 Sodium Chloride Flush Syringe 10 Ml IV PRN PRN LINE FLUSH Nutrition/Malnutrition Assess - Dietary Evaluation Nutrition/Malnutrition Findings: Nutrition Notes Start: 11/13/18 12:07 Freq: Status: Active Protocol: Document 11/19/18 15:19 OH (Rec: 11/19/18 15:30 OH [id number]) Nutrition Notes Initial or Follow up Reassessment Current Diet Pureed Labs/Tests Na 134 ALB 3.3 k+ 3.4 Pertinent Medications Reviewed Height 6 ft Weight 60.9 kg [place] Body Weight (kg) 80.90 BMI 18.1 Weight change and time frame RD weighed pt in bed. Subjective/Other Information Pt. reports he is eating his meals. Per ST pt is to continue with pureed and thin liquids. Pt w/o teeth. Pt. requesting to know when he can go home. Per notes pt resides @ [facility]. Percent of energy/protein needs met: 50/50 Burn Absent Trauma Absent Difficulty In Chewing Current % PO Poor (25-49%) #2 Nutrition Diagnosis Malnutrition As Evidenced by Signs and Symptoms BMI 18.3, temporal wasting #1 Nutrition Diagnosis Inadequate oral intake Diagnosis Progress(for reassessment Continues documentation) Is patient on ventilator? No Is Patient Ambulatory and/or Out of Bed No REE-([place]-St. or-confined to bed) 1676.676 Kcal/Kg value to use for calculation 40 Approximate Energy Requirements Using 2436 kcal/Kg Calculation Used for Recommendations Kcal/kg Additional Notes Protein needs are 84-101g (1-1 .2g/kg) Fluid needs are 1ml/kcal Nutrition Intervention Change Diet Order: Pureed, Renal Add Supplement/Snack (indicate name/kcal ensure clear bid /protein ) Provides kCal: 480 Provides Protein (gm) 16 Goal #1 Meet at least 75% of calorie and protein needs via PO and ONS intakes Anticipated Discharge Needs: Unable to determine at this time Follow-Up By: 11/22/18 Additional Comments Follow for PO and ONS intakes
[2018-11-21 07:02] LABS: Calcium 8.8 mg/dL (8.4-10.2)
[2018-11-21 07:18] LABS: Hematocrit 26.1 % (35.5-45.6); Hemoglobin 9.1 gm/dl (11.8-15.2); Mean Corpuscular HGB Conc 35 % (32-34); Mean Corpuscular Volume 90 fl (84-94); Platelet Count 258 K/mm3 (140-440); Red Blood Count 2.89 M/mm3 (3.65-5.03); Red Cell Distribution Width 15.1 % (13.2-15.2)
[2018-11-21] MEDS: SODIUM BICARBONATE PO SCH ×2 (09:28→21:33)
[2018-11-21] MEDS: PROTONIX PO SCH (09:28)
[2018-11-21] MEDS: SODIUM CHLORIDE FLUSH SYRINGE 10 ML IV SCH ×2 (09:29→21:34)
--- NOTE | 2018-11-21 15:20 | Progress Note ---
Assessment and Plan Assessment: * Nonoliguric SAMARA secondary to prerenal azotemia on stage III chronic kidney disease --Renal u/s: diffusely echogenic kidneys * Pelvic fracture (nondisplaced) s/p fall * Anemia w/ heme + stool * Metabolic acidosis * Hyponatremia * Hypertension * Abdominal aorta aneurysm * Rhabdomyolysis, mild Plan: * Renal function is stable. Continue conservative management * Will obtain BMP and CK in AM * Start Amlodipine 5mg daily * Hyponatremia noted - medications/IVF reviewed, follow for now * Continue NaBicarb tabs - acidosis improved * Ortho recommendations noted - WBAT PT * GI following - patient has refused colonoscopy/EGD * Dose medications for renal function * Avoid potential nephrotoxins Subjective Date of service: 11/21/18 Principal diagnosis: occult +stool, anemia Interval history: Patient has no complaints. Objective - Vital Signs Vital signs: Vital Signs - 12hr 11/21/18 11/21/18 11/21/18 04:10 08:03 10:00 Temperature 98.2 F 98.4 F Pulse Rate 67 60 Pulse Rate [ 60 Apical] Respiratory 18 18 18 Rate Respiratory 18 Rate [RUE] Blood Pressure 162/71 159/64 O2 Sat by Pulse 96 96 98 Oximetry 11/21/18 11:32 Temperature 97.5 F L Pulse Rate 73 Pulse Rate [ Apical] Respiratory 18 Rate Respiratory Rate [RUE] Blood Pressure 143/61 O2 Sat by Pulse 97 Oximetry - General Appearance General appearance: well-developed EENT: ATNC Respiratory: Present: Clear to Ascultation Cardiology: regular, S1S2 Gastrointestinal: normal, no tenderness, no distended Musculoskeletal: other (no edema) Psychiatric: cooperative - Lab 11/21/18 06:03 11/21/18 06:03 Most recent lab results Calcium 8.8 mg/dL (8.4-10.2) 11/21/18 06:03 Magnesium 2.80 mg/dL (1.7-2.3) H 11/12/18 19:28 101.2 mg/dL (0.1-20.0) H 11/13/18 19:00 28 mmol/L 11/13/18 19:00 36 mg/dL (5-11.8) H 11/13/18 19:00 Medications & Allergies - Medications Allergies/Adverse Reactions: Allergies No Known Allergies Allergy (Verified 11/12/18 22:27) Active Medications: Generic Name Dose Route Start Last Admin Trade Name Freq PRN Reason Stop Dose Admin Acetaminophen 650 mg 11/13/18 00:50 Tylenol PO Q4H PRN Pain MILD(1-3)/Fever >100.5/CORTES Hydralazine HCl 10 mg 11/16/18 10:00 11/16/18 10:20 Apresoline IV 10 mg Q4HR PRN Administration Blood Pressure Ondansetron HCl 4 mg 11/13/18 00:50 Zofran IV Q4H PRN Nausea And Vomiting Pantoprazole Sodium 40 mg 11/15/18 10:00 11/21/18 09:28 Protonix PO 40 mg QDAY EMERSON Administration Sodium Bicarbonate 1,300 mg 11/18/18 12:00 11/21/18 09:28 Sodium Bicarbonate PO 1,300 mg BID EMERSON Administration Sodium Chloride 10 ml 11/13/18 10:00 11/21/18 09:29 Sodium Chloride Flush Syringe 10 Ml IV 10 ml BID EMERSON Administration Sodium Chloride 10 ml 11/13/18 00:50 Sodium Chloride Flush Syringe 10 Ml IV PRN PRN LINE FLUSH
--- NOTE | 2018-11-21 17:43 | Progress Note ---
Assessment and Plan Assessment and plan: GI bleed. GI following. Patient with no active signs of GI bleeding. GI plans to evaluate with EGD and colonoscopy as an outpatient. Patient refuses colon prep previously and is currently refusing procedures. No POA available. Continue PPI Anemia. Continue to monitor H&H and transfuse for hemoglobin less than 7. Acute on chronic renal insufficiency. Etiology likely secondary to acute kidney injury from vasomotor nephropathy/dehydration. Creatinine continues to improve. Nephrology following Pelvic fracture. Orthopedics recommends passive range of motion. Physical therapy following. Abnormal cardiac enzymes. No reports of chest pain. Etiology likely secondary to renal insufficiency. Mild rhabdomyolysis. Continue IV fluids. F/U CK A. fib. Rate currently controlled. Patient was reportedly on anticoagulation at home. No meds were initiated secondary to GI bleed as noted above. Acute hypoxic respiratory failure. Continue O2 to maintain sats greater or 92%. Abdominal aortic aneurysm 3.4 cm. Outpatient vascular follow-up. Disposition. Await PT recommendations. May need placement. discussed with vocational case manager. History Interval history: Gen weakness Hospitalist Physical - Physical exam Narrative exam: Gen: Not in acute distress, lying in bed, malnourished HEENT: Normocephalic, atraumatic Neck: supple, no JVD Heart: S1 and S2 reg, no murmurs, rubs or gallop Lungs: Clear, no crackles, no rhonchi Abd: soft, non tender, non distended, normal BS, Ext: No edema, no clubbing, no cyanosis Neuro: Lethargic - Constitutional Vitals: Temp Pulse Resp BP Pulse Ox 97.9 F 67 18 142/63 99 11/21/18 15:45 11/21/18 15:45 11/21/18 15:45 11/21/18 15:45 11/21/18 15:45 General appearance: Present: no acute distress, cachectic Results - Labs CBC & Chem 7: 11/21/18 06:03 11/21/18 06:03 Labs: Laboratory Last Values WBC 5.6 K/mm3 (4.5-11.0) 11/21/18 06:03 RBC 2.89 M/mm3 (3.65-5.03) L 11/21/18 06:03 Hgb 9.1 gm/dl (11.8-15.2) L 11/21/18 06:03 Hct 26.1 % (35.5-45.6) L 11/21/18 06:03 MCV 90 fl (84-94) 11/21/18 06:03 MCH 31 pg (28-32) 11/21/18 06:03 MCHC 35 % (32-34) H 11/21/18 06:03 RDW 15.1 % (13.2-15.2) 11/21/18 06:03 Plt Count 258 K/mm3 (140-440) 11/21/18 06:03 Lymph % (Auto) 13.4 % (13.4-35.0) 11/20/18 04:35 [place] % (Auto) 10.3 % (0.0-7.3) H 11/20/18 04:35 Eos % (Auto) 1.3 % (0.0-4.3) 11/20/18 04:35 Baso % (Auto) 0.2 % (0.0-1.8) 11/20/18 04:35 Lymph # 1.0 K/mm3 (1.2-5.4) L 11/20/18 04:35 [place] # 0.7 K/mm3 (0.0-0.8) 11/20/18 04:35 Eos # 0.1 K/mm3 (0.0-0.4) 11/20/18 04:35 Baso # 0.0 K/mm3 (0.0-0.1) 11/20/18 04:35 Seg Neutrophils % 74.8 % (40.0-70.0) H 11/20/18 04:35 Seg Neutrophils # 5.4 K/mm3 (1.8-7.7) 11/20/18 04:35 PT 14.2 Sec. (12.2-14.9) 11/16/18 05:15 INR 1.13 (0.87-1.13) 11/16/18 05:15 APTT 28.1 Sec. (24.2-36.6) 11/12/18 19:28 Sodium 134 mmol/L (137-145) L 11/21/18 06:03 Potassium 3.7 mmol/L (3.6-5.0) 11/21/18 06:03 Chloride 99.1 mmol/L (98-107) 11/21/18 06:03 Carbon Dioxide 22 mmol/L (22-30) 11/21/18 06:03 17 mmol/L 11/21/18 06:03 BUN 18 mg/dL (9-20) 11/21/18 06:03 1.5 mg/dL (0.8-1.5) 11/21/18 06:03 Estimated GFR 56 ml/min 11/21/18 06:03 12 % 11/21/18 06:03 Glucose 152 mg/dL (75-100) H 11/21/18 06:03 POC Glucose 287 (70-105) H 11/12/18 20:18 321 Mosm/kg 11/13/18 10:40 7.1 mg/dL (3.5-7.6) 11/13/18 10:40 Calcium 8.8 mg/dL (8.4-10.2) 11/21/18 06:03 Magnesium 2.80 mg/dL (1.7-2.3) H 11/12/18 19:28 Iron 36 ug/dL (49-181) L 11/14/18 05:50 TIBC 153 mcg/dL (250-450) L 11/14/18 05:50 896.0 ng/mL (13.0-400.0) H 11/14/18 05:50 1.70 mg/dL (0.1-1.2) H 11/12/18 19:28 AST 46 units/L (5-40) H 11/12/18 19:28 ALT 52 units/L (7-56) 11/12/18 19:28 95 units/L (35-129) 11/12/18 19:28 37.0 umol/L (25-60) 11/12/18 19:28 1255 units/L (55-170) H 11/15/18 04:16 CK-MB (CK-2) 17.0 ng/mL (0.0-4.0) H 11/13/18 14:54 CK-MB (CK-2) Rel Index 1.2 (0-4) 11/13/18 14:54 0.049 ng/mL (0.00-0.029) H D 11/13/18 14:54 7.2 g/dL (6.3-8.2) 11/12/18 19:28 3.3 g/dL (3.9-5) L 11/12/18 19:28 0.8 % 11/12/18 19:28 Triglycerides 95 mg/dL (2-149) 11/12/18 19:28 Cholesterol 103 mg/dL (50-199) 11/12/18 19:28 58 mg/dL (50-130) 11/12/18 19:28 44 mg/dL (40-59) 11/12/18 19:28 2.34 % 11/12/18 19:28 Yellow (Yellow) 11/12/18 20:32 Clear (Clear) 11/12/18 20:32 5.0 (5.0-7.0) 11/12/18 20:32 Ur Specific [place] 1.017 (1.003-1.030) 11/12/18 20:32 30 mg/dl mg/dL (Negative) 11/12/18 20:32 >=500 mg/dL (Negative) 11/12/18 20:32 Neg mg/dL (Negative) 11/12/18 20:32 Mod (Negative) 11/12/18 20:32 Neg (Negative) 11/12/18 20:32 Neg (Negative) 11/12/18 20:32 < 2.0 mg/dL (<2.0) 11/12/18 20:32 Ur Leukocyte Esterase Neg (Negative) 11/12/18 20:32 < 1.0 /HPF (0.0-6.0) 11/12/18 20:32 2.0 /HPF (0.0-6.0) 11/12/18 20:32 101.2 mg/dL (0.1-20.0) H 11/13/18 19:00 28 mmol/L 11/13/18 19:00 36 mg/dL (5-11.8) H 11/13/18 19:00 Salicylates < 0.3 mg/dL (2.8-20.0) L 11/12/18 19:28 Presumptive negative 11/12/18 20:32 Presumptive negative 11/12/18 20:32 Acetaminophen < 5.0 ug/mL (10.0-30.0) L 11/12/18 19:28 Ur Barbiturates Screen Presumptive negative 11/12/18 20:32 Ur Phencyclidine Scrn Presumptive negative 11/12/18 20:32 Ur Amphetamines Screen Presumptive negative 11/12/18 20:32 U Benzodiazepines Scrn Presumptive negative 11/12/18 20:32 Presumptive negative 11/12/18 20:32 U Marijuana (THC) Screen Presumptive negative 11/12/18 20:32 Disclamer 11/12/18 20:32 Plasma/Serum Alcohol < 0.01 % (0-0.07) 11/12/18 19:28 Active Medications - Current Medications Current Medications: Generic Name Dose Route Start Last Admin Trade Name Freq PRN Reason Stop Dose Admin Acetaminophen 650 mg 11/13/18 00:50 Tylenol PO Q4H PRN Pain MILD(1-3)/Fever >100.5/CORTES Hydralazine HCl 10 mg 11/16/18 10:00 11/16/18 10:20 Apresoline IV 10 mg Q4HR PRN Administration Blood Pressure Ondansetron HCl 4 mg 11/13/18 00:50 Zofran IV Q4H PRN Nausea And Vomiting Pantoprazole Sodium 40 mg 11/15/18 10:00 11/21/18 09:28 Protonix PO 40 mg QDAY EMERSON Administration Sodium Bicarbonate 1,300 mg 11/18/18 12:00 11/21/18 09:28 Sodium Bicarbonate PO 1,300 mg BID EMERSON Administration Sodium Chloride 10 ml 11/13/18 10:00 11/21/18 09:29 Sodium Chloride Flush Syringe 10 Ml IV 10 ml BID EMERSON Administration Sodium Chloride 10 ml 11/13/18 00:50 Sodium Chloride Flush Syringe 10 Ml IV PRN PRN LINE FLUSH Nutrition/Malnutrition Assess - Dietary Evaluation Nutrition/Malnutrition Findings: Nutrition Notes Start: 11/13/18 12:07 Freq: Status: Active Protocol: Document 11/19/18 15:19 OH (Rec: 11/19/18 15:30 OH [id number]) Nutrition Notes Initial or Follow up Reassessment Current Diet Pureed Labs/Tests Na 134 ALB 3.3 k+ 3.4 Pertinent Medications Reviewed Height 6 ft Weight 60.9 kg [place] Body Weight (kg) 80.90 BMI 18.1 Weight change and time frame RD weighed pt in bed. Subjective/Other Information Pt. reports he is eating his meals. Per ST pt is to continue with pureed and thin liquids. Pt w/o teeth. Pt. requesting to know when he can go home. Per notes pt [facility]. Percent of energy/protein needs met: 50/50 Burn Absent Trauma Absent Difficulty In Chewing Current % PO Poor (25-49%) #2 Nutrition Diagnosis Malnutrition As Evidenced by Signs and Symptoms BMI 18.3, temporal wasting #1 Nutrition Diagnosis Inadequate oral intake Diagnosis Progress(for reassessment Continues documentation) Is patient on ventilator? No Is Patient Ambulatory and/or Out of Bed No REE-([place]-[facility] Je[facility]-confined to bed) 1676.676 Kcal/Kg value to use for calculation 40 Approximate Energy Requirements Using 2436 kcal/Kg Calculation Used for Recommendations Kcal/kg Additional Notes Protein needs are 84-101g (1-1 .2g/kg) Fluid needs are 1ml/kcal Nutrition Intervention Change Diet Order: Pureed, Renal Add Supplement/Snack (indicate name/kcal ensure clear bid /protein ) Provides kCal: 480 Provides Protein (gm) 16 Goal #1 Meet at least 75% of calorie and protein needs via PO and ONS intakes Anticipated Discharge Needs: Unable to determine at this time Follow-Up By: 11/22/18 Additional Comments Follow for PO and ONS intakes
[2018-11-22 07:12] LABS: Albumin 2.9 g/dL (3.9-5); Calcium 8.8 mg/dL (8.4-10.2)
--- NOTE | 2018-11-22 08:59 | Progress Note ---
Assessment and Plan Assessment: * Nonoliguric SAMARA secondary to prerenal azotemia on stage III chronic kidney disease --Renal u/s: diffusely echogenic kidneys * Pelvic fracture (nondisplaced) s/p fall * Anemia w/ heme + stool * Metabolic acidosis * Hyponatremia * Hypertension * Abdominal aorta aneurysm * Rhabdomyolysis, mild Plan: * Renal function is stable. Continue conservative management * Continue Amlodipine 5mg daily * Hyponatremia noted; sodium fluctuates; medications/IVF reviewed, follow for now * Continue NaBicarb tabs - acidosis improved * Ortho recommendations noted - WBAT PT * GI following - patient has refused colonoscopy/EGD * Dose medications for renal function * Avoid potential nephrotoxins Subjective Date of service: 11/22/18 Principal diagnosis: occult +stool, anemia Interval history: Patient has no complaints today Objective - Vital Signs Vital signs: Vital Signs - 12hr 11/21/18 11/22/18 11/22/18 22:57 04:07 07:55 Temperature 98.4 F 98.3 F 98.8 F Pulse Rate 60 60 68 Respiratory 18 20 18 Rate Blood Pressure 166/62 143/60 154/64 O2 Sat by Pulse 94 96 95 Oximetry - General Appearance General appearance: well-developed EENT: ATNC Cardiology: regular, S1S2 Gastrointestinal: normal Integumentary: no rash, warm and dry Musculoskeletal: other (no edema) Psychiatric: cooperative - Lab 11/21/18 06:03 11/22/18 06:41 Most recent lab results Calcium 8.8 mg/dL (8.4-10.2) 11/22/18 06:41 Magnesium 2.80 mg/dL (1.7-2.3) H 11/12/18 19:28 101.2 mg/dL (0.1-20.0) H 11/13/18 19:00 28 mmol/L 11/13/18 19:00 36 mg/dL (5-11.8) H 11/13/18 19:00 Medications & Allergies - Medications Allergies/Adverse Reactions: Allergies No Known Allergies Allergy (Verified 11/12/18 22:27) Home Medications: Home Medications Medication Instructions Recorded Confirmed Last Taken Type Pantoprazole [Protonix TAB] 40 mg PO QDAY #30 tablet 11/22/18 Unknown Rx amLODIPine [Norvasc] 5 mg PO QDAY #30 tablet 11/22/18 Unknown Rx Active Medications: Generic Name Dose Route Start Last Admin Trade Name Freq PRN Reason Stop Dose Admin Acetaminophen 650 mg 11/13/18 00:50 Tylenol PO Q4H PRN Pain MILD(1-3)/Fever >100.5/CORTES Amlodipine Besylate 5 mg 11/22/18 10:00 Norvasc PO QDAY EMERSON Hydralazine HCl 10 mg 11/16/18 10:00 11/16/18 10:20 Apresoline IV 10 mg Q4HR PRN Administration Blood Pressure Ondansetron HCl 4 mg 11/13/18 00:50 Zofran IV Q4H PRN Nausea And Vomiting Pantoprazole Sodium 40 mg 11/15/18 10:00 11/21/18 09:28 Protonix PO 40 mg QDAY EMERSON Administration Sodium Bicarbonate 1,300 mg 11/18/18 12:00 11/21/18 21:33 Sodium Bicarbonate PO 1,300 mg BID EMERSON Administration Sodium Chloride 10 ml 11/13/18 10:00 11/21/18 21:34 Sodium Chloride Flush Syringe 10 Ml IV 10 ml BID EMERSON Administration Sodium Chloride 10 ml 11/13/18 00:50 Sodium Chloride Flush Syringe 10 Ml IV PRN PRN LINE FLUSH
[2018-11-22] MEDS: SODIUM BICARBONATE PO SCH ×2 (10:22→21:18)
[2018-11-22] MEDS: SODIUM CHLORIDE FLUSH SYRINGE 10 ML IV SCH ×2 (10:22→21:18)
[2018-11-22] MEDS: PROTONIX PO SCH (10:22)
[2018-11-22] MEDS: NORVASC PO SCH (10:22)
--- NOTE | 2018-11-22 11:28 | Progress Note ---
Assessment and Plan Assessment and plan: GI bleed. GI following. Patient with no active signs of GI bleeding. GI plans to evaluate with EGD and colonoscopy as an outpatient. Patient refuses colon prep previously and is currently refusing procedures. No POA available. Continue PPI Anemia. Continue to monitor H&H and transfuse for hemoglobin less than 7. Acute on chronic renal insufficiency. Etiology likely secondary to acute kidney injury from vasomotor nephropathy/dehydration. Creatinine continues to improve. Nephrology following Pelvic fracture. Orthopedics recommends passive range of motion. Physical therapy following. Abnormal cardiac enzymes. No reports of chest pain. Etiology likely secondary to renal insufficiency. Mild rhabdomyolysis. Continue IV fluids. F/U CK A. fib. Rate currently controlled. Patient was reportedly on anticoagulation at home. No meds were initiated secondary to GI bleed as noted above. Acute hypoxic respiratory failure. Continue O2 to maintain sats greater or 92%. Abdominal aortic aneurysm 3.4 cm. Outpatient vascular follow-up. Disposition. Await PT recommendations. May need placement. Discussed with assistant case manager. History Interval history: Gen weakness Hospitalist Physical - Physical exam Narrative exam: Gen: Not in acute distress, lying in bed, malnourished HEENT: Normocephalic, atraumatic Neck: supple, no JVD Heart: S1 and S2 reg, no murmurs, rubs or gallop Lungs: Clear, no crackles, no rhonchi Abd: soft, non tender, non distended, normal BS, Ext: No edema, no clubbing, no cyanosis Neuro: Lethargic - Constitutional Vitals: Temp Pulse Resp BP Pulse Ox 98.8 F 68 18 154/64 98 11/22/18 07:55 11/22/18 10:22 11/22/18 10:00 11/22/18 10:22 11/22/18 10:00 General appearance: Present: no acute distress, cachectic Results - Labs CBC & Chem 7: 11/21/18 06:03 11/22/18 06:41 Labs: Laboratory Last Values WBC 5.6 K/mm3 (4.5-11.0) 11/21/18 06:03 RBC 2.89 M/mm3 (3.65-5.03) L 11/21/18 06:03 Hgb 9.1 gm/dl (11.8-15.2) L 11/21/18 06:03 Hct 26.1 % (35.5-45.6) L 11/21/18 06:03 MCV 90 fl (84-94) 11/21/18 06:03 MCH 31 pg (28-32) 11/21/18 06:03 MCHC 35 % (32-34) H 11/21/18 06:03 RDW 15.1 % (13.2-15.2) 11/21/18 06:03 Plt Count 258 K/mm3 (140-440) 11/21/18 06:03 Lymph % (Auto) 13.4 % (13.4-35.0) 11/20/18 04:35 Centre % (Auto) 10.3 % (0.0-7.3) H 11/20/18 04:35 Eos % (Auto) 1.3 % (0.0-4.3) 11/20/18 04:35 Baso % (Auto) 0.2 % (0.0-1.8) 11/20/18 04:35 Lymph # 1.0 K/mm3 (1.2-5.4) L 11/20/18 04:35 Centre # 0.7 K/mm3 (0.0-0.8) 11/20/18 04:35 Eos # 0.1 K/mm3 (0.0-0.4) 11/20/18 04:35 Baso # 0.0 K/mm3 (0.0-0.1) 11/20/18 04:35 Seg Neutrophils % 74.8 % (40.0-70.0) H 11/20/18 04:35 Seg Neutrophils # 5.4 K/mm3 (1.8-7.7) 11/20/18 04:35 PT 14.2 Sec. (12.2-14.9) 11/16/18 05:15 INR 1.13 (0.87-1.13) 11/16/18 05:15 APTT 28.1 Sec. (24.2-36.6) 11/12/18 19:28 Sodium 130 mmol/L (137-145) L 11/22/18 06:41 Potassium 3.7 mmol/L (3.6-5.0) 11/22/18 06:41 Chloride 96.4 mmol/L (98-107) L 11/22/18 06:41 Carbon Dioxide 23 mmol/L (22-30) 11/22/18 06:41 14 mmol/L 11/22/18 06:41 BUN 15 mg/dL (9-20) 11/22/18 06:41 1.5 mg/dL (0.8-1.5) 11/22/18 06:41 Estimated GFR 56 ml/min 11/22/18 06:41 10 % 11/22/18 06:41 Glucose 153 mg/dL (75-100) H 11/22/18 06:41 POC Glucose 287 (70-105) H 11/12/18 20:18 321 Mosm/kg 11/13/18 10:40 7.1 mg/dL (3.5-7.6) 11/13/18 10:40 Calcium 8.8 mg/dL (8.4-10.2) 11/22/18 06:41 Magnesium 2.80 mg/dL (1.7-2.3) H 11/12/18 19:28 Iron 36 ug/dL (49-181) L 11/14/18 05:50 TIBC 153 mcg/dL (250-450) L 11/14/18 05:50 896.0 ng/mL (13.0-400.0) H 11/14/18 05:50 1.40 mg/dL (0.1-1.2) H 11/22/18 06:41 AST 26 units/L (5-40) 11/22/18 06:41 ALT 38 units/L (7-56) 11/22/18 06:41 122 units/L (35-129) 11/22/18 06:41 37.0 umol/L (25-60) 11/12/18 19:28 64 units/L (55-170) 11/22/18 06:41 CK-MB (CK-2) 17.0 ng/mL (0.0-4.0) H 11/13/18 14:54 CK-MB (CK-2) Rel Index 1.2 (0-4) 11/13/18 14:54 0.049 ng/mL (0.00-0.029) H D 11/13/18 14:54 6.4 g/dL (6.3-8.2) 11/22/18 06:41 2.9 g/dL (3.9-5) L 11/22/18 06:41 0.8 % 11/22/18 06:41 Triglycerides 95 mg/dL (2-149) 11/12/18 19:28 Cholesterol 103 mg/dL (50-199) 11/12/18 19:28 58 mg/dL (50-130) 11/12/18 19:28 44 mg/dL (40-59) 11/12/18 19:28 2.34 % 11/12/18 19:28 Yellow (Yellow) 11/12/18 20:32 Clear (Clear) 11/12/18 20:32 5.0 (5.0-7.0) 11/12/18 20:32 Ur Specific [place] 1.017 (1.003-1.030) 11/12/18 20:32 30 mg/dl mg/dL (Negative) 11/12/18 20:32 >=500 mg/dL (Negative) 11/12/18 20:32 Neg mg/dL (Negative) 11/12/18 20:32 Mod (Negative) 11/12/18 20:32 Neg (Negative) 11/12/18 20:32 Neg (Negative) 11/12/18 20:32 < 2.0 mg/dL (<2.0) 11/12/18 20:32 Ur Leukocyte Esterase Neg (Negative) 11/12/18 20:32 < 1.0 /HPF (0.0-6.0) 11/12/18 20:32 2.0 /HPF (0.0-6.0) 11/12/18 20:32 101.2 mg/dL (0.1-20.0) H 11/13/18 19:00 28 mmol/L 11/13/18 19:00 36 mg/dL (5-11.8) H 11/13/18 19:00 Salicylates < 0.3 mg/dL (2.8-20.0) L 11/12/18 19:28 Presumptive negative 11/12/18 20:32 Presumptive negative 11/12/18 20:32 Acetaminophen < 5.0 ug/mL (10.0-30.0) L 11/12/18 19:28 Ur Barbiturates Screen Presumptive negative 11/12/18 20:32 Ur Phencyclidine Scrn Presumptive negative 11/12/18 20:32 Ur Amphetamines Screen Presumptive negative 11/12/18 20:32 U Benzodiazepines Scrn Presumptive negative 11/12/18 20:32 Presumptive negative 11/12/18 20:32 U Marijuana (THC) Screen Presumptive negative 11/12/18 20:32 Disclamer 11/12/18 20:32 Plasma/Serum Alcohol < 0.01 % (0-0.07) 11/12/18 19:28 Active Medications - Current Medications Current Medications: Generic Name Dose Route Start Last Admin Trade Name Freq PRN Reason Stop Dose Admin Acetaminophen 650 mg 11/13/18 00:50 Tylenol PO Q4H PRN Pain MILD(1-3)/Fever >100.5/CORTES Amlodipine Besylate 5 mg 11/22/18 10:00 11/22/18 10:22 Norvasc PO 5 mg QDAY EMERSON Administration Hydralazine HCl 10 mg 11/16/18 10:00 11/16/18 10:20 Apresoline IV 10 mg Q4HR PRN Administration Blood Pressure Ondansetron HCl 4 mg 11/13/18 00:50 Zofran IV Q4H PRN Nausea And Vomiting Pantoprazole Sodium 40 mg 11/15/18 10:00 11/22/18 10:22 Protonix PO 40 mg QDAY EMERSON Administration Sodium Bicarbonate 1,300 mg 11/18/18 12:00 11/22/18 10:22 Sodium Bicarbonate PO 1,300 mg BID EMERSON Administration Sodium Chloride 10 ml 11/13/18 10:00 11/22/18 10:22 Sodium Chloride Flush Syringe 10 Ml IV 10 ml BID EMERSON Administration Sodium Chloride 10 ml 11/13/18 00:50 Sodium Chloride Flush Syringe 10 Ml IV PRN PRN LINE FLUSH Nutrition/Malnutrition Assess - Dietary Evaluation Nutrition/Malnutrition Findings: Nutrition Notes Start: 11/13/18 12:07 Freq: Status: Active Protocol: Document 11/19/18 15:19 OH (Rec: 11/19/18 15:30 OH [id number]) Nutrition Notes Initial or Follow up Reassessment Current Diet Pureed Labs/Tests Na 134 ALB 3.3 k+ 3.4 Pertinent Medications Reviewed Height 6 ft Weight 60.9 kg [place] Body Weight (kg) 80.90 BMI 18.1 Weight change and time frame RD weighed pt in bed. Subjective/Other Information Pt. reports he is eating his meals. Per ST pt is to continue with pureed and thin liquids. Pt w/o teeth. Pt. requesting to know when he can go home. Per notes pt resides @ [facility]. Percent of energy/protein needs met: 50/50 Burn Absent Trauma Absent Difficulty In Chewing Current % PO Poor (25-49%) #2 Nutrition Diagnosis Malnutrition As Evidenced by Signs and Symptoms BMI 18.3, temporal wasting #1 Nutrition Diagnosis Inadequate oral intake Diagnosis Progress(for reassessment Continues documentation) Is patient on ventilator? No Is Patient Ambulatory and/or Out of Bed No REE-([facility]-confined to bed) 1676.676 Kcal/Kg value to use for calculation 40 Approximate Energy Requirements Using 2436 kcal/Kg Calculation Used for Recommendations Kcal/kg Additional Notes Protein needs are 84-101g (1-1 .2g/kg) Fluid needs are 1ml/kcal Nutrition Intervention Change Diet Order: Pureed, Renal Add Supplement/Snack (indicate name/kcal ensure clear bid /protein ) Provides kCal: 480 Provides Protein (gm) 16 Goal #1 Meet at least 75% of calorie and protein needs via PO and ONS intakes Anticipated Discharge Needs: Unable to determine at this time Follow-Up By: 11/22/18 Additional Comments Follow for PO and ONS intakes
--- NOTE | 2018-11-22 13:18 | Discharge Summary ---
Providers - Providers Date of Admission: 11/13/18 00:50 Date of discharge: 11/22/18 Attending physician: CAROLYNN LUJAN 11/12/18 20:37 Consult to Physician [CONS] Urgent Comment: Consulting Provider: VEGA HAMM Physician Instructions: Reason For Exam: guic + stool dec in hct 11/13/18 06:41 Consult to Physician [CONS] Routine Comment: Consulting Provider: OSMANY JAQUEZ Physician Instructions: Reason For Exam: arf 11/13/18 10:25 Consult to Case Management [CONS] Routine Services Needed at Discharge: Orthopedic Specialist Notified:: case management 11/13/18 10:37 Speech Therapy Evaluation and Treat [CONS] Routine Reason For Exam: eval for diet 11/13/18 13:50 Consult to Physician [CONS] Routine Comment: Consulting Provider: ANNE YORK Physician Instructions: Reason For Exam: pelvic fx 11/15/18 18:33 Physical Therapy Evaluation and Treat [CONS] Routine Comment: Reason For Exam: pelvic fracture - stable Weight bearing status?: Full wt bearing Assistive devices?: Yes If so list: Walker Primary care physician: [facility] Hospitalization Condition: Fair Disposition: DC-01 TO HOME OR SELFCARE Core Measure Documentation - Palliative Care Palliative Care/ Comfort Measures: Not Applicable Exam - Constitutional Vitals: Temp Pulse Resp BP Pulse Ox 98.3 F 60 18 148/59 96 11/22/18 12:16 11/22/18 12:16 11/22/18 12:16 11/22/18 12:16 11/22/18 12:16 Plan Activity: advance as tolerated Diet: other (Pureed diet) Additional Instructions: 1.Follow up with PCP in 1 week Care Plan Goals: Improve activities of daily living Plan of Treatment: 1.Follow up with PCP in 1 week. 2.Follow up with Dr. Santiago, Nephrology in 1 week 3.Follow up with Dr. Hamm, GI in 1 week 4.Follow up with Cardiology in 1 week Assessment: 1.Acute GI bleed. 2.Acute on CKD [facility] - 3-5 Days Prescriptions: amLODIPine [Norvasc] 5 mg PO QDAY #30 tablet Pantoprazole [Protonix TAB] 40 mg PO QDAY #30 tablet
[2018-11-23 07:56] VITALS: BP 160/71
[2018-11-23] MEDS: PROTONIX PO SCH (09:14)
[2018-11-23] MEDS: SODIUM BICARBONATE PO SCH (09:14)
[2018-11-23] MEDS: NORVASC PO SCH (09:14)
[2018-11-23] MEDS: SODIUM CHLORIDE FLUSH SYRINGE 10 ML IV SCH (09:20)
--- NOTE | 2018-11-23 11:41 | Event Note ---
Date: 11/23/18 Patient was to go to Assisted living facility but not accepted, therefore SNF arranged. I have seen and examined him today. Discharge to SNF today.
--- NOTE | 2018-11-23 13:55 | Progress Note ---
Subjective Date of service: 11/23/18 Principal diagnosis: occult +stool, anemia Objective - Vital Signs Vital signs: Vital Signs - 12hr 11/23/18 11/23/18 11/23/18 04:39 07:27 08:04 Temperature 98.0 F 98.8 F Pulse Rate 60 64 Pulse Rate [ 60 Apical] Respiratory 18 18 18 Rate Blood Pressure 156/62 160/71 O2 Sat by Pulse 97 94 98 Oximetry 11/23/18 09:14 Temperature Pulse Rate 64 Pulse Rate [ Apical] Respiratory Rate Blood Pressure 160/71 O2 Sat by Pulse Oximetry - Lab 11/21/18 06:03 11/22/18 06:41 Most recent lab results Calcium 8.8 mg/dL (8.4-10.2) 11/22/18 06:41 Magnesium 2.80 mg/dL (1.7-2.3) H 11/12/18 19:28 101.2 mg/dL (0.1-20.0) H 11/13/18 19:00 28 mmol/L 11/13/18 19:00 36 mg/dL (5-11.8) H 11/13/18 19:00 Medications & Allergies - Medications Allergies/Adverse Reactions: Allergies No Known Allergies Allergy (Verified 11/12/18 22:27) Home Medications: Home Medications Medication Instructions Recorded Confirmed Last Taken Type Pantoprazole [Protonix TAB] 40 mg PO QDAY #30 tablet 11/22/18 Unknown Rx amLODIPine [Norvasc] 5 mg PO QDAY #30 tablet 11/22/18 Unknown Rx
== END 2018-11-23 13:05 | DRG 377 ==
LOC: ED 18:32 → 4A 11-13 00:50
PROVIDERS: ADMIT Internal Medicine; ATTEND Internal Medicine
PROC: 4A033R1 Measurement of Arterial Saturation, Peripheral, Percutaneous Approach (ICD-10-PCS; principal; 2018-11-12)
DX: K92.2 Gastrointestinal hemorrhage, unspecified (principal); J96.01 Acute respiratory failure with hypoxia; E87.1 Hypo-osmolality and hyponatremia; M62.82 Rhabdomyolysis; E87.2 Acidosis; S32.89XA Fracture of other parts of pelvis, initial encounter for closed fracture; N17.9 Acute kidney failure, unspecified; R56.9 Unspecified convulsions; M60.9 Myositis, unspecified; D64.89 Other specified anemias; I48.91 Unspecified atrial fibrillation; N18.3 Chronic kidney disease, stage 3 (moderate); I12.9 Hypertensive chronic kidney disease with stage 1 through stage 4 chronic kidney disease, or unspecified chronic kidney disease; W18.39XA Other fall on same level, initial encounter; I71.4 Abdominal aortic aneurysm, without rupture; E86.0 Dehydration; Z86.73 Personal history of transient ischemic attack (TIA), and cerebral infarction without residual deficits; Y93.89 Activity, other specified; Y92.89 Other specified places as the place of occurrence of the external cause; Y99.8 Other external cause status; Z72.89 Other problems related to lifestyle; Z95.0 Presence of cardiac pacemaker; Z79.01 Long term (current) use of anticoagulants
CPT/HCPCS: 36415; 36600; 70450; 71045; 72125; 72170; 74176; 76770; 80048; 80053; 80061; 80307; 80320; 81001; 82140; 82271; 82550; 82553; 82570; 82728; 82962; 83550; 83735; 83930; 84156; 84300; 84484; 84550; 85014; 85018; 85025; 85027; 85610; 85730; 93005; 93010; 93306; 94644; 94760; 96361; 96365; 96366; 96375; G0378; C9113; G0480; J0360; J1815; J1953; J7030; J7040